=== PATIENT | female | born 1965 | race Caucasian/White ===

== ENCOUNTER 2018-07-27 14:57 | Emergency (ER) | payer OTHER ==
[2018-07-27 15:31] LABS: Bilirubin Negative (Negative); Blood, Urine Trace (Negative); Clarity CLOUDY (Clear); Glucose, Urine (Dipstick) Negative (Negative); Leukocyte Negative (Negative); Nitrite Negative (Negative); Protein, Urine (Dipstick) Negative (Neg-Trace); Specific Gravity, Urine 1.023 (1.002-1.036); pH, Urine 5.5 (5.0-9.0)
[2018-07-27 15:33] LABS: Bacteria/HPF None Seen HPF (None Seen); RBC/HPF 0-3 HPF (0-3)
[2018-07-27 15:35] LABS: Pathc Cast-AUWi Flag 3.26 (0-2.49)
[2018-07-27 15:42] LABS: #Eosinphils 0.1 thou/uL (0.0-0.7); #Lymphocytes 0.8 thou/uL (1.20-3.40); #Monocytes 0.2 thou/uL (0.11-0.59); #Neutrophils 2.5 thou/uL (1.40-6.50); %Basophils 1.1 % (0.0-1.0); %Eosinophils 2.1 % (0.0-10.0); %Lymphocytes 23.1 % (21.0-51.0); %Monocytes 4.8 % (0.0-10.0); %Neutrophils 68.9 % (42.0-75.0); Mean Corpuscular HGB CONC 32.1 g/dL (32.0-36.0); Mean Corpuscular Hemoglobin 26.7 pg (27.0-31.0); Mean Corpuscular Volume 83.4 fL (78.0-98.0); Mean Platelet Volume 8.2 fL (7.4-10.4); Platelet Count 141 thou/uL (130-400); RBC Distribution Width 15.5 % (11.5-14.5); White Blood Cell (WBC) Count 3.6 thou/uL (4.8-10.8)
[2018-07-27 15:44] LABS: Hyaline Casts/LPF 0-3 HYALINE CAST LPF (0-3 Hyaline); Other Casts/LPF 0-3 EPITH CASTS LPF (0-3 Hyaline); Renal Epithelial 0-3 HPF (0-3); Transitional Epithelial 0-3 HPF (0-3)
[2018-07-27 16:02] LABS: ALT (SGPT) 20 U/L (8-55); AST (SGOT) 22 U/L (5-34); Albumin 3.4 g/dL (3.5-5.0); Alkaline Phosphatase 178 U/L (40-150); Anion Gap 14 mmol/L (10-20); BUN (Urea Nitrogen) 18 mg/dL (9.8-20.1); Bilirubin, Total 0.6 mg/dL (0.2-1.2); Calc. Creatinine Clearance 0 mL/min (70-130); Calcium 9.1 mg/dL (7.8-10.44); Carbon Dioxide 27 mmol/L (22-29); Chloride 105 mmol/L (98-107); Estimated GFR-MDRD 82; Globulin 3.7 g/dL (2.4-3.5); Glucose 168 mg/dL (70-105); Potassium 4.2 mmol/L (3.5-5.1); Protein, Total 7.1 g/dL (6.0-8.3); Sodium 142 mmol/L (136-145)
--- NOTE | 2018-07-27 17:44 | RAD ---
CHEST ONE VIEW: 07/27/18 HISTORY: Productive cough. COMPARISON: 04/02/07 study. Heart size is borderline. There is some bibasilar lung changes slightly more confluent in the right c ostophrenic angle. IMPRESSION: 1. Borderline to minimal cardiomegaly. 2. Bibasilar lung change probably on the basis of atelectasis although the changes in the right base are slightly more confluent and could represent some early infiltrative changes. POS: ERIK
[2018-07-27] MEDS ORDERED: Acetaminophen 500 MG TAB ONE (18:26)
== END 2018-07-27 18:54 | disposition home or self-care (01) ==
LOC: ERS 14:57
DX: J44.9 Chronic obstructive pulmonary disease, unspecified (principal); B37.2 Candidiasis of skin and nail; R10.814 Left lower quadrant abdominal tenderness; R10.9 Unspecified abdominal pain; E11.9 Type 2 diabetes mellitus without complications; F32.9 Major depressive disorder, single episode, unspecified; F17.210 Nicotine dependence, cigarettes, uncomplicated; E66.9 Obesity, unspecified; Z79.84 Long term (current) use of oral hypoglycemic drugs; Z79.899 Other long term (current) drug therapy; Z79.51 Long term (current) use of inhaled steroids; Z79.1 Long term (current) use of non-steroidal anti-inflammatories (NSAID)
CPT/HCPCS: 36415; 36416; 71045; 80053; 81003; 81015; 83880; 85025; 94760

== ENCOUNTER 2018-08-04 12:17 | Inpatient (IN) | payer OTHER ==
[2018-08-04] MEDS ORDERED: Dexamethasone 10 MG/ML VIAL ONE (12:32)
[2018-08-04] MEDS ORDERED: Magnesium 2 GM/50 ML 2 GM in Premix Bag 1 BAG IVPB SCH (12:45)
[2018-08-04 12:52] LABS: #Eosinphils 0.1 thou/uL (0.0-0.7); #Monocytes 0.3 thou/uL (0.11-0.59); #Neutrophils 2.7 thou/uL (1.40-6.50); %Basophils 0.8 % (0.0-1.0); %Lymphocytes 24.8 % (21.0-51.0); %Monocytes 6.3 % (0.0-10.0); %Neutrophils 66.1 % (42.0-75.0); Mean Corpuscular HGB CONC 31.9 g/dL (32.0-36.0); Mean Corpuscular Hemoglobin 26.4 pg (27.0-31.0); Mean Corpuscular Volume 82.6 fL (78.0-98.0); Mean Platelet Volume 8.1 fL (7.4-10.4); Platelet Count 166 thou/uL (130-400); RBC Distribution Width 15.5 % (11.5-14.5); Red Blood Cell (RBC) Count 4.91 mill/uL (4.20-5.40); White Blood Cell (WBC) Count 4.2 thou/uL (4.8-10.8)
[2018-08-04 12:56] LABS: Actual Bicarbonate (HCO3a) 24.2 mEq/L (22-28); Analyzer IN Cardio ER; Base Excess (BEa) -0.9 mEq/L (-2.0 to +3.0); CO2 Tension 41.4 mmHg (35.0-45.0); Carboxyhemoglobin (COHb) 1.5 gm% (0.0-3.0); Hemoglobin (Hb) 13.3 g/dL (12.0-16.0); O2 Tension (PaO2) 111.9 mmHg (80.0-100.0); Potassium - ABG Lab 3.38 mmol/L (3.70-5.30); pH, Arterial 7.38 (7.35-7.45)
[2018-08-04 13:02] LABS: Puncture Site L.R.
--- NOTE | 2018-08-04 13:07 | RAD ---
CHEST 1 VIEW: Date: 08/04/18 COMPARISON: 07/27/18. HISTORY: Difficulty breathing. FINDINGS: Limited evaluation due to portable technique and motion. Heart size is normal. There is atheroscleros is of aorta. Pulmonary vessels are within normal limits. Right pleural effusion with adjacent parench ymal changes. Patchy interstitial opacities may represent edema. No pneumothorax. IMPRESSION: Interstitial edema with right lower lobe pleural effusion with adjacent parenchymal changes due to at electasis, aspiration, or pneumonia. Continued surveillance is recommended. POS: C
[2018-08-04] MEDS ORDERED: diphenhydrAMINE 50 MG/ML VIAL ONE (13:09)
[2018-08-04 13:21] LABS: ALT (SGPT) 20 U/L (8-55); AST (SGOT) 22 U/L (5-34); Albumin 3.5 g/dL (3.5-5.0); Alkaline Phosphatase 195 U/L (40-150); Anion Gap 14 mmol/L (10-20); BUN (Urea Nitrogen) 11 mg/dL (9.8-20.1); Bilirubin, Total 0.6 mg/dL (0.2-1.2); CK (CPK) 80 U/L (29-168); Calc. Creatinine Clearance 0 mL/min (70-130); Calcium 8.7 mg/dL (7.8-10.44); Carbon Dioxide 25 mmol/L (22-29); Chloride 107 mmol/L (98-107); Estimated GFR-MDRD 85; Globulin 3.9 g/dL (2.4-3.5); Glucose 135 mg/dL (70-105); Lipase 17 U/L (8-78); Potassium 3.6 mmol/L (3.5-5.1); Protein, Total 7.4 g/dL (6.0-8.3); Sodium 142 mmol/L (136-145)
[2018-08-04] MEDS ORDERED: Ondansetron PF 4 MG/2 ML Vial ONE (13:58)
[2018-08-04] MEDS ORDERED: Albuterol Sulfate 2.5 mg/0.5 ml Neb ONE (14:45)
[2018-08-04] MEDS ORDERED: Ondansetron ODT 4 MG TAB SL PRN (17:51)
[2018-08-04] MEDS ORDERED: Ondansetron PF 4 MG/2 ML Vial IVP PRN (17:51)
[2018-08-04] MEDS ORDERED: Aspirin 325 mg Enteric Coated Tablet PO SCH (18:00)
[2018-08-04 18:21] VITALS: BMI 47.8
[2018-08-04] MEDS ORDERED: HYDROcodone/Acetaminophen 5/325 mg Tablet PO PRN (20:01)
[2018-08-04] MEDS: HYDROcodone/Acetaminophen 5/325 mg Tablet PO PRN (20:44)
[2018-08-04] MEDS ORDERED: Dextrose 5% in Water 1,000 ML IV PRN (21:58)
[2018-08-04] MEDS ORDERED: Dextrose 50% Abboject 50 ML SYRINGE SLOW IVP PRN (21:58)
[2018-08-04] MEDS: HumaLOG 300 UNITS/3 ML VIAL SC PRN (22:17)
[2018-08-04] MEDS: methylPREDNISolone Sod Succ 40 MG VIAL IVP SCH (23:17)
[2018-08-05] MEDS: HYDROcodone/Acetaminophen 5/325 mg Tablet PO PRN ×5 (00:43→21:09)
[2018-08-05] MEDS: methylPREDNISolone Sod Succ 40 MG VIAL IVP SCH ×3 (05:09→21:48)
[2018-08-05] MEDS: HumaLOG 300 UNITS/3 ML VIAL SC PRN ×3 (06:00→16:24)
[2018-08-05] MEDS: Methocarbamol 500 MG TAB PO SCH ×3 (07:47→21:09)
[2018-08-05] MEDS: Varenicline Tartrate 0.5 MG TAB PO SCH ×2 (07:47→21:09)
--- NOTE | 2018-08-05 08:01 | HP ---
PRIMARY CARE PHYSICIAN: Dr. Andrey Benedict. CHIEF COMPLAINT: Shortness of breath. HISTORY OF PRESENT ILLNESS: This is a 53-year-old female patient with past medical history of COPD. The patient has came to the hospital complaining of shortness of breath with no clear triggers, no alleviating factors. Saturation was in the 92%, she wears 2 L at home. The symptoms have been present for the past few days and has severe and gradually worsening associated with audible wheezing. REVIEW OF SYSTEMS: CONSTITUTIONAL: No fever, chills, or generalized weakness. RESPIRATORY: The patient has cough. No sputum production. Shortness of breath. Wheezing. CARDIOVASCULAR: No chest pain or palpitation. GASTROINTESTINAL: No nausea. No vomiting, diarrhea, or abdominal pain. INSURANCE CLAIMS SPECIALIST: No dizziness, headache, or feeling lightheaded. GENITOURINARY: No burning on urination. EXTREMITIES: No leg swelling. All other systems were reviewed and negative except for the findings mentioned above. PAST MEDICAL HISTORY: Positive for COPD exacerbation; morbid obesity; diabetes, type 2; and cervical cancer. PAST SURGICAL HISTORY: removal, appendectomy, cholecystectomy, , and hysterectomy. PSYCHIATRIC HISTORY: Depression. SOCIAL HISTORY: No alcohol. No drugs. The patient smokes cigarettes, two packs per day. Lives at home with family. KNOWN ALLERGIES: Latex and morphine. CURRENT MEDICATIONS: 1. Ibuprofen. 2. ProAir. 3. Albuterol sulfate. 4. Chantix. 5. Gabapentin. 6. Methocarbamol. 7. Sertraline. 8. Glipizide. 9. Metformin. PHYSICAL EXAMINATION: VITAL SIGNS: On presentation; blood pressure 140/114, heart rate 116, respiratory rate was 24, temperature 98.6, pain was 8, and oxygen saturation was 100% on 4 L. GENERAL APPEARANCE: The patient is alert, oriented, no acute distress, morbidly obese. HEENT: Eyes, normal conjunctivae. Moist oral mucosa. Anicteric. No JVD. RESPIRATORY: Bilateral air entry. The patient has bilateral wheezing and rhonchi. Symmetric expansion. The patient has rales in the right lower lobe . CARDIOVASCULAR: Normal rate. Regular rhythm. No murmurs. No gallop. No edema. ABDOMEN: Soft. Normal bowel sounds. MUSCULOSKELETAL: Range of motion is at baseline and strength. SKIN: Warm, intact. No pallor. No rash. No redness. Capillary refill seems to be intact. NEURO: No evidence of any new focal weakness. Cranial nerves seem to be intact. PSYCH: The patient is in good mood. No anxiety. Optimal judgment. IMAGING DATA: EKG was reviewed. The patient has normal sinus rhythm with a rate of 92 with posterior fascicular block. Chest x-ray, right lower lobe pleural effusion. No infiltrates. LABORATORY DATA: Reviewed. The patient has a white count 4.2, hemoglobin 13, and MCV 82.6. Blood gas was done with pH 7.38, pCO2 of 41, and PO2 of 111. BiPAP at 12/5, rate 4, inspired oxygen 40%. Chemistry; sodium 142, potassium 3.6, chloride 107, carbon dioxide 25, anion gap 14, BUN 11, creatinine 0.72, GFR 85, and glucose 135. Lactic acid 1.8 and calcium 8.7. LFTs were negative. Alkaline phosphatase 195. Beta natriuretic peptide 1391. ASSESSMENT AND PLAN: The patient will be placed in the hospital with following medical problems; 1. Chronic obstructive pulmonary disease exacerbation associated with possible right lower lobe pneumonia. The patient has rales on the physical exam. The patient is on antibiotics, nebs, and steroids. We will follow up cultures and treat accordingly. 2. Possible right lower lobe infiltrate. The patient has rales on physical exam. This might be triggering the chronic obstructive pulmonary disease exacerbation. Treatment as above. 3. Morbidly obese. The patient reported she has lost 100 pounds and that had been intentional. Encourage to continue to lose weight and have a healthy diet. 4. Possible sepsis. The patient is leukopenic. The patient has possible pneumonia, rate in the 20s. Treatment as above. The patient received antibiotics. 5. Uncontrolled hypertension. The patient has blood pressure of 140/114, we will reconcile home medications. We will monitor and treat accordingly. We will not treat aggressively as the patient seems to be septic. 6. Uncontrolled diabetes. Reconcile home medications and place the patient on sliding scale for optimal control. 7. Acute hypoxic respiratory failure. The patient is needing an increased level of oxygen to keep saturation above 90. We will continue to supplement oxygen. 8. Deep venous thrombosis prophylaxis. Job ID: [id number]
--- NOTE | 2018-08-05 12:42 | PDOC.PN ---
- Subjective Encounter Start Date: 08/05/18 Encounter Start Time: 12:20 Subjective: breathing better now -: uses only rescue inh/alb neb prn -: on chantix, is trying to quit smoking - Objective MAR Reviewed: Yes Vital Signs & Weight: Vital Signs (12 hours) Temp Pulse Resp BP Pulse Ox 08/05/18 11:29 98.2 F 93 17 144/82 H 98 08/05/18 11:16 84 20 98 08/05/18 07:45 98 08/05/18 07:05 98.3 F 84 17 161/84 H 98 08/05/18 07:03 95 20 94 L 08/05/18 04:36 98.0 F 90 20 131/73 94 L 08/05/18 02:06 16 Weight Weight 314 lb 9.6 oz Result Diagrams: 08/04/18 12:39 08/04/18 12:39 Additional Labs: Accuchecks 08/05/18 08/05/18 08/04/18 11:34 05:34 19:31 POC Glucose 251 H 234 H 338 H Phys Exam - Physical Examination HEENT: PERRLA, moist MMs Neck: no JVD, supple Respiratory: no rales, wheezing present Cardiovascular: RRR, no significant murmur Gastrointestinal: soft, non-tender, positive bowel sounds Musculoskeletal: no edema, pulses present Neurological: non-focal, moves all 4 limbs Psychiatric: normal affect, A&O x 3 Dx/Plan (1) COPD exacerbation Code(s): J44.1 - CHRONIC OBSTRUCTIVE PULMONARY DISEASE W (ACUTE) EXACERBATION Status: Acute (2) Morbid obesity with BMI of 45.0-49.9, adult Code(s): E66.01 - MORBID (SEVERE) OBESITY DUE TO EXCESS CALORIES; Z68.42 - BODY MASS INDEX (BMI) 45.0-49.9, ADULT Status: Chronic (3) HTN (hypertension) Code(s): I10 - ESSENTIAL (PRIMARY) HYPERTENSION Status: Chronic Qualifiers: Hypertension type: essential hypertension Qualified Code(s): I10 - Essential (primary) hypertension (4) DM type 2 (diabetes mellitus, type 2) Status: Chronic Qualifiers: Diabetes mellitus termite control representative insulin use: without [place] use Diabetes mellitus complication status: without complication Qualified Code(s): E11.9 - Type 2 diabetes mellitus without complications (5) Chronic respiratory failure Code(s): J96.10 - CHRONIC RESPIRATORY FAILURE, UNSP W HYPOXIA OR HYPERCAPNIA Status: Acute Qualifiers: Respiratory failure complication: unspecified whether with hypoxia or hypercapnia Qualified Code(s): J96.10 - Chronic respiratory failure, unspecified whether with hypoxia or hypercapnia Comment: on oxygen at bedtime - Plan is on nebs, steroids, empiric levaquin -: will add dulera, continue chantix, metformin, glipizide -: has not seen pulm in the past, will consult -: hemostable -: to ambulate in hallway as tolerated * . Review of Systems - Medications/Allergies Allergies/Adverse Reactions: Allergies Allergy/AdvReac Type Severity Reaction Status Date / Time latex Allergy Verified 08/04/18 12:38 morphine Allergy Verified 08/04/18 18:14 TIDE LAUNDRY DETERGENT Allergy Uncoded 08/04/18 18:14 Medications: Current Medications Hydrocodone Bitart/Acetaminophen ([place] 5/325) 1 tab PO Q4H PRN PRN Reason: Mild-Moderate Pain (1-5) Hydrocodone Bitart/Acetaminophen ([place] 5/325) 2 tab PO Q4H PRN PRN Reason: Moderate to Severe Pain (6-10) Last Admin: 08/05/18 09:30 Dose: 2 tab Albuterol/Ipratropium (Duoneb) 3 ml NEB Q4H ATTILA Stop: 08/08/18 01:31 Last Admin: 08/05/18 11:16 Dose: 3 ml Albuterol/Ipratropium (Duoneb) 3 ml NEB Q2H PRN PRN Reason: SOB &/or Wheezing Stop: 08/08/18 01:31 Dextrose/Water (Dextrose 50%) 25 gm SLOW IVP PRN PRN PRN Reason: Hypoglycemia Docusate Sodium (Colace) 100 mg PO BID [facility] Gabapentin (Neurontin) 300 mg PO HS [facility] Glipizide (Glucotrol Xl) 5 mg PO DAILY [facility] Glucagon (Glucagon) 1 mg IM PRN PRN PRN Reason: Hypoglycemia Dextrose/Water (D5w) 1,000 mls @ 0 mls/hr IV .Q0M PRN PRN Reason: Hypoglycemia Levofloxacin 500 mg/ Device 100 mls @ 100 mls/hr IVPB Q24HR [facility] Last Admin: 08/05/18 11:37 Dose: 100 mls Ibuprofen (Motrin) 200 mg PO BID [facility] Insulin Human Lispro (Humalog) 0 units SC .MODERATE SLIDING SC PRN PRN Reason: Moderate Correctional Scale Last Admin: 08/05/18 12:13 Dose: 6 unit Metformin HCl (Glucophage) 1,000 mg PO BID[facility] Methocarbamol (Robaxin) 750 mg PO TID [facility] Last Admin: 08/05/18 07:47 Dose: 750 mg Methylprednisolone Sodium Succinate (Solu-Medrol) 20 mg IVP Q8HR [facility] Ondansetron HCl (Zofran) 4 mg IVP Q6H PRN PRN Reason: Nausea/Vomiting Stop: 08/08/18 01:31 Ondansetron HCl (Zofran Odt) 4 mg SL Q6H PRN PRN Reason: Nausea/Vomiting Stop: 08/08/18 01:31 Polyethylene Glycol (Miralax) 17 gm PO DAILY [facility] Sertraline HCl (Zoloft) 100 mg PO DAILY [facility] Last Admin: 08/05/18 07:47 Dose: 100 mg Sodium Chloride (Flush - Normal Saline) 10 ml IVF PRN PRN PRN Reason: Saline Flush Varenicline (Chantix) 1 mg PO BID [facility] Last Admin: 08/05/18 07:47 Dose: 1 mg
[2018-08-05] MEDS: Nystatin Powder 15 GM BOT TOP PRN (16:25)
--- NOTE | 2018-08-05 16:38 | CON ---
DATE OF CONSULTATION: HISTORY OF PRESENT ILLNESS: Catherine Terrazas is a 53-year-old, morbidly obese, female, who weighs 133 kg, presented to the ER with apparently shortness of breath, cough, and apparently chest pain on 07/27. She came to the ER on 08/04, again with symptoms of difficulty breathing, coughing, and sputum is relatively clear. X-ray shows now right-sided pleural effusion. She has smoked most of her life, 2 packs a day. She has severe limitation of activity. She can barely walk even 50 feet without getting markedly short of breath. She is presently disabled and unemployed. PAST MEDICAL HISTORY: COPD, diabetes, and hypertension. PAST SURGICAL HISTORY: Including uterine and cervical cancer, treated in [place], followed by radiation treatment. In addition, she has had cholecystectomy, , hernia repair, and hysterectomy. MEDICATIONS: Home medications include: 1. Metformin 1000 b.i.d. 2. Glipizide ER 5. 3. Chantix. 4. Zoloft 100. 5. Ibuprofen. 6. Gabapentin 300. 7. Albuterol inhaler. Since admission, she is started on: 1. Neb treatments. 2. Antibiotics, Levaquin. 3. Steroids. SOCIAL HISTORY: Unremarkable. Tobacco: As noted. Alcohol: None. FAMILY HISTORY: Unremarkable. REVIEW OF SYSTEMS: Ten-point, negative. PHYSICAL EXAMINATION: VITAL SIGNS: O2 saturation is 96% on 2 L, respirations 17, pulse 96, temperature 98.5, blood pressure 123/74. CHEST: Decreased breath sounds. No wheezing. CARDIAC: Normal S1 and S2. No gallop. ABDOMEN: No mass. LABORATORY DATA: White count 4000, H and H 13 and 40, platelet count is 166. Chemistry profile; glucose elevated, otherwise BUN and creatinine are normal. X-ray shows right pleural effusion. BNP is 1391. IMPRESSION: 1. Right pleural effusion. 2. Morbid obesity. 3. Chronic obstructive pulmonary disease. PLAN: Right pleural effusion could very well be from some congestive heart failure or pneumonia or pleurisy. Echo is being ordered. Otherwise, continue antibiotics, neb treatments, and supportive care. We will follow. TIME SPENT: Consultation note of 70 minutes, 50% in direct patient care. Job ID: [id number]
[2018-08-05] MEDS: Docusate 100 MG CAP PO SCH (21:09)
[2018-08-05] MEDS: Gabapentin 300 MG CAP PO SCH (21:09)
[2018-08-05] MEDS: Ibuprofen 200 MG TAB PO SCH (21:09)
[2018-08-06] MEDS: HYDROcodone/Acetaminophen 5/325 mg Tablet PO PRN ×5 (02:23→23:35)
[2018-08-06] MEDS: methylPREDNISolone Sod Succ 40 MG VIAL IVP SCH ×3 (05:24→21:31)
[2018-08-06] MEDS: HumaLOG 300 UNITS/3 ML VIAL SC PRN ×2 (05:24→12:36)
[2018-08-06] MEDS: Methocarbamol 500 MG TAB PO SCH ×3 (08:47→19:58)
[2018-08-06] MEDS: Varenicline Tartrate 0.5 MG TAB PO SCH ×2 (08:48→19:59)
[2018-08-06] MEDS: Docusate 100 MG CAP PO SCH ×2 (08:48→19:58)
[2018-08-06] MEDS: Ibuprofen 200 MG TAB PO SCH ×2 (08:48→19:58)
[2018-08-06] MEDS: metFORMIN 500 MG TAB PO SCH ×2 (08:48→16:56)
[2018-08-06] MEDS: Polyethylene Glycol 3350 17 GM Packet PO SCH (08:49)
--- NOTE | 2018-08-06 09:50 | PRG ---
DATE OF SERVICE: 08/06/2018 SUBJECTIVE: Catherine Terrazas is doing better this morning. She wants to go home. OBJECTIVE: VITAL SIGNS: Her saturations are 97% on 2 L, respirations 21, temperature 97.9, pulse 99, and blood pressure 130/87. CHEST: Decreased breath sounds bilaterally. CARDIAC: Normal S1 and S2. No gallops. ABDOMEN: No masses. ASSESSMENT: 1. Right pleural effusion. 2. Congestive heart failure. 3. Morbid obesity. PLAN: Continue antibiotics. X-ray tomorrow. If much improved, she could go home on oral antibiotics. Job ID: [id number]
--- NOTE | 2018-08-06 13:56 | PDOC.PN ---
- Subjective Encounter Start Date: 08/06/18 Encounter Start Time: 13:55 Ms. Terrazas was seen today in follow-up of respiratory failure. She does not have any new complaints. she tells me she feels better, but she can barely stay awake. - Objective MAR Reviewed: Yes Vital Signs & Weight: Vital Signs (12 hours) Temp Pulse Resp BP Pulse Ox 08/06/18 11:01 92 20 100 08/06/18 08:27 98 08/06/18 08:26 94 20 98 08/06/18 08:00 97 08/06/18 07:06 97.9 F 99 21 H 130/87 97 08/06/18 05:11 98.2 F 96 18 140/82 93 L 08/06/18 02:21 84 20 97 Weight Weight 314 lb 9.6 oz I&O: 08/05/18 08/06/18 08/07/18 06:59 06:59 06:59 Intake Total 1581 Balance 1581 Result Diagrams: 08/04/18 12:39 08/04/18 12:39 Additional Labs: Accuchecks 08/06/18 08/06/18 08/05/18 11:42 05:09 21:05 POC Glucose 195 H 232 H 173 H 08/05/18 15:20 POC Glucose 260 H Phys Exam - Physical Examination HEENT: PERRLA Respiratory: no rales, no rhonchi + mild expiratory wheeze Cardiovascular: RRR, no significant murmur, no rub Gastrointestinal: soft, non-tender, no distention, positive bowel sounds Musculoskeletal: pulses present, edema present 1-2+ pitting edema in both lower extremities Dx/Plan (1) Acute and chronic respiratory failure Code(s): J96.20 - ACUTE AND CHR RESP FAILURE, UNSP W HYPOXIA OR HYPERCAPNIA Status: Acute (2) COPD exacerbation Code(s): J44.1 - CHRONIC OBSTRUCTIVE PULMONARY DISEASE W (ACUTE) EXACERBATION Status: Acute (3) DM type 2 (diabetes mellitus, type 2) Status: Chronic Qualifiers: Diabetes mellitus terminal make up operator insulin use: without terminal make up operator use Diabetes mellitus complication status: without complication Qualified Code(s): E11.9 - Type 2 diabetes mellitus without complications (4) HTN (hypertension) Code(s): I10 - ESSENTIAL (PRIMARY) HYPERTENSION Status: Chronic Qualifiers: Hypertension type: essential hypertension Qualified Code(s): I10 - Essential (primary) hypertension (5) Morbid obesity with BMI of 45.0-49.9, adult Code(s): E66.01 - MORBID (SEVERE) OBESITY DUE TO EXCESS CALORIES; Z68.42 - BODY MASS INDEX (BMI) 45.0-49.9, ADULT Status: Chronic - Plan * Acute on chronic respiratory failure- improved- Continue Levaquin Duonebs and steroids * HTN- blood pressure is stable * DM- blood glucose is a bit elevated- continue glypizide and Metformin, as well as SSI * Echo results are pending. * Probable Obesity Hypoventilation syndrome- I have recommended outpatient sleep study
--- NOTE | 2018-08-06 14:06 | PQF ---
CLINICAL DOCUMENTATION IMPROVEMENT CLARIFICATION FORM: ICD-10 Updated PLEASE DO AN ADDENDUM TO THE PROGRESS NOTE WITH ANY DOCUMENTATION UPDATES OR ADDITIONS AND CARRY THROUGH TO DC SUMMARY. THANK YOU. DATE: 08/06/18 ATTN : DR. LOOMIS Please exercise your independent, professional judgment in responding to the clarification form. Clinical indicators are provided on the bottom of this form for your review Please check appropriate box(s) to clarify if the following diagnosis has been ruled in or ruled out: "SEPSIS" [ X ] Ruled in diagnosis [ ] Continue to treat [ ] Resolved [ ] Ruled out diagnosis [ ] Cannot rule out diagnosis [ ] Other diagnosis [ ] Unable to determine In addition, please specify: Present on Admission (POA): [ X ] Yes [ ] No [ ] Unable to determine For continuity of documentation, please document condition throughout progress notes and discharge summary. Thank You. CLINICAL INDICATORS - SIGNS / SYMPTOMS / LABS H&P: "POSSIBLE SEPSIS" PULSE 116 RR 27 RISKS: PNEUMONIA COPD RESPIRATORY FAILURE TREATMENT: BIPAP IV LEVAQUIN (ER-PRESENT) IV FLUIDS (ER) BLOOD CULTURES (This form is maintained as a part of the permanent medical record) 2014 [employer]. All Rights Reserved [email or web address] Office: [phone] [facility]
[2018-08-06] MEDS: Nystatin Powder 15 GM BOT TOP PRN (18:35)
[2018-08-06] MEDS: Gabapentin 300 MG CAP PO SCH (19:58)
[2018-08-07] MEDS: HYDROcodone/Acetaminophen 5/325 mg Tablet PO PRN ×5 (03:39→20:11)
[2018-08-07] MEDS: HumaLOG 300 UNITS/3 ML VIAL SC PRN ×3 (05:40→18:23)
[2018-08-07] MEDS: methylPREDNISolone Sod Succ 40 MG VIAL IVP SCH (05:40)
--- NOTE | 2018-08-07 08:01 | RAD ---
XR Chest Pa Lat STANDARD HISTORY: Pneumonia COMPARISON: 08/04/2018 FINDINGS: The heart size is borderline. There is mild prominence of the pulmonary vascularity. There is a right pleural effusion with adjacent infiltrate/atelectatic change. No pneumothoraces are seen.
[2018-08-07] MEDS: metFORMIN 500 MG TAB PO SCH ×2 (08:53→16:27)
[2018-08-07] MEDS: Ibuprofen 200 MG TAB PO SCH ×2 (08:53→20:04)
[2018-08-07] MEDS: Polyethylene Glycol 3350 17 GM Packet PO SCH (08:54)
[2018-08-07] MEDS: Methocarbamol 500 MG TAB PO SCH ×3 (08:54→20:04)
[2018-08-07] MEDS: Docusate 100 MG CAP PO SCH ×2 (08:54→20:03)
[2018-08-07] MEDS: Varenicline Tartrate 0.5 MG TAB PO SCH ×2 (08:56→20:04)
--- NOTE | 2018-08-07 09:14 | PRG ---
DATE OF SERVICE: 08/07/2018 SUBJECTIVE: This morning, she is awake, alert, and responsive. She is coughing up some brown sputum, but clearly afebrile. OBJECTIVE: VITAL SIGNS: Temperature 97, pulse 105, respirations 22, saturations are 95% on 2 L, blood pressure 147/80. CHEST: Decreased breath sounds in the right lung without any crackles, left unremarkable. CARDIAC: Normal S1 and S2. No gallops. ABDOMEN: No masses. IMPRESSION: 1. Persistent right pleural effusion, new. 2. Morbid obesity. PLAN: CT chest is being ordered without contrast to assess the quality of the fluid. Continue antibiotics, switch over to p.o. prednisone. We will follow. Reassess once I look at the CAT scan. Job ID: [id number]
--- NOTE | 2018-08-07 09:22 | CT ---
CT CHEST WITHOUT CONTRAST: HISTORY: Shortness of breath, abnormal chest x-ray, right pleural effusion FINDINGS: Absence of IV contrast reduces the sensitivity of the exam particularly for the evaluation of mediast inal, hilar and vascular structures. There are vascular calcifications without evidence of aneurysmal dilatation of the thoracic aorta. No pericardial or left pleural effusion is seen. There is a moderate-sized right pleural effusion. There is consolidation in the right middle lobe. No pneumothoraces are seen. There are degenerative changes in the spine. Upper abdominal tomograms demonstrate changes of cholecy stectomy. IMPRESSION: Moderate-sized right pleural effusion and consolidation in the right middle lobe.
[2018-08-07 10:02] LABS: Fluid, pH - Pleural Fld 7.22 (7.60 - 7.66)
--- NOTE | 2018-08-07 10:29 | RAD ---
XR Chest 1 View Portable HISTORY: Right pleural effusion, thoracenteses COMPARISON: Earlier exam of same date FINDINGS: The heart is enlarged. There has been near complete resolution of the right pleural effusio n noted on the earlier exam. No pneumothorax is seen.
[2018-08-07 10:46] LABS: Fluid, Triglycerides 14 mg/dL (Not Available); Pleural Fluid, Amylase Less than 30 U/L (Not Available); Pleural Fluid, Glucose 208 mg/dL; Pleural Fluid, LDH 89 U/L (Not Available); Pleural Fluid, Protein 1.4 g/dL
[2018-08-07 10:49] LABS: BF Color Red; Body Fluid Source Thoracentesis Fluid; Clarity Cloudy/Turbid (Clear); RBC Count-Automated 109000 /cumm; Tube # EDTA; WBC/NonHematic-Auto 252 /cumm
[2018-08-07 11:34] LABS: BF Segmented Neutrophils 24 %; Cell Count Non Hematic 45 %; Lymphocytes 31 %
--- NOTE | 2018-08-07 12:54 | EKG ---
Test Reason : Blood Pressure : / mmHG Vent. Rate : 092 BPM Atrial Rate : 092 BPM P-R Int : 164 ms QRS Dur : 096 ms QT Int : 388 ms P-R-T Axes : 036 121 044 degrees QTc Int : 479 ms Normal sinus rhythm Left posterior fascicular block Cannot rule out Anterior infarct , age undetermined Abnormal ECG Confirmed by JOHN PAUL ORTIZ, FRANCISCO JAVIER ([id number]), assistant production editor [place] FOSS ([id number]) on 08/07/2018 12:54:30 PM Referred By: Confirmed By:FRANCISCO JAVIER COKER MD
--- NOTE | 2018-08-07 14:44 | OP ---
DATE OF PROCEDURE: 08/07/2018 PROCEDURE PERFORMED: Thoracentesis. INDICATION: Pleural effusion. DESCRIPTION OF PROCEDURE: After informed consent, the right posterior thorax was cleaned with chlorhexidine and 1% Xylocaine was infiltrated into the right 8th intercostal space in the posterior axillary line with an inch needle all the way to the deep tissue. Unfortunately, we were unable to enter the pleura because of obesity. Therefore, an 18-gauge lumbar puncture needle was used to enter the pleural cavity and 20 mL of sanguineous fluid was removed. Thereafter using an 8-Cypriot catheter, a total of 1200 mL of bloody fluid was removed without any difficulty. Pleural effusion sent for appropriate studies including culture and cytology. Job ID: [id number]
[2018-08-07] MEDS ORDERED: Ketorolac Tromethamine 30 MG/ML VIAL IVP PRN (15:48)
--- NOTE | 2018-08-07 15:48 | PDOC.PN ---
- Subjective Encounter Start Date: 08/07/18 Encounter Start Time: 15:46 Ms. Terrazas was seen today in follow-up of Pneumonia and respiratory failure. She is complaining of pain in her right side, close to the area where she had the thorocentesis. - Objective MAR Reviewed: Yes Vital Signs & Weight: Vital Signs (12 hours) Temp Pulse Resp BP Pulse Ox 08/07/18 14:32 95 16 908 H 08/07/18 10:30 91 20 98 08/07/18 08:00 94 L 08/07/18 07:41 97.9 F 105 H 22 H 147/80 H 94 L 08/07/18 06:45 95 08/07/18 06:43 73 20 98 Weight Weight 314 lb 9.6 oz I&O: 08/06/18 08/07/18 08/08/18 06:59 06:59 06:59 Intake Total 1581 2510 480 Balance 1581 2510 480 Result Diagrams: 08/04/18 12:39 08/04/18 12:39 Additional Labs: Accuchecks 08/07/18 08/07/18 08/06/18 11:40 04:19 19:31 POC Glucose 329 H 262 H 144 H 08/06/18 15:35 POC Glucose 132 H Phys Exam - Physical Examination HEENT: PERRLA + mild wheeze, and decreased breath sounds at the Cardiovascular: RRR, no significant murmur, no rub Gastrointestinal: soft, non-tender, no distention, positive bowel sounds Musculoskeletal: no edema Dx/Plan (1) Acute and chronic respiratory failure Code(s): J96.20 - ACUTE AND CHR RESP FAILURE, UNSP W HYPOXIA OR HYPERCAPNIA Status: Acute (2) COPD exacerbation Code(s): J44.1 - CHRONIC OBSTRUCTIVE PULMONARY DISEASE W (ACUTE) EXACERBATION Status: Acute (3) DM type 2 (diabetes mellitus, type 2) Status: Chronic Qualifiers: Diabetes mellitus laborer marine terminal insulin use: without laborer marine terminal use Diabetes mellitus complication status: without complication Qualified Code(s): E11.9 - Type 2 diabetes mellitus without complications (4) HTN (hypertension) Code(s): I10 - ESSENTIAL (PRIMARY) HYPERTENSION Status: Chronic Qualifiers: Hypertension type: essential hypertension Qualified Code(s): I10 - Essential (primary) hypertension (5) Morbid obesity with BMI of 45.0-49.9, adult Code(s): E66.01 - MORBID (SEVERE) OBESITY DUE TO EXCESS CALORIES; Z68.42 - BODY MASS INDEX (BMI) 45.0-49.9, ADULT Status: Chronic (6) Pleural effusion, right Code(s): J90 - PLEURAL EFFUSION, NOT ELSEWHERE CLASSIFIED Status: Acute - Plan * Right Pleural effusion- likely a para-pneumonic effusion- continue Levaquin and IV steroids * COPD- stable * HTN- blood pressure is stable * DM- blood glucose is a bit elevated, but in acceptable range .
[2018-08-07] MEDS ORDERED: Clopidogrel Bisulfate 75 MG TAB ONE (19:11)
[2018-08-07] MEDS: Gabapentin 300 MG CAP PO SCH (20:03)
[2018-08-08] MEDS: HYDROcodone/Acetaminophen 5/325 mg Tablet PO PRN ×5 (00:38→20:06)
[2018-08-08] MEDS ORDERED: Clopidogrel Bisulfate 75 MG TAB ONE (07:47)
[2018-08-08] MEDS ORDERED: predniSONE 20 MG TAB PO SCH ×2 (08:00→10:52)
[2018-08-08] MEDS: Docusate 100 MG CAP PO SCH ×2 (08:03→20:04)
[2018-08-08] MEDS: Polyethylene Glycol 3350 17 GM Packet PO SCH (08:03)
[2018-08-08] MEDS: Ibuprofen 200 MG TAB PO SCH ×2 (08:03→20:04)
[2018-08-08] MEDS: metFORMIN 500 MG TAB PO SCH ×2 (08:04→18:26)
[2018-08-08] MEDS: Methocarbamol 500 MG TAB PO SCH ×3 (08:05→20:05)
[2018-08-08] MEDS: Varenicline Tartrate 0.5 MG TAB PO SCH ×2 (08:08→20:05)
--- NOTE | 2018-08-08 11:08 | PRG ---
DATE OF SERVICE: 08/08/2018 SUBJECTIVE: Awake, alert, responsive, and doing better. OBJECTIVE: VITAL SIGNS: Saturations 100% on 2 L, respiratory rate 22, temperature 98, blood pressure 131/78. CHEST: Decreased breath sounds without any wheezing. CARDIAC: Normal S1 and S2. No gallops. ABDOMEN: No masses. IMPRESSION: Right pleural effusion, etiology unclear. Morbid obesity. Numbers were surprisingly transudate, though she had a lot of RBCs. PLAN: Switch over to oral medication. She can probably be discharged home tomorrow. X-ray showed much improvement following her thoracentesis. PH of the fluid was 7.2. Job ID: [id number]
[2018-08-08] MEDS: HumaLOG 300 UNITS/3 ML VIAL SC PRN (12:20)
[2018-08-08 14:56] LABS: Base Excess (BEa) 2.7 mEq/L (-2.0 to +3.0); CO2 Tension 58.6 mmHg (35.0-45.0); Calcium, Ionized 1.16 mmol/L (1.12-1.30); Carboxyhemoglobin (COHb) 1.2 gm% (0.0-3.0); Hemoglobin (Hb) 12.9 g/dL (12.0-16.0); O2 Tension (PaO2) 105.4 mmHg (80.0-100.0); Potassium - ABG Lab 5.41 mmol/L (3.70-5.30); pH, Arterial 7.33 (7.35-7.45)
[2018-08-08 15:05] LABS: Puncture Site RRA
--- NOTE | 2018-08-08 15:53 | PDOC.PN ---
- Subjective Encounter Start Date: 08/08/18 Encounter Start Time: 15:52 Ms. Terrazas was seen today for follow-up of COPD exacerbation and pneumonia. She is quite sleepy this morning. She does not have any new complaints. - Objective MAR Reviewed: Yes Vital Signs & Weight: Vital Signs (12 hours) Temp Pulse Resp BP Pulse Ox 08/08/18 08:00 98.4 F 74 22 H 131/78 100 Weight Weight 314 lb 9.6 oz I&O: 08/07/18 08/08/18 08/09/18 06:59 06:59 06:59 Intake Total 2510 1920 480 Balance 2510 1920 480 Result Diagrams: 08/04/18 12:39 08/04/18 12:39 Additional Labs: Accuchecks 08/08/18 08/08/18 08/07/18 11:14 05:23 19:57 POC Glucose 184 H 129 H 84 08/07/18 17:01 POC Glucose 188 H Phys Exam - Physical Examination HEENT: PERRLA + few crackles anteriorly, no rales, and decreased breath sounds at the bases. rales Cardiovascular: RRR, no significant murmur, no rub Gastrointestinal: soft, non-tender, no distention, positive bowel sounds Musculoskeletal: no edema, pulses present Dx/Plan (1) Acute and chronic respiratory failure Code(s): J96.20 - ACUTE AND CHR RESP FAILURE, UNSP W HYPOXIA OR HYPERCAPNIA Status: Acute (2) COPD exacerbation Code(s): J44.1 - CHRONIC OBSTRUCTIVE PULMONARY DISEASE W (ACUTE) EXACERBATION Status: Acute (3) DM type 2 (diabetes mellitus, type 2) Status: Chronic Qualifiers: Diabetes mellitus ad terminal makeup operator insulin use: without half-way use Diabetes mellitus complication status: without complication Qualified Code(s): E11.9 - Type 2 diabetes mellitus without complications (4) HTN (hypertension) Code(s): I10 - ESSENTIAL (PRIMARY) HYPERTENSION Status: Chronic Qualifiers: Hypertension type: essential hypertension Qualified Code(s): I10 - Essential (primary) hypertension (5) Morbid obesity with BMI of 45.0-49.9, adult Code(s): E66.01 - MORBID (SEVERE) OBESITY DUE TO EXCESS CALORIES; Z68.42 - BODY MASS INDEX (BMI) 45.0-49.9, ADULT Status: Chronic (6) Pleural effusion, right Code(s): J90 - PLEURAL EFFUSION, NOT ELSEWHERE CLASSIFIED Status: Acute - Plan * Right sided pneumonia- Her antibiotics have been transitioned to oral. * Pleural fluid is consistent with a transudate- this may be due to diastolic dysfunction * She has not had a chemistry panel in a few days- will check * Somnolence- An ABG was performed- she does have some hypercapnea- she would benefit from an outpatient sleep study- may give a trial of nocturnal Bipap/ CPAP tonight * HTN- blood pressure is stable
[2018-08-08 16:37] LABS: Anion Gap 11 mmol/L (10-20); BUN (Urea Nitrogen) 24 mg/dL (9.8-20.1); Calc. Creatinine Clearance 188 mL/min (70-130); Calcium 8.8 mg/dL (7.8-10.44); Carbon Dioxide 32 mmol/L (22-29); Chloride 99 mmol/L (98-107); Estimated GFR-MDRD 77; Glucose 178 mg/dL (70-105); Potassium 5.7 mmol/L (3.5-5.1); Sodium 136 mmol/L (136-145)
[2018-08-08] MEDS ORDERED: Lidocaine 5% Patch TD SCH (20:00)
[2018-08-08] MEDS: Gabapentin 300 MG CAP PO SCH (20:04)
[2018-08-09] MEDS: HYDROcodone/Acetaminophen 5/325 mg Tablet PO PRN ×5 (00:05→16:35)
[2018-08-09] MEDS ORDERED: Lidocaine Patch Removal 1 EACH TOP SCH (08:00)
[2018-08-09] MEDS: Ibuprofen 200 MG TAB PO SCH (08:38)
[2018-08-09] MEDS: metFORMIN 500 MG TAB PO SCH ×2 (08:38→16:35)
[2018-08-09] MEDS: Docusate 100 MG CAP PO SCH (08:38)
[2018-08-09] MEDS: Polyethylene Glycol 3350 17 GM Packet PO SCH (08:39)
[2018-08-09] MEDS: Methocarbamol 500 MG TAB PO SCH ×2 (08:39→14:41)
[2018-08-09] MEDS: Varenicline Tartrate 0.5 MG TAB PO SCH (08:40)
[2018-08-09] MEDS: HumaLOG 300 UNITS/3 ML VIAL SC PRN (12:11)
[2018-08-09 12:43] LABS: Anion Gap 15 mmol/L (10-20); BUN (Urea Nitrogen) 22 mg/dL (9.8-20.1); Calc. Creatinine Clearance 201 mL/min (70-130); Calcium 9.1 mg/dL (7.8-10.44); Carbon Dioxide 30 mmol/L (22-29); Chloride 99 mmol/L (98-107); Estimated GFR-MDRD 83; Glucose 136 mg/dL (70-105); Potassium 4.6 mmol/L (3.5-5.1); Sodium 139 mmol/L (136-145)
--- NOTE | 2018-08-09 12:54 | PRG ---
DATE OF SERVICE: 08/09/2018 SUBJECTIVE: She was walking downstairs over a couple of 100 feet without getting short of breath. OBJECTIVE: VITAL SIGNS: Saturations are 94% on room air, temperature 97, pulse 70, respiratory rate 22, blood pressure 108/74. LUNGS: No wheezing. No crackles. No shortness of breath. CHEST: Decreased breath sounds. No wheezing. CARDIAC: Normal S1, S2. No gallops. IMPRESSION: Respiratory failure; right pleural effusion, resolved. Cultures negative. Cytology negative. She can be discharged home on antibiotics for several days. She has probably had a parapneumonic effusion even though it was a transudate. Follow up with the primary care physician. Job ID: [id number]
--- NOTE | 2018-08-09 14:29 | PDOC.PN ---
- Subjective Encounter Start Date: 08/09/18 Encounter Start Time: 14:27 Mr. Terrazas was seen today in follow-up of Pneumonia with effusion. She is feeling better, and does not have any new complaints. - Objective MAR Reviewed: Yes Vital Signs & Weight: Vital Signs (12 hours) Temp Pulse Resp BP Pulse Ox 08/09/18 08:39 96 08/09/18 08:00 97.9 F 73 22 H 108/74 96 08/09/18 04:00 98.0 F 91 20 143/83 H 95 Weight Weight 314 lb 9.6 oz I&O: 08/08/18 08/09/18 08/10/18 06:59 06:59 06:59 Intake Total 1919 2189 Balance 1919 2189 Result Diagrams: 08/04/18 12:39 08/09/18 11:59 Additional Labs: Accuchecks 08/09/18 08/09/18 08/08/18 11:34 05:15 19:51 POC Glucose 154 H 128 H 154 H 08/08/18 16:04 POC Glucose 233 H Phys Exam - Physical Examination HEENT: PERRLA Respiratory: no wheezing, no rales, no rhonchi, clear to auscultation bilateral Cardiovascular: RRR, no significant murmur, no rub Gastrointestinal: soft, non-tender, no distention, positive bowel sounds Musculoskeletal: no edema, pulses present Dx/Plan (1) Acute and chronic respiratory failure Code(s): J96.20 - ACUTE AND CHR RESP FAILURE, UNSP W HYPOXIA OR HYPERCAPNIA Status: Acute (2) COPD exacerbation Code(s): J44.1 - CHRONIC OBSTRUCTIVE PULMONARY DISEASE W (ACUTE) EXACERBATION Status: Acute (3) DM type 2 (diabetes mellitus, type 2) Status: Chronic Qualifiers: Diabetes mellitus longterm insulin use: without termite control technician use Diabetes mellitus complication status: without complication Qualified Code(s): E11.9 - Type 2 diabetes mellitus without complications (4) HTN (hypertension) Code(s): I10 - ESSENTIAL (PRIMARY) HYPERTENSION Status: Chronic Qualifiers: Hypertension type: essential hypertension Qualified Code(s): I10 - Essential (primary) hypertension (5) Morbid obesity with BMI of 45.0-49.9, adult Code(s): E66.01 - MORBID (SEVERE) OBESITY DUE TO EXCESS CALORIES; Z68.42 - BODY MASS INDEX (BMI) 45.0-49.9, ADULT Status: Chronic (6) Pleural effusion, right Code(s): J90 - PLEURAL EFFUSION, NOT ELSEWHERE CLASSIFIED Status: Acute - Plan * Acute respiratory failure- improved * Pneumonia- she has been changed to Levaquin p.o. * Will discharge home.
[2018-08-09 16:56] VITALS: BP 140/74; TEMP 97.6
--- NOTE | 2018-08-10 16:57 | DIS ---
DATE OF ADMISSION: 08/04/2018 DATE OF DISCHARGE: 08/09/2018 DISCHARGE DISPOSITION: Home. DISCHARGE DIAGNOSIS: 1. Pneumonia with parapneumonic effusion. 2. Chronic obstructive pulmonary disease exacerbation. 3. Acute on chronic diastolic heart failure. 4. Morbid obesity with life-threatening obesity, the patient is 5 feet 8, 314 pounds with a body mass index of 47.8. 5. Diabetes mellitus. DISCHARGE MEDICATIONS: Include; 1. Levaquin 500 mg 1 p.o. daily for 5 days. 2. Tylenol No. 3 one tablet q.4 hours as needed for pain. 3. Lidoderm patch 12 hours on and 12 hours off. 4. Chantix 1 mg twice daily. 5. Sertraline 100 mg daily. 6. Methocarbamol 750 mg p.o. t.i.d. 7. Metformin 1000 mg twice daily. 8. Ibuprofen 200 mg twice daily. 9. Glipizide 5 mg extended release daily. 10. Gabapentin 300 mg p.o. at bedtime. 11. ProAir inhaler q.4 as needed. PROCEDURES DONE DURING THE ADMISSION: The patient had an echocardiogram in which the ejection fraction was estimated at 50% to 55%. There was some mild mitral regurgitation, trace tricuspid regurgitation. The patient had a CT scan of the chest showing a moderate right-sided pleural effusion and some consolidation in the right middle lobe. The patient had a thoracentesis performed, the findings of which was consistent with a transudate. CODE STATUS: Full code. ALLERGIES: TO LATEX, MORPHINE, AND TIDE LAUNDRY DETERGENT. HOSPITAL COURSE: Ms. Terrazas is a pleasant 53-year-old female, who presented to the emergency room with complaints of feeling short of breath. The full details of which are outlined in the history and physical by Dr. Mcfarlane. She was found to have a right middle lobe pneumonia with a parapneumonic effusion. She was treated with IV antibiotics and also with IV steroids and DuoNebs due to the COPD exacerbation. It was felt that she also has some degree of obesity hypoventilation syndrome and she was told on several occasions during the hospital stay that she should get an outpatient sleep study done. She was seen by Pulmonology during her hospital stay. She underwent thoracentesis with removal of approximately 1.2 L of bloody fluid, which actually turned out to be consistent with a transudate with possibly some blood contamination or red blood cells there. It was felt that she may have had some component of acute on chronic diastolic heart failure as well. After being treated with antibiotics and moderately diuresed, the patient improved and was able to be discharged home with close outpatient followup. Job ID: [id number]
== END 2018-08-09 17:00 | disposition home or self-care (01) | DRG 871 ==
LOC: ERS 12:17 → T4-B 17:47
PROVIDERS: ADMIT Internal Medicine; ATTEND Internal Medicine
PROC: 0W993ZZ Drainage of Right Pleural Cavity, Percutaneous Approach (ICD-10-PCS; principal; 2018-08-07)
DX: A41.9 Sepsis, unspecified organism (principal); J18.9 Pneumonia, unspecified organism; J96.21 Acute and chronic respiratory failure with hypoxia; J90 Pleural effusion, not elsewhere classified; J44.0 Chronic obstructive pulmonary disease with (acute) lower respiratory infection; J44.1 Chronic obstructive pulmonary disease with (acute) exacerbation; E66.2 Morbid (severe) obesity with alveolar hypoventilation; E11.9 Type 2 diabetes mellitus without complications; F17.210 Nicotine dependence, cigarettes, uncomplicated; F32.9 Major depressive disorder, single episode, unspecified; Z90.710 Acquired absence of both cervix and uterus; Z90.49 Acquired absence of other specified parts of digestive tract; Z79.84 Long term (current) use of oral hypoglycemic drugs; Z68.42 Body mass index [BMI] 45.0-49.9, adult; Z85.41 Personal history of malignant neoplasm of cervix uteri
CPT/HCPCS: 36415; 36416; 71045; 71046; 71250; 80048; 80053; 82150; 82550; 82805; 82945; 83605; 83615; 83690; 83880; 83986; 84157; 84478; 84484; 85025; 85060; 87040; 87070; 87116; 87205; 87206; 88112; 88305; 89051; 93005; 93306; 94640; 94644; 94660; 96365; 96375; J1100; J1200; J1642; J1956; J2405; J2920; J3475; J7512; J7611; J7620

== ENCOUNTER 2018-08-22 14:48 | Inpatient (IN) | payer OTHER ==
--- NOTE | 2018-08-22 15:42 | RAD ---
Chest AP view INDICATION: Shortness of breath COMPARISON: August 07, 2018 FINDINGS: Lungs:Bibasilar atelectasis Cardiac silhouette pulmonary vasculature:Moderate cardiomegaly with moderate pulmonary vascular conge stion and perihilar edema Pleural spaces:Small bilateral pleural effusions Upper abdomen:No abnormality seen. Osseous structures: No acute osseous abnormality. Additional findings:None. IMPRESSION: Findings suspicious for CHF
[2018-08-22] MEDS ORDERED: Aspirin Chewable 81 MG TAB ONE (16:32)
[2018-08-22] MEDS ORDERED: Furosemide 40 MG/4 ML VIAL ONE (16:32)
[2018-08-22 16:35] LABS: Hemoglobin 11.8 g/dL (12.0-16.0); Mean Corpuscular HGB CONC 30.8 g/dL (32.0-36.0); Mean Corpuscular Volume 84.3 fL (78.0-98.0); Mean Platelet Volume 8.5 fL (7.4-10.4); Platelet Count 140 thou/uL (130-400); RBC Distribution Width 15.9 % (11.5-14.5); Red Blood Cell (RBC) Count 4.53 mill/uL (4.20-5.40); White Blood Cell (WBC) Count 16.2 thou/uL (4.8-10.8)
[2018-08-22 16:54] LABS: Anisocytosis SLIGHT = 6-15 cells (100X) (0-5/hpf); Band 20 % (5-11); Hypochromia SLIGHT = 6-15 cells (100X) (0-5/hpf); Lymphocytes 1 % (21-51); MDiff Complete? YES; Metamyelocyte 2 % (0-0); Monocytes 4 % (0-10); Neutrophil 73 % (42-75); Platelet Morphology Comment Appears Adequate; Polychromasia SLIGHT = 2-3 cells (100X) (0-2/hpf)
[2018-08-22] MEDS ORDERED: HYDROcodone/Acetaminophen 5/325 mg Tablet ONE (16:54)
[2018-08-22 16:55] LABS: ALT (SGPT) 23 U/L (8-55); AST (SGOT) 25 U/L (5-34); Albumin 3.1 g/dL (3.5-5.0); Alkaline Phosphatase 205 U/L (40-150); Anion Gap 13 mmol/L (10-20); BUN (Urea Nitrogen) 17 mg/dL (9.8-20.1); Bilirubin, Total 0.9 mg/dL (0.2-1.2); Calc. Creatinine Clearance 0 mL/min (70-130); Calcium 8.5 mg/dL (7.8-10.44); Carbon Dioxide 25 mmol/L (22-29); Chloride 106 mmol/L (98-107); Estimated GFR-MDRD 86; Globulin 3.1 g/dL (2.4-3.5); Glucose 196 mg/dL (70-105); Potassium 3.7 mmol/L (3.5-5.1); Protein, Total 6.2 g/dL (6.0-8.3); Sodium 140 mmol/L (136-145)
[2018-08-22 20:16] LABS: Troponin I 0.014 ng/mL (< 0.028)
[2018-08-22] MEDS ORDERED: Ketorolac Tromethamine 30 MG/ML VIAL IVP SCH (22:00)
[2018-08-22 23:12] LABS: Troponin I 0.032 ng/mL (< 0.028)
[2018-08-23] MEDS ORDERED: Bacteriostatic Water 30 ML VIAL FS PRN (01:43)
[2018-08-23] MEDS ORDERED: cefTRIAXone\\ROCEPHIN 2 GM in Sodium Chloride 0.9% 100 ML IVPB SCH (02:00)
[2018-08-23] MEDS ORDERED: Gabapentin 300 MG CAP PO SCH (02:00)
[2018-08-23] MEDS ORDERED: HYDROcodone/Acetaminophen 10/325 mg Tablet PO SCH (02:00)
[2018-08-23] MEDS ORDERED: Azithromycin 500 MG in Sodium Chloride 0.9% 250 ML 250 ML IVPB SCH (03:00)
[2018-08-23] MEDS ORDERED: methylPREDNISolone Sod Succ 40 MG VIAL IVP SCH (06:00)
[2018-08-23 06:37] LABS: Lactic Acid 1.5 mmol/L (0.5-2.2)
[2018-08-23 06:40] LABS: Anion Gap 13 mmol/L (10-20); BUN (Urea Nitrogen) 20 mg/dL (9.8-20.1); Calc. Creatinine Clearance 210 mL/min (70-130); Calcium 8.5 mg/dL (7.8-10.44); Carbon Dioxide 22 mmol/L (22-29); Chloride 106 mmol/L (98-107); Estimated GFR-MDRD 86; Glucose 165 mg/dL (70-105); Potassium 4.3 mmol/L (3.5-5.1); Sodium 137 mmol/L (136-145)
[2018-08-23 06:49] LABS: Band 8 % (5-11); Hemoglobin 12.4 g/dL (12.0-16.0); MDiff Complete? YES; Mean Corpuscular Hemoglobin 26.4 pg (27.0-31.0); Mean Platelet Volume 8.4 fL (7.4-10.4); Monocytes 3 % (0-10); Neutrophil 89 % (42-75); Platelet Count 110 thou/uL (130-400); Platelet Morphology Comment Appears Decreased; RBC Morphology Normal; White Blood Cell (WBC) Count 10.1 thou/uL (4.8-10.8)
[2018-08-23] MEDS: Mometasone/Formoterol 120 PUFF INHALER INH SCH ×2 (07:09→18:22)
[2018-08-23] MEDS ORDERED: Dextrose 50% Abboject 50 ML SYRINGE SLOW IVP PRN (07:59)
[2018-08-23] MEDS ORDERED: Acetaminophen 325 MG TAB PO PRN (07:59)
[2018-08-23] MEDS ORDERED: Dextrose 5% in Water 1,000 ML IV PRN (07:59)
[2018-08-23] MEDS ORDERED: Ondansetron PF 4 MG/2 ML Vial IVP PRN (07:59)
[2018-08-23] MEDS ORDERED: Nystatin Powder 15 GM BOT TOP PRN ×2 (08:21→08:28)
--- NOTE | 2018-08-23 08:43 | ULT ---
EXAM: LEFT LOWER EXTREMITY DOPPLER VENOUS ULTRASOUND PROVIDED CLINICAL HISTORY: Concern for pulmonary embolus TECHNIQUE: Grayscale and color Doppler sonography with spectral analysis was performed of the left common femora l, femoral, popliteal, posterior tibial, greater saphenous and profunda femoral veins. FINDINGS: There is normal compression, flow and augmentation seen within the deep venous structures o f the left lower extremity. IMPRESSION: No sonographic evidence for left lower extremity deep venous thrombosis.
[2018-08-23] MEDS ORDERED: Non-Formulary Item 1 EACH (Varenicline Tartrate [Chantix] 1 MG) PO SCH (09:00)
--- NOTE | 2018-08-23 09:17 | CT ---
CTA Angio Chest W WO Con 08/23/2018 8:22 AM Indication: Upper back pain and elevated d-dimer with hypoxemia Technique: Multiple CTA images were obtained of the thorax with IV contrast. 3D reformatted images were constructed from the raw data. Comparison: CT of the thorax dated August 07, 2018 Findings: Pulmonary arteries: No central or segmental pulmonary embolus is evident. Heart and Great Vessels: Normal appearing. Lungs:There is persisting consolidation within the right middle lobe. There is new consolidation with in the lingula. There are patchy airspace opacities within the superior segment of the right lower lobe. Pleural space: There is a persistent moderate right pleural effusion. There is a small left pleural effusion which is new Upper Abdomen: There is ascites, cirrhosis with portal hypertension and splenomegaly. Osseous Structures: There is worsening wedge compression abnormality of the previously seen T12 comp ression fracture. There is a stable moderate compression abnormality at T11 Impression: 1 No central or segmental pulmonary embolus. 2. Slight improvement in the pneumonia in the right middle lobe; however, pneumonia persists. There i s a new focus of pneumonia in the lingula as well as within the superior segment of the right lower lobe. 3. Stable moderate right and new small left pleural effusion 4. Worsening wedge compression abnormality of T12 is stable moderate compression abnormality at T11.
[2018-08-23] MEDS: HYDROcodone/Acetaminophen 10/325 mg Tablet PO SCH ×3 (09:27→21:41)
[2018-08-23] MEDS: tiZANidine HCl 4 MG TAB PO SCH (09:27)
[2018-08-23] MEDS: Famotidine 20 MG TAB PO SCH ×2 (09:27→21:40)
[2018-08-23] MEDS: Varenicline Tartrate 0.5 MG TAB PO SCH ×2 (09:27→21:40)
[2018-08-23] MEDS: Enoxaparin Sodium 40 MG/0.4 ML SYRINGE SC SCH (09:28)
[2018-08-23] MEDS ORDERED: ISOVUE-370 76%-LOCM 1 ML ONE (12:00)
[2018-08-23] MEDS: HumaLOG 300 UNITS/3 ML VIAL SC PRN ×2 (12:29→17:20)
--- NOTE | 2018-08-23 12:35 | HP ---
CHIEF COMPLAINT: Shortness of breath. HISTORY OF PRESENT ILLNESS: The patient is a 53-year-old female, who was just discharged from the hospital 2 weeks ago when she was hospitalized for pneumonia and she had a thoracocentesis done, which showed transudative pleural effusion. Apparently, she went home and gradually her shortness of breath got worse. She has some cough productive with brownish phlegm. No fever. No chills. The cough is occasional. She has chronic back pain. Her primary doctor is Dr. Benedict. Surrogate decision maker is her niece, Kayleigh Akers. She denies any chest pain. She denies any headaches. She complains about some swelling in her lower extremities on and off. She feels significantly better while sitting up. She had some sleep apnea diagnosis getting in the past. PAST MEDICAL HISTORY: Positive for, 1. Chronic obstructive pulmonary disease. 2. Morbid obesity. 3. Diabetes mellitus, type 2. 4. Cervical cancer. 5. Uterine cancer. 6. History of DVT long time ago. 7. History of pneumonia, recently hospitalized. 8. Questionable CHF with normal LVEF on the last echo, but this was technically very difficult study to read according to the report. PAST SURGICAL HISTORY: 1. Appendectomy. 2. Cholecystectomy. 3. . 4. Hysterectomy. FAMILY HISTORY: Father of cardiovascular disease. Mother had septicemia. SOCIAL HISTORY: She still smokes. She used to smoke 2 packs per day. Now, she smokes 6 cigarettes per day. She was on Chantix recently. She does not use any illicit drugs. She does not drink alcohol. ALLERGIES: LATEX AND MORPHINE. MEDICATIONS: Please refer to MAR. REVIEW OF SYSTEMS: All systems were reviewed and symptoms are negative except for those, which are mentioned in HPI plus left groin fungal infection and open wound of the left ankle and chronic back pain. The patient is on oxygen p.r.n. at home. PHYSICAL EXAMINATION: VITAL SIGNS: Blood pressure is 170/78, pulse is 113, respirations 24, O2 saturation is 95% on 2 L by nasal cannula, and temperature is 98.9. GENERAL: She is very obese. Her BMI is 48.6. HEENT: Head is atraumatic and normocephalic. Eyes are PERRLA. Sclerae are nonicteric. Oral mucosa is dry. NECK: Supple, obese. LUNGS: Right base, breath sounds diminished, dull to percussion. No wheezing. HEART: S1 and S2. Tachycardic. No S3. No S4. ABDOMEN: Obese, soft, and nontender. EXTREMITIES: 1+ peripheral edema. She has about 1 cm size ulceration of the skin on the external part of the left ankle. No drainage. Looks somewhat dry. She has several ulcers on the right foot and right calf, but those are covered with scabs. Her left calf is slightly reddish. NEUROLOGICAL: She is alert and oriented x4. There is no any motor or sensory deficits present. Cranial nerves are intact. LABORATORY DATA: Labs showed white count of 10.1, hemoglobin 12.4, hematocrit 39.9, and platelet count 110,000. D-dimer is 9.6. Glucose 165. Second troponin 0.032. Lactic acid 1.5, calcium 8.5. IMAGING DATA: Electrocardiogram, personally reviewed by me showed sinus rhythm with occasional PVCs and ischemic changes. Chest x-ray personally reviewed by me showed increased interstitial markings suggestive of CHF and some bilateral pleural effusion, slightly enlarged heart. There is some perihilar edema. IMPRESSION: 1. Shortness of breath. I suspect that this is congestive heart failure exacerbation. Her echo done recently did not show that she has some congestive heart failure, but BNP is elevated at 1434. Electrolytes within normal limits. Kidney function within normal limits. We will obtain Cardiology consultation and we will see maybe the next step will be transesophageal echo to assess her cardiac function. I believe that repeating transthoracic echo is not going to help because her body habitus is a problem at this point. We will start her on Lasix. She had Lasix in the emergency room. We will monitor her electrolytes closely. I am going to obtain CT angiogram on her chest to rule out pulmonary embolism since her D-dimers are very high. 2. Chronic obstructive pulmonary disease. I do not think there is infectious component of that. We will continue Rocephin and azithromycin until we have more clear picture, but her white count is down to normal range this morning and she has been treated with antibiotics recently. 3. Diabetes mellitus, type 2. 4. Morbid obesity. 5. Cervical cancer. 6. Uterine cancer, status post hysterectomy. 7. History of deep venous thrombosis. PLAN: Plan is for admission. Condition is guarded. Extremities, the patient in a IV Hep-Lock. Diet, 2000 calories ADA, heart-healthy diet, low-salt. Lasix 40 mg IV push q.12. Cardiology consult. CT angiogram of the chest to rule out PE. Sliding scale, mild. Accu-Cheks a.c. and at bedtime. DuoNeb q.4 to 6 hours p.r.n. as needed. We are going to continue her gabapentin, glipizide, sertraline, nystatin powder, and inhaled steroids along with her opioids for the chronic back pain. We will have her on PUD prophylaxis with Pepcid and no SCDs since she has some peripheral edema. Job ID: [id number]
--- NOTE | 2018-08-23 14:15 | CON ---
DATE OF CONSULTATION: 08/23/2018 REASON FOR CONSULTATION: Shortness of breath. HISTORY OF PRESENT ILLNESS: Ms. Terrazas is an unfortunate 53-year-old woman with morbid obesity. She recently was diagnosed with pneumonia in late July. She recently presented with increased shortness of breath. She has severe central obesity and likely severe sleep apnea. During her previous hospitalization, she did have 1200 mL of bloody pleural fluid removed. She was therefore discharged and subsequently returned with similar findings. Her CT scan of her chest was performed on 08/23/2018 and did show improvement in pneumonia, although new focus of pneumonia noted in the lingual area. Her BNP was also elevated, therefore prompting this consultation. Her echo dated 08/06/2018 showed LVEF 50% 55% with mild MR, and trace TR present. This was a limited study due to body habitus. PAST MEDICAL HISTORY: Diabetes mellitus, cervical cancer, uterine cancer, DVT, pneumonia, diastolic dysfunction, cholecystectomy, , appendectomy, hysterectomy. FAMILY HISTORY: Positive for CAD. SOCIAL HISTORY: Positive tobacco use. REVIEW OF SYSTEMS: A 10-point review of systems is reviewed as above, otherwise negative. PHYSICAL EXAMINATION: VITAL SIGNS: Blood pressure 120/66, pulse 84, temperature 98. GENERAL: She is morbidly obese and appears disheveled. NEUROLOGIC: The patient is alert and oriented x3 with no focal neurologic deficits. HEENT: Sclerae without icterus. Mouth has moist mucous membranes with normal pallor. NECK: No JVD. Carotid upstroke brisk. No bruits bilaterally. LUNGS: Clear to auscultation with unlabored respirations. BACK: No scoliosis or kyphosis. CARDIAC: Regular rate and rhythm with normal S1 and S2. No S3 or S4 noted. No significant rubs, murmurs, thrills, or gallops noted throughout the precordium. PMI is not displaced. There is no parasternal heave. ABDOMEN: Soft, nontender, nondistended. No peritoneal signs present. No hepatosplenomegaly. No abnormal striae. EXTREMITIES: 2+ femoral and 2+ dorsalis pedis pulses. No cyanosis, clubbing, or edema. SKIN: No gross abnormalities. PERTINENT LABORATORY DATA: Hemoglobin 12.4, creatinine 0.7. Echo Doppler as described above. EKG not available for review. IMPRESSION: 1. Shortness of breath. 2. Morbid obesity. 3. Likely sleep apnea. 4. Hypoventilation syndrome. RECOMMENDATIONS: Mk' symptoms of shortness of breath is likely multifactorial. Elevated BNP, likely related to diastolic dysfunction. At this point, we will continue with Lasix therapy. She has diuresed and feels better. Recommendations on antibiotic therapy will be at the discretion of primary team. Of course weight loss is of utmost important and may improve the patient's symptoms. Antibiotic therapy has also been started. We will also add low-dose beta jazmin therapy. Otherwise, I have no further recommendations. Job ID: [id number]
[2018-08-23] MEDS: Furosemide 40 MG/4 ML VIAL SLOW IVP SCH (14:59)
[2018-08-23] MEDS: Cefepime 1 GM in Sodium Chloride 0.9% 100 ML IVPB SCH (21:39)
[2018-08-23] MEDS: Gabapentin 300 MG CAP PO SCH (21:40)
[2018-08-24 05:39] LABS: #Eosinphils 0.1 thou/uL (0.0-0.7); #Lymphocytes 0.7 thou/uL (1.20-3.40); #Monocytes 0.4 thou/uL (0.11-0.59); #Neutrophils 4.6 thou/uL (1.40-6.50); %Basophils 0.8 % (0.0-1.0); %Eosinophils 1.8 % (0.0-10.0); %Lymphocytes 12.6 % (21.0-51.0); %Monocytes 6.6 % (0.0-10.0); %Neutrophils 78.3 % (42.0-75.0); Hemoglobin 11.8 g/dL (12.0-16.0); Mean Corpuscular Hemoglobin 26.8 pg (27.0-31.0); Mean Corpuscular Volume 86.6 fL (78.0-98.0); Mean Platelet Volume 8.4 fL (7.4-10.4); Platelet Count 122 thou/uL (130-400); RBC Distribution Width 16.7 % (11.5-14.5); Red Blood Cell (RBC) Count 4.39 mill/uL (4.20-5.40); White Blood Cell (WBC) Count 5.9 thou/uL (4.8-10.8)
[2018-08-24 05:50] LABS: Anion Gap 11 mmol/L (10-20); BUN (Urea Nitrogen) 26 mg/dL (9.8-20.1); Calc. Creatinine Clearance 213 mL/min (70-130); Calcium 8.9 mg/dL (7.8-10.44); Carbon Dioxide 25 mmol/L (22-29); Chloride 106 mmol/L (98-107); Estimated GFR-MDRD 88; Glucose 144 mg/dL (70-105); Potassium 4.2 mmol/L (3.5-5.1); Sodium 138 mmol/L (136-145)
[2018-08-24] MEDS: Furosemide 40 MG/4 ML VIAL SLOW IVP SCH ×2 (06:24→13:04)
[2018-08-24] MEDS: Mometasone/Formoterol 120 PUFF INHALER INH SCH ×2 (07:23→18:29)
[2018-08-24] MEDS: tiZANidine HCl 4 MG TAB PO SCH (07:59)
[2018-08-24] MEDS: Varenicline Tartrate 0.5 MG TAB PO SCH ×2 (07:59→23:03)
[2018-08-24] MEDS: Enoxaparin Sodium 40 MG/0.4 ML SYRINGE SC SCH (07:59)
[2018-08-24] MEDS: Cefepime 1 GM in Sodium Chloride 0.9% 100 ML IVPB SCH ×2 (07:59→21:10)
[2018-08-24] MEDS: Famotidine 20 MG TAB PO SCH ×2 (08:00→21:15)
[2018-08-24] MEDS: HYDROcodone/Acetaminophen 10/325 mg Tablet PO SCH ×3 (08:00→21:15)
[2018-08-24] MEDS: HumaLOG 300 UNITS/3 ML VIAL SC PRN (11:28)
--- NOTE | 2018-08-24 13:10 | CON ---
DATE OF CONSULTATION: SUBJECTIVE: Ms. Terrazas has no current complaints. She states her shortness of breath is improved. Upon walking in the room, she appeared to be sleeping with the head tilted down, likely causing partial obstruction. OBJECTIVE: VITAL SIGNS: Blood pressure 123/69, pulse 65, and temperature 97.5. LUNGS: Clear to auscultation. HEART: Regular rate and rhythm. ABDOMEN: Soft, nontender, nondistended. EXTREMITIES: No edema. IMPRESSION: 1. Chronic systolic heart failure. 2. Shortness of breath. 3. Obstructive sleep apnea. 4. Morbid obesity. 5. Recent pneumonia. RECOMMENDATIONS: From my standpoint, we will continue current medical therapy. There is no good single medication for treatment of diastolic dysfunction. Her LVEF two weeks ago was normal on the echo. We would switch her Lasix to p.o. dosing. At this point, she does not require telemetry monitoring. We would change to Medical if anticipate further hospitalization. Otherwise, I have no further recommendations. We will sign off. Job ID: [id number]
--- NOTE | 2018-08-24 13:54 | PRG ---
DATE OF SERVICE: 08/24/2018 SUBJECTIVE: The patient is seen and examined at the bedside. She feels somewhat better. Her appetite is fair. Her shortness of breath improved. OBJECTIVE: VITAL SIGNS: Blood pressure is 123/69, pulse is 65, temperature is 97.5, respiratory rate is 20, and O2 saturation is 95% on room air. HEENT: Head is atraumatic and normocephalic. She is morbidly obese. Her BMI is 49.1. Her pupils are responding to light properly. Sclerae are nonicteric. Oral mucosa is moist. NECK: Supple. LUNGS: She has bilateral rales in mid lungs. No wheezing. HEART: S1 and S2. No S3. No S4. ABDOMEN: Very obese. Bowel sounds are present, sluggish. EXTREMITIES: 1 to 2+ peripheral edema on both lower extremities. Slight redness of the skin on the left nelson. NEUROLOGIC: She is alert and oriented x4. There is no any motor or sensory deficits. Cranial nerves are intact. LABORATORY DATA: Labs showed white count of 5.9, hemoglobin 11.8, hematocrit 38.0, platelet count is 122,000. Sodium of 138, potassium 4.2, chloride 106, CO2 of 25, BUN 26, creatinine 0.7, glycemia is ranging from 177 to 300, calcium is 8.9, and procalcitonin is 2.68. Blood cultures x2 negative. CT angiogram of the chest showed no PE, but some improvement in the pneumonia in the right middle lobe and new focus of pneumonia in the lingula as well as within the superior segment of the right lower lobe. She has some right pleural effusion. There is a compression fracture of T12 and T11. IMPRESSION: 1. Bilateral pneumonia. 2. Chronic obstructive pulmonary disease. 3. Diabetes mellitus type 2. 4. Congestive heart failure, diastolic dysfunction. 5. Cervical cancer. 6. Uterine cancer, status post hysterectomy. 7. Morbid obesity. 8. History of deep venous thrombosis. PLAN: Plan is to continue cefepime. Continue DuoNeb. Continue inhaled steroids. Continue DVT prophylaxis with Lovenox and PUD prophylaxis with Pepcid. We will continue sliding scale for diabetes. Job ID: [id number]
[2018-08-24] MEDS ORDERED: Bisacodyl 5 MG TAB PO SCH (21:00)
[2018-08-24] MEDS: Gabapentin 300 MG CAP PO SCH (21:15)
[2018-08-25] MEDS: Furosemide 40 MG/4 ML VIAL SLOW IVP SCH ×2 (06:20→16:30)
[2018-08-25] MEDS: Mometasone/Formoterol 120 PUFF INHALER INH SCH ×2 (07:08→19:26)
[2018-08-25] MEDS: tiZANidine HCl 4 MG TAB PO SCH (08:22)
[2018-08-25] MEDS: Famotidine 20 MG TAB PO SCH ×2 (08:23→21:31)
[2018-08-25] MEDS: HYDROcodone/Acetaminophen 10/325 mg Tablet PO SCH (08:24)
[2018-08-25] MEDS: Enoxaparin Sodium 40 MG/0.4 ML SYRINGE SC SCH (08:27)
[2018-08-25] MEDS: Cefepime 1 GM in Sodium Chloride 0.9% 100 ML IVPB SCH ×2 (08:28→21:30)
[2018-08-25] MEDS ORDERED: Lidocaine Patch Removal 1 EACH TOP SCH (12:30)
[2018-08-25] MEDS: HumaLOG 300 UNITS/3 ML VIAL SC PRN ×2 (12:41→18:20)
[2018-08-25] MEDS: HYDROcodone/Acetaminophen 10/325 mg Tablet PO PRN ×2 (12:46→17:07)
--- NOTE | 2018-08-25 14:23 | PRG ---
DATE OF SERVICE: 08/25/2018 SUBJECTIVE: The patient is seen and examined at the bedside and she complains about the back pain. Her breathing is improved. Her appetite is good. OBJECTIVE: VITAL SIGNS: Blood pressure is 149/69, pulse is 86, temperature is 97.2, respiratory rate is 20, and O2 saturation is 96% on room air. HEENT: Head is atraumatic and normocephalic. Eyes are PERRLA. Sclerae nonicteric. Oral mucosa is moist. NECK: Supple. Obese. LUNGS: Breath sounds diminished at both bases with bilateral rales present in both bases. HEART: S1 and S2 distant. No S3. No S4. ABDOMEN: Very obese. Bowel sounds are present. EXTREMITIES: No clubbing, cyanosis, or edema. There is some redness to the left lower extremity below the knee area. There is no any drainage from the skin or any open skin. NEUROLOGICAL EXAMINATION: She is alert and oriented x4. There is no any motor deficits. MUSCULOSKELETAL: There is very significant pain when palpating the lower thoracic spine. LABORATORY DATA: Labs showed white count of 5.9, hemoglobin 11.8, hematocrit 38.0, platelet count is 122,000. Sodium 138, potassium 4.2, chloride 106, CO2 of 25, BUN 26, creatinine 0.7. Glycemia is ranging from 129 to 215. Microbiology, two blood cultures came back negative. IMPRESSION: 1. Bilateral pneumonia, on cefepime and DuoNeb and inhaled steroids, improving. 2. Congestive heart failure, diastolic dysfunction, on diuretics. Good urine output. We will continue. 3. Chronic obstructive pulmonary disease, on DuoNebs and inhaled steroids. 4. Diabetes mellitus type 2, relatively well controlled. 5. Cervical cancer. 6. Uterine cancer, status post hysterectomy. 7. T11 and T12 fracture, most likely osteoporotic since the patient was exposed to steroids many times in her lifetime. She is going to get a new pain management doctor and has established with one but now he works at the [place] and she needs to find a new one; she is promising she will do. I will start her on Lidoderm patch and we will continue her Lasix. 8. Constipation she complains about, will be treated with Movantik since most likely she will be on opioids chronically and she will have chronic constipation. We will continue her DVT and PUD prophylaxis, and we will check her vitamin D level. Job ID: [id number]
[2018-08-25] MEDS: Varenicline Tartrate 0.5 MG TAB PO SCH ×2 (14:48→23:37)
[2018-08-25] MEDS: Gabapentin 300 MG CAP PO SCH (21:30)
[2018-08-25] MEDS: SMX/TMP 800-160mg/20 ML UDCUP PO SCH (23:36)
[2018-08-26] MEDS: HYDROcodone/Acetaminophen 10/325 mg Tablet PO PRN ×5 (02:54→21:32)
[2018-08-26 06:24] LABS: #Basophils 0.1 thou/uL (0.0-0.2); #Eosinphils 0.2 thou/uL (0.0-0.7); #Lymphocytes 0.9 thou/uL (1.20-3.40); #Monocytes 0.3 thou/uL (0.11-0.59); #Neutrophils 2.1 thou/uL (1.40-6.50); %Basophils 1.5 % (0.0-1.0); %Eosinophils 5.6 % (0.0-10.0); %Lymphocytes 26.2 % (21.0-51.0); %Monocytes 7.3 % (0.0-10.0); %Neutrophils 59.5 % (42.0-75.0); Hemoglobin 11.8 g/dL (12.0-16.0); Mean Corpuscular Hemoglobin 24.7 pg (27.0-31.0); Mean Corpuscular Volume 85.3 fL (78.0-98.0); Platelet Count 147 thou/uL (130-400); RBC Distribution Width 15.7 % (11.5-14.5); Red Blood Cell (RBC) Count 4.78 mill/uL (4.20-5.40); White Blood Cell (WBC) Count 3.5 thou/uL (4.8-10.8)
[2018-08-26] MEDS: Furosemide 40 MG/4 ML VIAL SLOW IVP SCH ×2 (06:28→14:35)
[2018-08-26 06:32] LABS: Anion Gap 12 mmol/L (10-20); BUN (Urea Nitrogen) 29 mg/dL (9.8-20.1); Calc. Creatinine Clearance 221 mL/min (70-130); Calcium 9.1 mg/dL (7.8-10.44); Carbon Dioxide 30 mmol/L (22-29); Chloride 103 mmol/L (98-107); Estimated GFR-MDRD Greater than 90; Glucose 101 mg/dL (70-105); Potassium 3.9 mmol/L (3.5-5.1); Sodium 141 mmol/L (136-145)
[2018-08-26] MEDS ORDERED: Bisacodyl 5 MG TAB PO PRN (09:00)
[2018-08-26] MEDS: Varenicline Tartrate 0.5 MG TAB PO SCH ×2 (09:26→22:18)
[2018-08-26] MEDS: tiZANidine HCl 4 MG TAB PO SCH (09:27)
[2018-08-26] MEDS: Cefepime 1 GM in Sodium Chloride 0.9% 100 ML IVPB SCH ×2 (09:28→21:29)
[2018-08-26] MEDS: Enoxaparin Sodium 40 MG/0.4 ML SYRINGE SC SCH (09:28)
[2018-08-26] MEDS: Famotidine 20 MG TAB PO SCH ×2 (09:28→21:30)
[2018-08-26] MEDS: Lidocaine 5% Patch TD SCH (09:29)
[2018-08-26] MEDS: SMX/TMP 800-160mg/20 ML UDCUP PO SCH ×2 (09:42→21:31)
[2018-08-26] MEDS: Mometasone/Formoterol 120 PUFF INHALER INH SCH ×2 (10:28→19:05)
--- NOTE | 2018-08-26 11:24 | PQF ---
CLINICAL DOCUMENTATION IMPROVEMENT CLARIFICATION FORM: ICD-10 Updated PLEASE DO AN ADDENDUM TO THE PROGRESS NOTE WITH ANY DOCUMENTATION UPDATES OR ADDITIONS AND CARRY THROUGH TO DC SUMMARY. THANK YOU. DATE: 08/27/18 ATTN: DR. RODRIGUEZ Please exercise your independent, professional judgment in responding to the clarification form. Clinical indicators are provided on the bottom of this form for your review Please check appropriate box(s): [ ] Aspiration Pneumonia [ ] Aspiration Bronchitis [ ] Empirically treating Gram Negative Pneumonia [ ] Empirically treating Anaerobic Pneumonia [ ] Pneumonia secondary to (specify organism / underlying disease) [x ] Simple Pneumonia (community acquired - nosocomial) [ ] Bronchopneumonia [ ] Pneumonia of unknown etiology [ ] Other diagnosis [ ] Unable to determine In addition, please specify: Present on Admission (POA): [ x ] Yes [ ] No [ ] Unable to determine For continuity of documentation, please document condition throughout progress notes and discharge summary. Thank You. CLINICAL INDICATORS - SIGNS / SYMPTOMS / LABS PROGRESS NOTE 08/25 : "BILATERAL PNEUMONIA" 08/22: WBC 16.2 BANDS 20 RISKS: COPD TREATMENT: DUONEBS (08/23-PRESENT) IV MAXIPIME (08/23-PRESENT) BACTRIM 08/25-PRESENT) SPUTUM CULTURES (This form is maintained as a part of the permanent medical record) 2014 [employer]. All Rights Reserved [email or web address] Office: [phone] [facility]
--- NOTE | 2018-08-26 12:01 | PDOC.PN ---
- Subjective Encounter Start Date: 08/26/18 Encounter Start Time: 11:59 Reports she continues to have pain. Says she needs [place] at home because that is what she is getting here. T#3 and other meds have not been effective. Her PCP (Marichuy) will not give her opioids. She had a pain management physician, but [facility]. Says she is not able to get up and around much at home now. Says she could three weeks ago before the back pain started. Says she continues to smoke 1 PPD. - Objective Resuscitation Status - Order Detail: 08/23/18 07:59 Resuscitation Status Routine Resuscitation Status: FULL: Full Resuscitation Vital Signs & Weight: Vital Signs (12 hours) Temp Pulse Resp BP BP Pulse Ox 08/26/18 10:28 68 12 08/26/18 10:24 68 14 08/26/18 07:45 97.6 F 69 20 143/68 H 96 08/26/18 04:00 97.9 F 70 20 142/63 H 92 L 08/26/18 00:00 97.6 F 87 20 146/65 H 94 L Weight Admit Weight 317 lb 9.6 oz Weight 322 lb 6.4 oz I&O: 08/25/18 08/26/18 08/27/18 06:59 06:59 06:59 Intake Total 1350 1680 Output Total 3000 2700 Balance -1650 -1020 Result Diagrams: 08/26/18 05:38 08/26/18 05:38 Additional Labs: Accuchecks 08/26/18 08/26/18 08/25/18 10:41 05:45 20:41 POC Glucose 200 H 156 H 133 H 08/25/18 17:02 POC Glucose 186 H Phys Exam - Physical Examination Constitutional: NAD Morbid obesity. Stays slumped forward. Respiratory: no wheezing, no rales, no rhonchi Diminished diffusely. Cardiovascular: RRR, no significant murmur Difficult to auscultate. Gastrointestinal: soft, non-tender, no distention Musculoskeletal: no edema Chronic edema LLE. Neurological: non-focal Deviation from normal: General discontent. Acts frustrated that she cannot get [place]. Tearful at times. Generally flat. Dx/Plan (1) Acute and chronic respiratory failure Code(s): J96.20 - ACUTE AND CHR RESP FAILURE, UNSP W HYPOXIA OR HYPERCAPNIA Status: Acute (2) Pneumonia Code(s): J18.9 - PNEUMONIA, UNSPECIFIED ORGANISM Status: Acute (3) COPD exacerbation Code(s): J44.1 - CHRONIC OBSTRUCTIVE PULMONARY DISEASE W (ACUTE) EXACERBATION Status: Acute (4) Compression fracture of T11 vertebra Code(s): S22.080A - WEDGE COMPRESSION FRACTURE OF T11-T12 VERTEBRA, INIT Status: Acute (5) Compression fracture of T12 vertebra Code(s): S22.080A - WEDGE COMPRESSION FRACTURE OF T11-T12 VERTEBRA, INIT Status: Acute (6) Leukopenia Code(s): D72.819 - DECREASED WHITE BLOOD CELL COUNT, UNSPECIFIED Status: Acute (7) Pleural effusion, right Code(s): J90 - PLEURAL EFFUSION, NOT ELSEWHERE CLASSIFIED Status: Acute (8) DM type 2 (diabetes mellitus, type 2) Status: Chronic Qualifiers: Diabetes mellitus terminal computer operator insulin use: without terminal computer operator use Diabetes mellitus complication status: without complication Qualified Code(s): E11.9 - Type 2 diabetes mellitus without complications (9) HTN (hypertension) Code(s): I10 - ESSENTIAL (PRIMARY) HYPERTENSION Status: Chronic Qualifiers: Hypertension type: essential hypertension Qualified Code(s): I10 - Essential (primary) hypertension (10) Morbid obesity with BMI of 45.0-49.9, adult Code(s): E66.01 - MORBID (SEVERE) OBESITY DUE TO EXCESS CALORIES; Z68.42 - BODY MASS INDEX (BMI) 45.0-49.9, ADULT Status: Chronic (11) Vitamin D deficiency Code(s): E55.9 - VITAMIN D DEFICIENCY, UNSPECIFIED Status: Acute - Plan * Appears to be stable from the pneumonia. She failed a course of Levaquin and now has some leukopenia. Will consult ID to ensure appropriate po treatment at this point. Her continued smoking is not helpful. * Her compression fractures are limiting her ability to ambulate. She had a pain management doc. I will consult pain management to see if there is an interventional option. I cannot give her Hollywood. * Severe Vitamin D deficiency. Start oral vitamin D, follow up with PCP. * Needs to quit smoking, lose weight and increase mobility. * Discussed with CM. She is not likely to get approval for any rehab or HH through her insurance. * Can DC when oral meds established.
[2018-08-26] MEDS: HumaLOG 300 UNITS/3 ML VIAL SC PRN (12:04)
[2018-08-26] MEDS: Gabapentin 300 MG CAP PO SCH (21:30)
[2018-08-26] MEDS: Calcium Carbonate 600 MG TAB PO SCH (21:30)
[2018-08-27] MEDS: HYDROcodone/Acetaminophen 10/325 mg Tablet PO PRN ×5 (05:13→21:01)
[2018-08-27 06:31] LABS: #Eosinphils 0.2 thou/uL (0.0-0.7); #Lymphocytes 0.9 thou/uL (1.20-3.40); #Monocytes 0.5 thou/uL (0.11-0.59); #Neutrophils 2.3 thou/uL (1.40-6.50); %Basophils 0.4 % (0.0-1.0); %Eosinophils 4.5 % (0.0-10.0); %Lymphocytes 22.9 % (21.0-51.0); %Monocytes 12.4 % (0.0-10.0); %Neutrophils 59.8 % (42.0-75.0); Hemoglobin 11.8 g/dL (12.0-16.0); Mean Corpuscular HGB CONC 29.9 g/dL (32.0-36.0); Mean Corpuscular Hemoglobin 25.5 pg (27.0-31.0); Mean Corpuscular Volume 85.3 fL (78.0-98.0); Mean Platelet Volume 8.3 fL (7.4-10.4); Platelet Count 140 thou/uL (130-400); RBC Distribution Width 15.6 % (11.5-14.5); Red Blood Cell (RBC) Count 4.61 mill/uL (4.20-5.40); White Blood Cell (WBC) Count 3.8 thou/uL (4.8-10.8)
[2018-08-27] MEDS: Furosemide 40 MG/4 ML VIAL SLOW IVP SCH ×2 (06:32→13:57)
[2018-08-27 06:48] LABS: Anion Gap 12 mmol/L (10-20); BUN (Urea Nitrogen) 28 mg/dL (9.8-20.1); Calc. Creatinine Clearance 216 mL/min (70-130); Calcium 9.3 mg/dL (7.8-10.44); Carbon Dioxide 32 mmol/L (22-29); Chloride 102 mmol/L (98-107); Estimated GFR-MDRD 88; Glucose 100 mg/dL (70-105); Potassium 4.3 mmol/L (3.5-5.1); Sodium 142 mmol/L (136-145)
[2018-08-27] MEDS: Mometasone/Formoterol 120 PUFF INHALER INH SCH ×2 (07:29→19:08)
[2018-08-27] MEDS: Enoxaparin Sodium 40 MG/0.4 ML SYRINGE SC SCH (09:17)
[2018-08-27] MEDS: Lidocaine 5% Patch TD SCH (09:18)
[2018-08-27] MEDS: Calcium Carbonate 600 MG TAB PO SCH ×2 (09:18→20:32)
[2018-08-27] MEDS: SMX/TMP 800-160mg/20 ML UDCUP PO SCH (09:18)
[2018-08-27] MEDS: Varenicline Tartrate 0.5 MG TAB PO SCH ×2 (09:21→21:20)
[2018-08-27] MEDS: tiZANidine HCl 4 MG TAB PO SCH (09:22)
[2018-08-27] MEDS: Famotidine 20 MG TAB PO SCH ×3 (09:22→20:33)
[2018-08-27] MEDS: Cefepime 1 GM in Sodium Chloride 0.9% 100 ML IVPB SCH (09:23)
--- NOTE | 2018-08-27 10:32 | CON ---
DATE OF CONSULTATION: 08/26/2018 CHIEF COMPLAINT: Chronic bilateral low back pain, thoracic pain x1 month. HISTORY OF PRESENT ILLNESS: The patient is a 53-year-old female, who was admitted on August 22, for shortness of breath and productive cough. Apparently, she had been hospitalized 2 weeks prior to this admission for pneumonia and pleural effusion , for which she underwent thoracentesis at that time. On this most recent admission, she is being diagnosed with bilateral pneumonia and is currently on antibiotics, waiting for Infectious Disease consult for appropriate antibiotic therapy prior to discharge home. She has a history of congestive heart failure; COPD; diabetes mellitus, type 2 as well as a history of cervical cancer and uterine cancer, status post hysterectomy. Ms. Terrazas reports a history of some chronic bilateral low back pain for several years on and off, which she has been managed by Dr. Ruby with narcotics in the past, he is a pain management physician no longer in practice. She reports being on hydrocodone 10/325 mg tablets 1 p.o. t.i.d., for the past 2 to 3 years with effective management of her chronic low back pain. She has not been able to get the hydrocodone recently and apparently has been getting some Tylenol No. 3 from her primary care provider as Dr. Ruby is no longer in practice. Since she has been hospitalized, her bilateral low back pain has gotten worse, and she feels that it is not appropriately managed with the current medications. She reports a new onset of thoracic pain, that started approximately 1 month ago and has been persistent since that time. The pain is constant, sharp, stabbing, localized to the thoracic spine with no radicular symptoms associated with the pain. The pain is rated at 10/10 with activity; however, it seems to improve some with rest and lying down. She is currently taking hydrocodone with management of her pain, however, still limited with mobility and functional activities. She has been up ambulating with physical therapy for short distances and appears to be tolerating that. Per the patient , a TLSO brace has been attempted; however, due to her body habitus and obesity, she is unable to tolerate the brace for stability. The patient also reports some left lower extremity tenderness with redness to the lower extremity, which she reports is being managed for infection and cellulitis in the past on this left leg. CT of the chest on this admission indicates a wedge compression deformity seen at T12 as well as T11. There is no other imaging to review in regard to her thoracic or lumbar spine. PAST MEDICAL HISTORY: 1. COPD. 2. Morbid obesity. 3. Cervical cancer. 4. Uterine cancer. 5. Diabetes mellitus, type 2. 6. History of DVT. 7. Pneumonia. 8. Congestive heart failure with diastolic dysfunction. 9. Chronic back pain. PAST SURGICAL HISTORY: Includes: 1. Appendectomy. 2. Cholecystectomy. 3. x2. 4. Hysterectomy. 5. Hernia repair. ALLERGIES: INCLUDES: 1. LASIX. 2. MORPHINE. FAMILY HISTORY: Positive for cardiovascular disease in her father. Her mother of septicemia. SOCIAL HISTORY: The patient reports living alone, reports she is functional with activities of daily living and independent. She continues to smoke cigarettes and has for the past several years, denies any drug use or alcohol use. MEDICATIONS: See MAR. All reviewed. REVIEW OF SYSTEMS: All systems are reviewed and negative except for pertinent findings discussed above in the history of present illness. PHYSICAL EXAMINATION: VITAL SIGNS: Stable. Blood pressure is 131/63, temperature is 97, heart rate 68, respirations 12. The patient is on 2 L of oxygen per nasal cannula with O2 saturations of 95%. GENERAL: The patient is morbidly obese. She is sitting up in her bed eating, alert and oriented x3, cooperative and conversational. She is moving all extremities against gravity with no acute distress, appears to be comfortable. SKIN: She appears to have some old healing scabs in lower extremities bilaterally with 1+ edema. Left lower extremity has noted some redness, warm to touch. Homans' is negative. HEENT: Head is atraumatic and normocephalic. ABDOMEN: Obese, soft, and nontender. MUSCULOSKELETAL: Cervical spine with active, full range of motion without pain. No cervical tenderness. Bilateral upper extremity strength is 5/5. Triceps reflex is +2 bilaterally. Thoracic spine with vertebral body pain with palpation, moderate in the T11 and T12 region, limitation to thoracic range of motion secondary to body habitus as well as pain. Lumbar spine; bilateral lower lumbar tenderness in the facet region as well as bilateral tenderness in SI joints. MAI's is deferred. Bilateral lower extremity strength is 5/5 with negative straight leg raise bilaterally. Patellar reflex is 1/4 bilaterally. Absent bilateral Achilles. Gait is not assessed. NEUROLOGIC: The patient is alert and oriented x3. She is appropriate and conversational. No clonus. ASSESSMENT AND PLAN: 1. Vertebral compression fractures, new onset of thoracic pain a month ago with recent CT of the chest indicating vertebral compression fractures at T11 and T12 , acuity is indeterminate by the CT scan. Recommendation made for thoracic MRI to further evaluate the acuity of the fractures. Recommendations will be made for possible kyphoplasty after review of imaging. The patient is currently not a candidate for any interventional procedures due to pneumonia, currently being treated with antibiotics in infectious state. Recommendation to follow up in our clinic on an outpatient basis after imaging for further consideration of kyphoplasty at that time. 2. Chronic low back pain, which has previously been managed by Pain Management in the past, who is no longer in practice. Recommendation for lumbar MRI to further evaluate her lumbar spine. Further recommendations can be made for possible interventional procedures following imaging. 3. Pneumonia. 4. Congestive heart failure. 5. Chronic obstructive pulmonary disease. 6. Diabetes mellitus. In regard to her discharge and pain management, imaging studies can be done on an outpatient basis as this patient is not a candidate for interventional procedures at this time while inpatient secondary to infectious state. She may follow up in our clinic on an outpatient basis for further recommendations after imaging is being completed. No further recommendations to offer at this time from Pain Management. Thank you for this consult. Job ID: [id number] MTDShivani
[2018-08-27] MEDS: HumaLOG 300 UNITS/3 ML VIAL SC PRN ×2 (12:22→21:22)
--- NOTE | 2018-08-27 18:23 | PDOC.PN ---
- Subjective Encounter Start Date: 08/27/18 Encounter Start Time: 13:30 Still only concerned about getting [place]. Believes Dr. Benedict might be willing to Rx it if I talked with him. - Objective Resuscitation Status - Order Detail: 08/23/18 07:59 Resuscitation Status Routine Resuscitation Status: FULL: Full Resuscitation Vital Signs & Weight: Vital Signs (12 hours) Temp Pulse Pulse Pulse Resp BP BP 08/27/18 17:12 98.3 F 70 18 08/27/18 14:46 72 16 08/27/18 12:24 98.4 F 65 18 08/27/18 10:55 70 88 131/69 139/65 08/27/18 10:31 63 13 08/27/18 07:45 97.9 F 80 18 08/27/18 07:29 75 16 08/27/18 07:24 75 16 BP Pulse Ox 08/27/18 17:12 158/69 H 100 08/27/18 14:46 08/27/18 12:24 128/69 94 L 08/27/18 10:55 08/27/18 10:31 08/27/18 07:45 153/67 H 95 08/27/18 07:29 08/27/18 07:24 Weight Admit Weight 317 lb 9.6 oz Weight 324 lb I&O: 08/26/18 08/27/18 08/28/18 06:59 06:59 06:59 Intake Total 1680 2060 Output Total 2700 3055 Balance -1020 -995 Result Diagrams: 08/27/18 06:16 08/27/18 06:16 Additional Labs: Accuchecks 08/27/18 08/27/18 08/27/18 17:13 11:29 05:37 POC Glucose 107 207 H 117 H 08/26/18 20:18 POC Glucose 158 H Phys Exam - Physical Examination Constitutional: NAD Respiratory: no wheezing, no rales, no rhonchi Cardiovascular: RRR, no significant murmur, no rub Gastrointestinal: soft, non-tender, no distention, positive bowel sounds Musculoskeletal: no edema Left LE erythema. Looks chronic. Psychiatric: normal affect Dx/Plan (1) Acute and chronic respiratory failure Code(s): J96.20 - ACUTE AND CHR RESP FAILURE, UNSP W HYPOXIA OR HYPERCAPNIA Status: Acute (2) Pneumonia Code(s): J18.9 - PNEUMONIA, UNSPECIFIED ORGANISM Status: Acute (3) COPD exacerbation Code(s): J44.1 - CHRONIC OBSTRUCTIVE PULMONARY DISEASE W (ACUTE) EXACERBATION Status: Acute (4) Compression fracture of T11 vertebra Code(s): S22.080A - WEDGE COMPRESSION FRACTURE OF T11-T12 VERTEBRA, INIT Status: Acute (5) Compression fracture of T12 vertebra Code(s): S22.080A - WEDGE COMPRESSION FRACTURE OF T11-T12 VERTEBRA, INIT Status: Acute (6) Leukopenia Code(s): D72.819 - DECREASED WHITE BLOOD CELL COUNT, UNSPECIFIED Status: Acute (7) Pleural effusion, right Code(s): J90 - PLEURAL EFFUSION, NOT ELSEWHERE CLASSIFIED Status: Acute (8) DM type 2 (diabetes mellitus, type 2) Status: Chronic Qualifiers: Diabetes mellitus prison insulin use: without extermination inspector use Diabetes mellitus complication status: without complication Qualified Code(s): E11.9 - Type 2 diabetes mellitus without complications (9) HTN (hypertension) Code(s): I10 - ESSENTIAL (PRIMARY) HYPERTENSION Status: Chronic Qualifiers: Hypertension type: essential hypertension Qualified Code(s): I10 - Essential (primary) hypertension (10) Morbid obesity with BMI of 45.0-49.9, adult Code(s): E66.01 - MORBID (SEVERE) OBESITY DUE TO EXCESS CALORIES; Z68.42 - BODY MASS INDEX (BMI) 45.0-49.9, ADULT Status: Chronic (11) Vitamin D deficiency Code(s): E55.9 - VITAMIN D DEFICIENCY, UNSPECIFIED Status: Acute - Plan * Await input from Dr. Kat. * I will not give [place]. * She says she is not interested in vertebroplasty. * I will try to talk to Dr. Benedict, although I doubt he will be willing to Rx it either. * Will DC when she has abx regimen clarified and pain meds clarified.
[2018-08-27] MEDS: Gabapentin 300 MG CAP PO SCH (20:33)
[2018-08-28] MEDS: Cephalexin 250 MG CAP PO SCH ×3 (00:13→05:41)
[2018-08-28] MEDS ORDERED: HYDROcodone/Acetaminophen 10/325 mg Tablet ONE (01:12)
[2018-08-28] MEDS: HYDROcodone/Acetaminophen 10/325 mg Tablet PO PRN ×3 (01:16→13:39)
[2018-08-28 05:02] VITALS: BMI 47.0
[2018-08-28] MEDS: Mometasone/Formoterol 120 PUFF INHALER INH SCH (07:54)
[2018-08-28] MEDS: tiZANidine HCl 4 MG TAB PO SCH (08:27)
[2018-08-28] MEDS: Enoxaparin Sodium 40 MG/0.4 ML SYRINGE SC SCH (08:29)
[2018-08-28] MEDS: Lidocaine 5% Patch TD SCH (08:30)
[2018-08-28] MEDS: Famotidine 20 MG TAB PO SCH (08:32)
[2018-08-28] MEDS: Varenicline Tartrate 0.5 MG TAB PO SCH (09:31)
--- NOTE | 2018-08-28 10:55 | CON ---
DATE OF CONSULTATION: 08/27/2018 REASON FOR CONSULTATION: Concern regarding progress of previously diagnosed respiratory tract infection. HISTORY OF PRESENT ILLNESS: A 53-year-old patient with history of morbid obesity, type 2 diabetes, cervical and uterine cancer in remission, and prior deep vein thrombosis, who recently was admitted and discharged with a diagnosis of COPD exacerbation, pneumonia with parapneumonic effusion, and acute on chronic diastolic heart failure. During that hospital stay, she had negative blood cultures and acid-fast smear was negative with pending cultures. The pleural fluid cultures were negative. The pleural fluid white cell count was 252 with pH of 7.22, total protein of 1.4, and LDH of 89. So, the fluid was felt to represent a transudative effusion. The patient was released on the following medications; levofloxacin for 5 days, Chantix, Zoloft, methocarbamol, metformin, ibuprofen, glipizide, gabapentin, and inhalers. After discharge, the patient developed worsening shortness of breath with persistence of cough with brownish sputum production. No headaches. No visual symptoms. No sore throat, odynophagia, or dysphagia. No dental pain or back pain. No hemoptysis. No abdominal pain. No dysuria or diarrhea. No joint symptoms other than osteoarthrosis. PAST MEDICAL HISTORY: COPD, still actively smoking, morbid obesity, type 2 diabetes, cervical and uterine cancer in remission after treatment, prior deep vein thrombosis, pneumonia, and CHF with normal LV function. PAST SURGICAL HISTORY: Appendectomy, cholecystectomy, , and hysterectomy. FAMILY HISTORY: Coronary artery disease. SOCIAL HISTORY: Still smoking. Lives in the area. Disabled. No alcoholic beverage use or other drug use. ALLERGIES: LATEX AND MORPHINE. MEDICATIONS: Currently, she is receiving; 1. Tylenol. 2. Hydrocodone. 3. DuoNeb. 4. Dulcolax. 5. Caltrate. 6. Keflex. 7. Dextrose. 8. Lovenox. 9. Pepcid. 10. Glucotrol. 11. Ondansetron. 12. Zoloft. 13. Tizanidine. 14. Chantix. PHYSICAL EXAMINATION: VITAL SIGNS: T-max 98.4, blood pressure 180/75, pulse 65, respirations 20, and O2 saturation 96. SKIN: Remarkable for some laceration of intertriginous areas below the abdominal fold. In the left medial thigh, there is a tender erythematous patch with nodular consistency. This is quite tender to touch. This seems to extend towards the area in the left leg, which is also erythematous, but not as tender. There is evidence of lymphedema and venous insufficiency. Some shallow ulcerations, which are hyperpigmented in lower extremities in both right and left side. Pulses are diminished in dorsalis pedis. No edema is noted, maybe just lymphedema. She has onychodystrophy in all toenails. She has a peripheral IV access and is voiding spontaneously. No lymphadenopathy. HEENT: Ocular movements conjugate. Oral cavity with numerous missing teeth. Remainder of the oral exam showed severely decayed. NECK: Supple. No jugular vein distention. No carotid bruits. LUNGS: Symmetric air entry. No crackles or wheezing. Diminished breath sounds. HEART: S1 and S2 without murmurs. Regular rate. No S3. ABDOMEN: With very prominent panniculus. No ascites. No tenderness. No bladder distention. She is able to move extremities equally, but is diffusely weak. NEUROLOGIC: She is awake and oriented. Follows commands. LABORATORY DATA: White cell count was 16.2 now it is 3.8, hemoglobin 11.8, MCV 85, platelets 140, and 59% neutrophils and 22% lymphocytes. Sodium 142 and creatinine 0.7. Liver profile was normal except for alkaline phosphatase 205 and albumin 3.1. Microbiology with a sputum with gram-negative rods. Two sets of blood culture, no growth in 5 days. The patient had a CT of chest angiogram with no pulmonary embolism. There is a consolidation in the right middle lobe and lingula and patchy airspace opacities in the superior segment of right lower lobe, and persistent moderate right pleural effusion. Vascular ultrasound showed no deep vein thrombosis. ASSESSMENT: Type 2 diabetes with morbid obesity, persistence of smoking habit, dyspnea, pulmonary infiltrates with recent treatment for community-acquired pneumonia with levofloxacin. Erythematous changes in the skin of the left thigh and leg consistent with cellulitis versus superficial thrombophlebitis. DISCUSSION: Differential diagnosis includes residual radiological changes associated with the recent case of presumed community-acquired infectious pneumonia versus atypical pathogens such as mycobacterial or fungal pathogens versus malignancy, for example, alveolar cell carcinoma versus changes associated with diastolic CHF. Thromboembolism has been ruled out. At this point, the management from here on will include treatment for presumptive cellulitis in the left lower extremity. Continue monitoring of the radiological changes noted to assure resolution. Monitor AFB cultures. Consider further opportunistic pathogen workup depending on progress of the chest x-ray findings. It seems like she has completed treatment for a community-acquired process. Further sputums will be submitted for AFB and fungal cultures. Malignancies are going to be a concern also in this patient in view of her exposure to tobacco in the past many years. Job ID: [id number] MTDD
[2018-08-28 12:25] VITALS: BP 150/61; TEMP 97.8
--- NOTE | 2018-08-29 00:43 | DIS ---
DATE OF ADMISSION: 08/22/2018 DATE OF DISCHARGE: 08/28/2018 DISCHARGE DIAGNOSES: 1. Acute and chronic respiratory failure with hypoxia. 2. Pneumonia. 3. Chronic obstructive pulmonary disease exacerbation. 4. Compression fracture of T11 and T12. 5. Mild leukopenia. 6. Mild right pleural effusion. 7. Diabetes mellitus. 8. Hypertension. 9. Morbid obesity. 10. Vitamin D deficiency. 11. Tobacco abuse. HISTORY OF PRESENT ILLNESS: This patient is a 53-year-old female, who initially presented to the emergency department with a complaint of shortness of breath. The patient had previously been admitted here and diagnosed with pneumonia and was discharged two weeks prior. She had a thoracentesis done showing transudative pleural effusion. She came back with some gradual worsening of her shortness of breath. She had some cough, was slightly productive. The patient is continuing to smoke what sounds like at least a pack of cigarettes per day, although her amount varied depending on the interviewer. She had previously smoked 2 packs of cigarettes per day. The patient's exam was notable for mild tachycardia. She was on nasal cannula oxygen. She was very obese with a BMI of 48.6. She had trace peripheral edema. She had some small superficial skin ulcerated areas with some scabbing and slight erythema of the left calf. Chest x-ray showed some interstitial markings concerning for CHF or persistent pneumonia. HOSPITAL COURSE: The patient was admitted to the hospital. With respect to her shortness of breath, the patient did undergo a CT angiogram which showed no pulmonary emboli, showed slight improvement of her pneumonia in the right middle lobe. However, evidence of persistent pneumonia was present. Stable, moderate right and new small left pleural effusion and worsening wedge compression fractures at T11 and T12. The patient also had a vascular ultrasound, which showed no evidence of deep venous thrombosis. She was started on cefepime for presumptive persistent pneumonia, potentially hospital acquired. She was maintained on nebulizer treatments and her breathing and oxygenation improved significantly. Dr. Kat was ultimately consulted given the concern for failed resolution of the pneumonia. He felt this could have simply been residual findings on imaging versus an atypical pathogen versus an alveolar carcinoma. He felt that there was no further treatment indicated for any pulmonary infection. He ordered sputums for AFB and fungal cultures. He recommended treatment for cellulitis with oral antibiotics. The patient's left lower extremity did have some erythema that initially appeared to be more chronic in nature and she did remain on the cefepime throughout. DVT was ruled out with Doppler. She initially had some leukocytosis with a white count of 16, which ultimately dropped to 3.5 and 3.8. She initially had 20% bands, but these resolved on repeat by the second day. She remained completely afebrile throughout her hospitalization. Ultimately based on the recommendations of ID, once the patient was felt to be otherwise stable for discharge, she was given oral Keflex to continue treatment for potential cellulitis of the left lower extremity. The patient continued to report pain related to her vertebral compression fractures. The patient had previously been attached to a pain management physician, however, that physician apparently moved to the [place] and was no longer available to her. She was receiving Corbin in the hospital and was adamant that she needed Corbin at home and that tramadol and Tylenol No. 3 would not be sufficient. She was seen in consultation by Pain Management, who recommended the patient have an outpatient MRI and follow up in their clinic for further treatment and consideration of vertebroplasty. The patient was very hesitant even want to consider vertebroplasty. I explained to her that I would not be able to prescribe her Corbin at discharge , but would potentially give her short course of Tylenol No. 3. She was not happy with that plan and I attempted to call Dr. Benedict's office to see if he would be willing to prescribe her medications. However, she indicated that he had refused to give it to her in the past. She initially thought he might change his mind if I spoke with him. I was unable to get a hold of him at his office in spite of several attempts and ultimately, the patient told me not to bother because he would not prescribe it anyway. The patient had stated several times that if she did not get Corbin, that she would simply come back to the hospital. She was also given a Lidoderm patch in the hospital that was prescribed at discharge, however, she will have to get the [id number]-[id number] lower dose because it would not be covered under her Medicaid. COPD exacerbations felt to be an important parcel to her shortness of breath and pneumonia. She continued on nebulizer treatments throughout her stay. The patient had vitamin D levels checked given the compression fractures of her lumbar spine. Her vitamin D levels were significantly low with 25 dihydroxy vitamin D level of 6.2. She was subsequently started on oral vitamin D and calcium. Diabetes mellitus. The patient's blood sugars remained below 200 consistently through her stay. Tobacco abuse. The patient was counseled at length regarding the need to discontinue her tobacco abuse. Possible pulmonary edema with diastolic heart failure. The patient's initial imaging was difficult to ascertain whether this was related to edema or potential infection. She was seen in consultation by Cardiology, who agreed with short course of some diuretic which was achieved. She did have a BNP of 1434, which was consistent with where she had been one month prior. Hypertension. The patient's blood pressure remained borderline high throughout her stay and was maintained on her usual home medications. PHYSICAL EXAMINATION: VITAL SIGNS: On the day of discharge, temperature was 97.8, pulse 68, respirations 16, O2 saturation 94% on room air, and BP was 150/61. GENERAL: The patient was morbidly obese. She was in no distress. She was awake and alert. HEART: Regular. LUNGS: Lung sounds are diminished, but compromised by body habitus. ABDOMEN: Soft, nontender. EXTREMITIES: There is persistent erythema in the left calf area with several small scabbed and open areas on both feet. DISPOSITION: The patient is discharged to home. DIET: She should be on a heart healthy, diabetic diet. ACTIVITY: As tolerated. MEDICATIONS: She will remain on: 1. Keflex 250 mg q.6 hours. 2. Calcium 600 mg b.i.d. 3. Vitamin D3 of 1000 units p.o. daily. 4. Lidoderm patch 4% OTC daily. 5. Tylenol No. 3 one p.o. q.4 hours p.r.n., quantity #20. 6. Glipizide 5 mg daily. 7. Sertraline 100 mg daily. 8. Gabapentin 600 mg at bedtime. 9. Chantix one p.o. b.i.d. 10. ProAir HFA p.r.n. 11. Metformin 1000 mg b.i.d. 12. Symbicort 160/4.5 one inhalation b.i.d. 13. Nystatin powder p.r.n. 14. Tizanidine 2 mg daily. FOLLOWUP: The patient is to follow up with K[facility] De [facility] on 09/01/2018 at 12:30 p.m. She is also to follow up with Dr. Benedict on 09/01/2018 at 11:00 a.m. She can return to the hospital should she have any problems prior to that time. Time spent in discharge activities, including face to face time with the patient , was 38 min. Job ID: [id number] MTDD
--- NOTE | 2018-08-29 17:10 | EKG ---
Test Reason : SOB Blood Pressure : / mmHG Vent. Rate : 096 BPM Atrial Rate : 096 BPM P-R Int : 154 ms QRS Dur : 100 ms QT Int : 364 ms P-R-T Axes : 046 116 054 degrees QTc Int : 459 ms Sinus rhythm with sinus arrhythmia with occasional Premature ventricular complexes Possible Left atrial enlargement Left posterior fascicular block Abnormal ECG Confirmed by DEANNA ORTIZ, ASHLY ([id number]), editor book [place] ([id number]) on 08/29/2018 5:09:49 PM Referred By: Confirmed By:ASHLY HUERTA MD
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
--- NOTE | 2018-09-03 05:52 | PQF ---
[employer] Crystal Reports Winform Viewer LAUREN PEARSON DAVID R MD [id number] [facility] [id number] CLINICAL DOCUMENTATION CLARIFICATION FORM: POST DISCHARGE Addendum to original discharge summary date: ____ Late entry note date: 09/06/18 DATE: 09-03-18 ATTN: Dr. Ana Campbell Please exercise your independent, professional judgment in responding to the clarification form. Clinical indicators are provided on the bottom of this form for your review Can you please specify whether CHF exacerbation is ruled in or ruled out during this encounter? Diastolic CHF exacerbation [x ] Ruled in diagnosis [ x ] Continue to treat [ ] Resolved [ ] Ruled out diagnosis [ ] Cannot rule out diagnosis [ ] Other diagnosis please specify: [ ] Unable to determine In addition, please specify: For continuity of documentation, please document condition throughout progress notes and discharge summary. Thank You. CLINICAL INDICATORS: ED Provider 08/22 pg.3- Diagnosis Final: CHF exacerbation H and P 08/23 pg.1 - Chief complaint: Shortness of breath H and P 08/23 pg.1 - She complaints about some swelling in her lower extremities on and off H and P 08/23 pg.1 - Questionable CHF with normal LVEF on the last echo, but this was technically very difficult study to read according to the report H and P 08/23 pg.2 - Imaging data: Chest X-ray personally reviewed by me showed increased interstitial markings suggestive of CHF ans some bilateral pleural effusion, slightly enlarged heart H and P 08/23 pg.2 - Shortness of breath. I suspect that is congestive heart failure exacerbation H and P 08/23 pg.2 - BNP is elevated at 1434 Consult 08/23 Dr. Matthews pg.1- Her last echo dated 08/06/2018 showed LVEF 50%- 55% Consult 08/23 Dr. Matthews pg.2- SOB is likely multifactorial. Elevated BNP, likely related to diastolic dysfunction. Consult 08/24 Dr. Matthews pg.1- Chronic systolic heart failure DS 08/28 pg.1- Chest X-ray showed some interstitial markings concerning for CHF or persistent pneumonia DS 08/28 pg.3 - Possible pulmonary edema with diastolic heart failure DS 08/28 pg.3 - She was seen in consultation by cardiology, who agreed with short course of some diuretic which was achieved. She did have a BNP of 1434, which was consistent with where she had been one month prior RISK FACTOR: Hypertension- DS pg.3 Morbid Obesity- H and P pg.1 Diabetes Mellitus-H and P pg.1 Smokes 2 packs per day- H and P pg.1 TREATMENTS: Cardiology Consult- 08/23 Dr. Matthews Chest X-ray 08/22 Echocardiogram- 08/22 Furosemide (Lasix) 40mg IV- MAR 08/22 (This form is maintained as a part of the permanent medical record) 2014 [employer] All Rights Reserved Jonathan [email or web address] [not provided] MTDD
== END 2018-08-28 14:26 | disposition home or self-care (01) | DRG 291 ==
LOC: ERS 14:48 → 2SW 19:34 → OBSVTOIN 19:34 → 2NO 08-24 16:42
PROVIDERS: ADMIT Internal Medicine; ATTEND Internal Medicine
DX: I11.0 Hypertensive heart disease with heart failure (principal); J18.9 Pneumonia, unspecified organism; J96.21 Acute and chronic respiratory failure with hypoxia; J44.1 Chronic obstructive pulmonary disease with (acute) exacerbation; J44.0 Chronic obstructive pulmonary disease with (acute) lower respiratory infection; Z68.42 Body mass index [BMI] 45.0-49.9, adult; M80.88XA Other osteoporosis with current pathological fracture, vertebra(e), initial encounter for fracture; L03.116 Cellulitis of left lower limb; I50.33 Acute on chronic diastolic (congestive) heart failure; F32.9 Major depressive disorder, single episode, unspecified; F17.210 Nicotine dependence, cigarettes, uncomplicated; E66.01 Morbid (severe) obesity due to excess calories; E11.9 Type 2 diabetes mellitus without complications; D72.819 Decreased white blood cell count, unspecified; Y95 Nosocomial condition; G47.33 Obstructive sleep apnea (adult) (pediatric); Z90.49 Acquired absence of other specified parts of digestive tract; Z88.5 Allergy status to narcotic agent; Z91.040 Latex allergy status; Z90.710 Acquired absence of both cervix and uterus; Z85.41 Personal history of malignant neoplasm of cervix uteri; Z79.899 Other long term (current) drug therapy; Z86.718 Personal history of other venous thrombosis and embolism; Z79.84 Long term (current) use of oral hypoglycemic drugs; Z79.51 Long term (current) use of inhaled steroids
CPT/HCPCS: 36415; 36416; 71045; 71275; 80048; 80053; 82306; 83605; 83880; 84145; 84484; 85025; 85379; 87040; 87070; 87077; 87205; 93005; 94640; 96374; J0456; J0692; J0696; J1650; J1885; J1940; J2920; J3490; J7050; J7620; Q9966

== ENCOUNTER 2018-09-01 13:36 | Inpatient (IN) | payer OTHER ==
[2018-09-01 14:46] LABS: Actual Bicarbonate (HCO3a) 25.9 mEq/L (22-28); Analyzer IN Cardio ER; Base Excess (BEa) 0.7 mEq/L (-2.0 to +3.0); CO2 Tension 43.3 mmHg (35.0-45.0); Carboxyhemoglobin (COHb) 2.2 gm% (0.0-3.0); Hemoglobin (Hb) 12.6 g/dL (12.0-16.0); O2 Tension (PaO2) 93.6 mmHg (80.0-100.0); Potassium - ABG Lab 3.95 mmol/L (3.70-5.30); pH, Arterial 7.39 (7.35-7.45)
[2018-09-01 14:49] LABS: ALV-art Gradient 51.915 (0-20)
[2018-09-01 15:05] LABS: #Basophils 0.1 thou/uL (0.0-0.2); #Eosinphils 0.1 thou/uL (0.0-0.7); #Lymphocytes 0.8 thou/uL (1.20-3.40); #Monocytes 0.4 thou/uL (0.11-0.59); #Neutrophils 3.6 thou/uL (1.40-6.50); %Basophils 1.2 % (0.0-1.0); %Eosinophils 1.2 % (0.0-10.0); %Lymphocytes 16.7 % (21.0-51.0); %Monocytes 7.4 % (0.0-10.0); %Neutrophils 73.5 % (42.0-75.0); Hemoglobin 11.4 g/dL (12.0-16.0); Mean Corpuscular HGB CONC 30.7 g/dL (32.0-36.0); Mean Corpuscular Hemoglobin 25.4 pg (27.0-31.0); Mean Corpuscular Volume 82.7 fL (78.0-98.0); Mean Platelet Volume 7.5 fL (7.4-10.4); Platelet Count 209 thou/uL (130-400); Red Blood Cell (RBC) Count 4.48 mill/uL (4.20-5.40)
[2018-09-01] MEDS ORDERED: Furosemide 40 MG/4 ML VIAL ONE (15:07)
[2018-09-01] MEDS ORDERED: HYDROcodone/Acetaminophen 10/325 mg Tablet ONE (15:21)
[2018-09-01 15:29] LABS: ALT (SGPT) 59 U/L (8-55); AST (SGOT) 55 U/L (5-34); Albumin 3.1 g/dL (3.5-5.0); Alkaline Phosphatase 444 U/L (40-150); Anion Gap 12 mmol/L (10-20); BUN (Urea Nitrogen) 12 mg/dL (9.8-20.1); Bilirubin, Total 0.6 mg/dL (0.2-1.2); CK (CPK) 44 U/L (29-168); Calc. Creatinine Clearance 0 mL/min (70-130); Calcium 8.9 mg/dL (7.8-10.44); Carbon Dioxide 25 mmol/L (22-29); Chloride 105 mmol/L (98-107); Estimated GFR-MDRD Greater than 90; Globulin 3.5 g/dL (2.4-3.5); Glucose 124 mg/dL (70-105); Lipase 9 U/L (8-78); Potassium 4.2 mmol/L (3.5-5.1); Protein, Total 6.6 g/dL (6.0-8.3); Sodium 138 mmol/L (136-145)
--- NOTE | 2018-09-01 15:48 | RAD ---
EXAM: CHEST ONE VIEW: 09/01/18 HISTORY: Chest pain. COMPARISON: 08/22/18. Cardiomegaly with bilateral vascular congestion, interstitial edema and pleural effusions, evidence f or congestive heart failure. Little change from prior study. IMPRESSION: Stable congestive heart failure findings. POS: RRE
[2018-09-01 15:57] LABS: Bilirubin Negative (Negative); Blood, Urine Negative (Negative); Clarity Clear (Clear); Glucose, Urine (Dipstick) Normal (Negative); Leukocyte Negative Leu/uL (Negative); Nitrite Negative (Negative); Protein, Urine (Dipstick) 20 mg/dL (Neg-Trace); Urobilinogen Normal mg/dL (Less than 2)
[2018-09-01] MEDS ORDERED: Piperacillin/Tazobactam 4.5 GM VIAL ONE (16:13)
[2018-09-01] MEDS ORDERED: Enoxaparin Sodium 60 MG/0.6 ML SYRINGE ONE (16:13)
[2018-09-01] MEDS ORDERED: Enoxaparin Sodium 100 MG/ML SYRINGE ONE (16:13)
[2018-09-01] MEDS ORDERED: Fentanyl 100 MCG/2 ML VIAL ONE (16:14)
[2018-09-01] MEDS ORDERED: Enoxaparin Sodium 40 MG/0.4 ML SYRINGE ONE (16:27)
[2018-09-01] MEDS ORDERED: Magnesium 2 GM/50 ML 2 GM in Premix Bag 1 BAG IVPB SCH (18:15)
[2018-09-01 18:54] LABS: Troponin I Less than 0.010 ng/mL (< 0.028)
[2018-09-01] MEDS ORDERED: Ondansetron ODT 4 MG TAB SL PRN (19:44)
[2018-09-01] MEDS ORDERED: Ondansetron PF 4 MG/2 ML Vial IVP PRN ×2 (19:44→21:35)
[2018-09-01] MEDS ORDERED: Furosemide 40 MG/4 ML VIAL SLOW IVP SCH (19:45)
[2018-09-01] MEDS ORDERED: Aspirin 325 MG TAB PO SCH (21:00)
[2018-09-01] MEDS ORDERED: Acetaminophen 325 MG TAB PO PRN (21:35)
[2018-09-01 21:58] LABS: Amphetamine Not Detected (NotDetected); Barbiturates Screen Not Detected (NotDetected); Benzodiazepine Screen Detected (NotDetected); Cocaine Metabolite Screen Not Detected (NotDetected); Medtox Control Line Valid? VALID (VALID); Medtox Reader # READER 1; Methadone Not Detected (NotDetected); Methamphetamine Not Detected (NotDetected); Opiate Screen Detected (NotDetected); Oxycodone Screen Not Detected (NotDetected); Phencyclidine (PCP) Not Detected (NotDetected); THC/Cannabinoid Screen Not Detected (NotDetected); Tricyclic Screen Not Detected (NotDetected)
[2018-09-01] MEDS: Nitroglycerin 2% Ointment 1 INCH/1 GM Packet TOP SCH ×2 (23:11→23:15)
--- NOTE | 2018-09-01 23:11 | ULT ---
EXAM: Bilateral lower extremity venous duplex: Deep veins evaluated with color Doppler, spectral analysis, and compression. INDICATIONS: Bilateral lower extremity pain and edema. FINDINGS: Lower extremity soft tissue edema. Deep veins interrogated include common femoral vein, fem oral vein, popliteal vein, and posterior tibial vein. These veins show normal compression and blood flow. No evidence of DVT. IMPRESSION: Negative Bilateral venous duplex exam.
[2018-09-02] MEDS: Piperacillin/Tazobactam 3.375 GM in Sodium Chloride 0.9% 100 ML IVPB SCH ×4 (00:02→23:39)
[2018-09-02] MEDS: Ketorolac Tromethamine 10 MG TAB PO SCH ×5 (01:35→23:41)
[2018-09-02] MEDS ORDERED: Ketorolac Tromethamine 10 MG TAB PO SCH (01:45)
[2018-09-02] MEDS: Famotidine/PF 20 mg/2ml Vial SLOW IVP SCH ×2 (08:01→19:42)
[2018-09-02 08:50] LABS: #Eosinphils 0.1 thou/uL (0.0-0.7); #Lymphocytes 0.8 thou/uL (1.20-3.40); #Monocytes 0.4 thou/uL (0.11-0.59); #Neutrophils 3.6 thou/uL (1.40-6.50); %Eosinophils 2.2 % (0.0-10.0); %Lymphocytes 15.5 % (21.0-51.0); %Monocytes 7.5 % (0.0-10.0); %Neutrophils 73.9 % (42.0-75.0); Hemoglobin 12.3 g/dL (12.0-16.0); Mean Corpuscular HGB CONC 31.4 g/dL (32.0-36.0); Mean Corpuscular Hemoglobin 26.1 pg (27.0-31.0); Mean Corpuscular Volume 83.2 fL (78.0-98.0); Mean Platelet Volume 7.5 fL (7.4-10.4); Platelet Count 199 thou/uL (130-400); RBC Distribution Width 16.1 % (11.5-14.5); Red Blood Cell (RBC) Count 4.71 mill/uL (4.20-5.40); White Blood Cell (WBC) Count 4.9 thou/uL (4.8-10.8)
[2018-09-02 09:06] LABS: Anion Gap 13 mmol/L (10-20); BUN (Urea Nitrogen) 12 mg/dL (9.8-20.1); Calc. Creatinine Clearance 216 mL/min (70-130); Calcium 9.7 mg/dL (7.8-10.44); Carbon Dioxide 26 mmol/L (22-29); Chloride 104 mmol/L (98-107); Estimated GFR-MDRD Greater than 90; Glucose 120 mg/dL (70-105); Potassium 4.3 mmol/L (3.5-5.1); Sodium 139 mmol/L (136-145)
[2018-09-02] MEDS: Ondansetron ODT 4 MG TAB PO PRN (09:57)
[2018-09-02] MEDS: Acetaminophen/Codeine 30-300mg Tablet PO PRN ×4 (09:57→22:23)
[2018-09-02] MEDS ORDERED: PROVENTIL INHALER 6.7 G (200 INHALATIONS) INH PRN (11:45)
[2018-09-02] MEDS ORDERED: Acetaminophen/Codeine 30-300mg Tablet PO PRN (11:45)
--- NOTE | 2018-09-02 13:35 | PRG ---
DATE OF SERVICE: 09/02/2018 SUBJECTIVE: The patient was seen and examined at the bedside. The patient reports improvement with her breathing and her left lower extremity redness. She noticed significant changes since yesterday. OBJECTIVE: VITAL SIGNS: Blood pressure is 158/71, pulse is 65, respiratory rate is 20, temperature is 97.5, and pulse oximetry is 99% on 2 L by nasal cannula. HEENT: Her head is atraumatic and normocephalic. Sclerae are nonicteric. Oral mucosa is moist. NECK: Supple. LUNGS: Breath sounds diminished at both bases. HEART: S1 and S2, normal. No S3. No S4. ABDOMEN: Obese. Bowel sounds present, sluggish. EXTREMITIES: Left lower extremity below the knee with erythema, somewhat diminished than what it was marked yesterday. The right lower extremity does not show any erythema. NEUROLOGIC: She follows my commands. She moves all 4 extremities. There are no any motor deficits. LABORATORY DATA: Labs showed white count of 4.9, hemoglobin of 12.3, hematocrit 39.2, platelet count is 199,000. Normal electrolytes. Normal kidney function, 0.67 creatinine and BUN of 12. Glucose 120, calcium 9.7. Two sets of troponin-I, normal. Plasma alcohol less than 10. Microbiology, two blood cultures negative. Venogram of the left lower extremity is negative for any DVT. IMPRESSION: 1. Left lower extremity cellulitis. 2. Recent pneumonia. 3. Congestive heart failure. 4. Acute on chronic respiratory failure with hypoxemia, on O2 at home. 5. Chronic obstructive pulmonary disease. 6. Compression fracture of T11 and T12. The patient is supposed to have MRI done on outpatient basis for further evaluation of this condition. Apparently, she is not a candidate for any kyphoplasty at this point since she has infection and she has to be free of the infection for 2 weeks before the procedure. 7. Diabetes mellitus. 8. Hypertension. 9. Morbid obesity. 10. Vitamin D deficiency. 11. Tobacco abuse. 12. Right pleural effusion, status post drainage of transudative fluid. PLAN: Plan is to continue her Zosyn at this point and continue her pain management with Tylenol No. 3. I do not want to start her on hydrocodone since she has not been on it for the last 2 months. Apparently, she lost her pain management doctor recently. We will continue O2 and continue diuresis with IV Lasix, and we will follow with daily labs. Job ID: [id number]
[2018-09-02] MEDS ORDERED: Furosemide 40 MG/4 ML VIAL ONE (14:20)
[2018-09-02] MEDS ORDERED: Gabapentin 300 MG CAP PO SCH (14:45)
[2018-09-02] MEDS: Mometasone/Formoterol 120 PUFF INHALER INH SCH (19:09)
[2018-09-02] MEDS: Gabapentin 300 MG CAP PO SCH (19:41)
[2018-09-02] MEDS: Varenicline Tartrate 0.5 MG TAB PO SCH (19:41)
[2018-09-02] MEDS: Calcium Carbonate 600 MG TAB PO SCH (19:42)
[2018-09-03] MEDS: Acetaminophen/Codeine 30-300mg Tablet PO PRN ×5 (03:08→22:59)
[2018-09-03] MEDS: Ketorolac Tromethamine 10 MG TAB PO SCH ×3 (04:58→17:01)
[2018-09-03] MEDS ORDERED: Furosemide 40 MG/4 ML VIAL SLOW IVP SCH (06:00)
[2018-09-03] MEDS: Piperacillin/Tazobactam 3.375 GM in Sodium Chloride 0.9% 100 ML IVPB SCH (07:36)
[2018-09-03] MEDS: Famotidine/PF 20 mg/2ml Vial SLOW IVP SCH (07:37)
[2018-09-03] MEDS: tiZANidine HCl 4 MG TAB PO SCH (07:38)
[2018-09-03] MEDS: Calcium Carbonate 600 MG TAB PO SCH ×2 (07:39→20:59)
[2018-09-03] MEDS: Varenicline Tartrate 0.5 MG TAB PO SCH ×2 (07:39→20:59)
[2018-09-03] MEDS: Ondansetron ODT 4 MG TAB PO PRN (07:39)
[2018-09-03] MEDS: Mometasone/Formoterol 120 PUFF INHALER INH SCH ×2 (07:42→19:57)
--- NOTE | 2018-09-03 08:01 | PDOC.HOSPP ---
- Subjective Subjective: sob somewhat improved, pain in LL leg decreased - Objective Vital Signs & Weight: Vital Signs (12 hours) Temp Pulse Resp BP Pulse Ox 09/03/18 07:45 93 L 09/03/18 07:42 65 16 93 L 09/03/18 04:00 98.5 F 105 H 20 139/81 94 L 09/02/18 23:15 97.5 F L 95 20 138/74 92 L Weight Admit Weight 310 lb 4 oz Weight 310 lb 4 oz I&O: 09/02/18 09/03/18 09/04/18 06:59 06:59 06:59 Intake Total 1190 Output Total 2900 1200 Balance -1710 -1200 Result Diagrams: 09/02/18 08:40 09/02/18 08:40 ROS - Review of Systems All systems: All other ROS were reviewed and found negative. - Medication Medications: Active Medications Generic Name Dose Route Start Last Admin Trade Name Freq PRN Reason Stop Dose Admin Acetaminophen 650 mg 09/01/18 21:35 09/01/18 23:11 Tylenol PO 650 mg Q4H PRN Administration Fever > 101 Acetaminophen/Codeine Phosphate 1 tab 09/02/18 09:45 09/03/18 07:37 Tylenol #3 PO 1 tab Q4H PRN Administration Pain Calcium Carbonate 600 mg 09/02/18 21:00 09/03/18 07:39 Caltrate PO 600 mg BID ATTILA Administration Cholecalciferol 1,000 units 09/03/18 09:00 09/03/18 07:39 Vitamin D3 PO 1,000 units DAILY ATTILA Administration Famotidine 20 mg 09/02/18 09:00 09/03/18 07:37 Pepcid SLOW IVP 20 mg Q12HR ATTILA Administration Gabapentin 600 mg 09/02/18 21:00 09/02/18 19:41 Neurontin PO 600 mg HS ATTILA Administration Glipizide 5 mg 09/03/18 09:00 09/03/18 07:37 Glucotrol Xl PO 5 mg DAILY ATTILA Administration Ketorolac Tromethamine 10 mg 09/02/18 06:00 09/03/18 04:58 Toradol PO 09/07/18 06:01 Not Given Q6HR [facility] Mometasone Furoate/Formoterol Fumar 2 puff 09/02/18 18:30 09/03/18 07:42 Dulera 200 Mcg/5 Mcg Inhaler INH 2 puff BID-RT ATTILA Administration Ondansetron HCl 4 mg 09/01/18 21:35 09/03/18 07:39 Zofran Odt PO 4 mg Q6H PRN Administration Nausea/Vomiting Sertraline HCl 100 mg 09/03/18 09:00 09/03/18 07:40 Zoloft PO 100 mg DAILY ATTILA Administration Sodium Chloride 10 ml 09/01/18 21:00 09/03/18 07:40 Flush - Normal Saline IVF 10 ml Q12HR ATTILA Administration Tizanidine HCl 2 mg 09/03/18 09:00 09/03/18 07:38 Zanaflex PO 2 mg QAM ATTILA Administration Varenicline 1 mg 09/02/18 21:00 09/03/18 07:39 Chantix PO 1 mg BID ATTILA Administration - Exam Neck: no JVD Heart: RRR, no murmur Gastrointestinal: soft, non-distended, normal bowel sounds Extremities: 1+ LE edema Hosp A/P (1) Acute on chronic diastolic HF (heart failure) Code(s): I50.33 - ACUTE ON CHRONIC DIASTOLIC (CONGESTIVE) HEART FAILURE Status : Acute (2) Cellulitis and abscess of left leg Code(s): L03.116 - CELLULITIS OF LEFT LOWER LIMB; L02.416 - CUTANEOUS ABSCESS OF LEFT LOWER LIMB Status: Acute (3) COPD without exacerbation Code(s): J44.9 - CHRONIC OBSTRUCTIVE PULMONARY DISEASE, UNSPECIFIED Status: Acute (4) Chronic respiratory failure Code(s): J96.10 - CHRONIC RESPIRATORY FAILURE, UNSP W HYPOXIA OR HYPERCAPNIA Status: Acute Qualifiers: Respiratory failure complication: unspecified whether with hypoxia or hypercapnia Qualified Code(s): J96.10 - Chronic respiratory failure, unspecified whether with hypoxia or hypercapnia (5) DM type 2 (diabetes mellitus, type 2) Status: Chronic Qualifiers: Diabetes mellitus terminal supervisor insulin use: without terminal supervisor use Diabetes mellitus complication status: without complication Qualified Code(s): E11.9 - Type 2 diabetes mellitus without complications (6) HTN (hypertension) Code(s): I10 - ESSENTIAL (PRIMARY) HYPERTENSION Status: Chronic Qualifiers: Hypertension type: essential hypertension Qualified Code(s): I10 - Essential (primary) hypertension (7) Morbid obesity with BMI of 45.0-49.9, adult Code(s): E66.01 - MORBID (SEVERE) OBESITY DUE TO EXCESS CALORIES; Z68.42 - BODY MASS INDEX (BMI) 45.0-49.9, ADULT Status: Chronic - Plan continue antibiotics, respiratory therapy pos diuresis with iv lasix, cont. will add ARB. switch to iv rocephin for LLL cellulitis. cont O2, nebs etc for COPD. cont accu/ss/etc for DM
[2018-09-03] MEDS: Valsartan 80 MG TAB PO SCH (09:20)
[2018-09-03] MEDS: Furosemide 40 MG/4 ML VIAL SLOW IVP SCH (16:57)
[2018-09-03] MEDS: cefTRIAXone\\ROCEPHIN 2 GM in Sodium Chloride 0.9% 100 ML IVPB SCH (18:05)
[2018-09-03] MEDS: Gabapentin 300 MG CAP PO SCH (20:59)
[2018-09-03] MEDS: Famotidine 20 MG TAB PO SCH (20:59)
[2018-09-04] MEDS: Ketorolac Tromethamine 10 MG TAB PO SCH ×5 (00:19→23:13)
[2018-09-04] MEDS: Acetaminophen/Codeine 30-300mg Tablet PO PRN ×4 (05:35→21:20)
[2018-09-04] MEDS: Furosemide 40 MG/4 ML VIAL SLOW IVP SCH ×2 (05:36→14:30)
[2018-09-04] MEDS: Mometasone/Formoterol 120 PUFF INHALER INH SCH ×2 (07:25→19:36)
[2018-09-04] MEDS: Calcium Carbonate 600 MG TAB PO SCH ×2 (08:19→21:07)
[2018-09-04] MEDS: Valsartan 80 MG TAB PO SCH (08:19)
[2018-09-04] MEDS: Varenicline Tartrate 0.5 MG TAB PO SCH ×2 (08:20→21:07)
[2018-09-04] MEDS: Famotidine 20 MG TAB PO SCH ×2 (08:20→21:07)
[2018-09-04] MEDS: tiZANidine HCl 4 MG TAB PO SCH (08:21)
[2018-09-04] MEDS ORDERED: cefTRIAXone\\ROCEPHIN 2 GM in Sodium Chloride 0.9% 100 ML IVPB SCH (09:00)
--- NOTE | 2018-09-04 13:58 | PRG ---
DATE OF SERVICE: 09/04/2018 SUBJECTIVE: The patient is seen and examined at bedside. She is feeling significantly better, although complaining about the back pain. Her appetite is fair and she noticed the redness of her left lower extremities is improving. OBJECTIVE: VITAL SIGNS: Blood pressure is 127/60, pulse is 61, temperature is 98.0, respiratory rate is 18, O2 saturation is 92% on 2 L by nasal cannula. GENERAL: She is very obese. Her BMI is 45.8. HEENT: Sclerae are nonicteric. Oral mucosa is somewhat dry. NECK: Supple, obese. LUNGS: Right base dull to percussion. Breath sounds somewhat diminished at this area. HEART: S1 and S2, normal. No S3. No S4. ABDOMEN: Obese, soft, nontender. Bowel sounds are sluggish. EXTREMITIES: Left lower extremity erythema significantly diminished. NEUROLOGIC: Not changed. She is alert and oriented x4. There are no any motor deficits. There is pain to the lower part of the thoracic spine in the mid center on palpation. LABORATORY DATA: None today. IMPRESSION: 1. Acute on chronic diastolic heart failure. 2. Cellulitis of the left lower extremity, improving. 3. Chronic obstructive pulmonary disease without exacerbation. 4. Chronic respiratory failure. 5. Diabetes mellitus, type 2. 6. Hypertension. 7. Morbid obesity. 8. T11 and T12 fracture of the thoracic spine. PLAN: MRI of the thoracic spine with and without contrast. Continue diuresis with IV Lasix. Continue her antibiotic since she is responding well. Continue DuoNebs and check her comp tomorrow morning. Job ID: [id number]
[2018-09-04] MEDS: cefTRIAXone\\ROCEPHIN 2 GM in Sodium Chloride 0.9% 100 ML IVPB SCH (17:27)
[2018-09-04] MEDS: Gabapentin 300 MG CAP PO SCH (21:07)
[2018-09-05] MEDS: Acetaminophen/Codeine 30-300mg Tablet PO PRN ×6 (01:37→23:26)
[2018-09-05] MEDS: Furosemide 40 MG/4 ML VIAL SLOW IVP SCH ×2 (05:44→14:18)
[2018-09-05] MEDS: Ketorolac Tromethamine 10 MG TAB PO SCH ×4 (05:46→21:56)
[2018-09-05 06:26] LABS: Anion Gap 14 mmol/L (10-20); BUN (Urea Nitrogen) 21 mg/dL (9.8-20.1); Calc. Creatinine Clearance 201 mL/min (70-130); Calcium 10.3 mg/dL (7.8-10.44); Carbon Dioxide 33 mmol/L (22-29); Chloride 95 mmol/L (98-107); Estimated GFR-MDRD 88; Glucose 109 mg/dL (70-105); Potassium 4.3 mmol/L (3.5-5.1); Sodium 138 mmol/L (136-145)
[2018-09-05] MEDS: Mometasone/Formoterol 120 PUFF INHALER INH SCH ×2 (06:28→18:46)
[2018-09-05] MEDS: Valsartan 80 MG TAB PO SCH (08:07)
[2018-09-05] MEDS: Famotidine 20 MG TAB PO SCH ×2 (08:07→19:49)
[2018-09-05] MEDS: Calcium Carbonate 600 MG TAB PO SCH ×2 (08:08→19:49)
[2018-09-05] MEDS: Varenicline Tartrate 0.5 MG TAB PO SCH ×2 (08:14→19:49)
[2018-09-05] MEDS: tiZANidine HCl 4 MG TAB PO SCH (08:14)
[2018-09-05] MEDS: cefTRIAXone\\ROCEPHIN 2 GM in Sodium Chloride 0.9% 100 ML IVPB SCH (15:43)
--- NOTE | 2018-09-05 18:15 | PDOC.HOSPP ---
- Subjective Subjective: Ms. Terrazas was seen today in follow-up of cellulitis of the lower extremities. She says the redness has improved some. She is also breathing a bit better. - Objective Vital Signs & Weight: Vital Signs (12 hours) Temp Pulse Pulse Pulse Resp BP BP 09/05/18 16:00 97.7 F 55 L 18 09/05/18 11:56 97.9 F 90 18 09/05/18 10:56 54 L 53 L 153/64 H 134/63 09/05/18 08:00 97.8 F 75 18 09/05/18 06:29 09/05/18 06:28 59 L 16 BP Pulse Ox 09/05/18 16:00 131/60 92 L 09/05/18 11:56 153/64 H 92 L 09/05/18 10:56 09/05/18 08:00 179/71 H 94 L 09/05/18 06:29 96 09/05/18 06:28 96 Weight Admit Weight 310 lb 4 oz Weight 301 lb 4.8 oz I&O: 09/04/18 09/05/18 09/06/18 06:59 06:59 06:59 Intake Total 630 1400 720 Output Total 1999 2900 4100 Balance -1471 -0805 -3352 Result Diagrams: 09/02/18 08:40 09/05/18 05:36 ROS - Review of Systems All systems: All other ROS were reviewed and found negative. - Medication Medications: Active Medications Generic Name Dose Route Start Last Admin Trade Name Freq PRN Reason Stop Dose Admin Acetaminophen 650 mg 09/01/18 21:35 09/01/18 23:11 Tylenol PO 650 mg Q4H PRN Administration Fever > 101 Acetaminophen/Codeine Phosphate 1 tab 09/02/18 09:45 09/05/18 15:41 Tylenol #3 PO 1 tab Q4H PRN Administration Pain Albuterol Sulfate 2 puff 09/02/18 11:45 09/04/18 19:20 Proventil Hfa INH 2 puff PRN PRN Administration Wheezing Calcium Carbonate 600 mg 09/02/18 21:00 09/05/18 08:08 Caltrate PO 600 mg BID ATTILA Administration Cholecalciferol 1,000 units 09/03/18 09:00 09/05/18 08:08 Vitamin D3 PO 1,000 units DAILY ATTILA Administration Famotidine 20 mg 09/03/18 21:00 09/05/18 08:07 Pepcid PO 20 mg Q12HR ATTILA Administration Furosemide 40 mg 09/03/18 14:00 09/05/18 14:18 Lasix SLOW IVP 40 mg 0600,1400 ATTILA Administration Gabapentin 600 mg 09/02/18 21:00 09/04/18 21:07 Neurontin PO 600 mg HS ATTILA Administration Glipizide 5 mg 09/03/18 09:00 09/05/18 08:07 Glucotrol Xl PO 5 mg DAILY ATTILA Administration Ceftriaxone Sodium 2 gm/ 100 mls @ 200 mls/hr 09/03/18 17:00 09/05/18 15:43 Sodium Chloride IVPB 100 mls 1700 ATTILA Administration Ketorolac Tromethamine 10 mg 09/02/18 06:00 09/05/18 17:47 Toradol PO 09/07/18 06:01 Not Given Q6HR ATTILA Mometasone Furoate/Formoterol Fumar 2 puff 09/02/18 18:30 09/05/18 06:28 Dulera 200 Mcg/5 Mcg Inhaler INH 2 puff BID-RT ATTILA Administration Ondansetron HCl 4 mg 09/01/18 21:35 09/03/18 07:39 Zofran Odt PO 4 mg Q6H PRN Administration Nausea/Vomiting Sertraline HCl 100 mg 09/03/18 09:00 09/05/18 08:13 Zoloft PO 100 mg DAILY ATTILA Administration Sodium Chloride 10 ml 09/01/18 21:00 09/05/18 08:09 Flush - Normal Saline IVF 10 ml Q12HR ATTILA Administration Sodium Chloride 10 ml 09/01/18 19:44 09/04/18 05:37 Flush - Normal Saline IVF 10 ml PRN PRN Administration Saline Flush Tizanidine HCl 2 mg 09/03/18 09:00 09/05/18 08:14 Zanaflex PO 2 mg QAM ATTILA Administration Valsartan 80 mg 09/03/18 09:00 09/05/18 08:07 Diovan PO 80 mg DAILY ATTILA Administration Varenicline 1 mg 09/02/18 21:00 09/05/18 08:14 Chantix PO 1 mg BID ATTILA Administration - Exam NAD Eye: PERRL, anicteric sclera Neck: supple, symmetric, no JVD, no Thyromegaly Heart: RRR, no murmur, no gallops, no rubs Respiratory: CTAB, no wheezes, no rales, no ronchi, normal chest expansion Gastrointestinal: soft, non-tender, non-distended, normal bowel sounds Extremities: 1+ LE edema (+ mild bilater erythema in both lower extremities) Skin: normal turgor (+ ulceration on the left ankle, and dorsum of both feet) Hosp A/P (1) Cellulitis of left leg Code(s): L03.116 - CELLULITIS OF LEFT LOWER LIMB Status: Acute (2) Acute on chronic diastolic HF (heart failure) Code(s): I50.33 - ACUTE ON CHRONIC DIASTOLIC (CONGESTIVE) HEART FAILURE Status : Acute (3) COPD without exacerbation Code(s): J44.9 - CHRONIC OBSTRUCTIVE PULMONARY DISEASE, UNSPECIFIED Status: Acute (4) DM type 2 (diabetes mellitus, type 2) Status: Chronic Qualifiers: Diabetes mellitus keno terminal operator insulin use: without alf use Diabetes mellitus complication status: without complication Qualified Code(s): E11.9 - Type 2 diabetes mellitus without complications (5) HTN (hypertension) Code(s): I10 - ESSENTIAL (PRIMARY) HYPERTENSION Status: Chronic Qualifiers: Hypertension type: essential hypertension Qualified Code(s): I10 - Essential (primary) hypertension - Plan * Cellulitis of the left leg- improving- can likely transition to an oral antibiotic in a day or so * Acute on chronic diastolic heart failure- continue to diurese with IV Lasix * COPD- stable * DM- blood glucose is stable * MRI of T-spine has been ordered
[2018-09-05] MEDS: Gabapentin 300 MG CAP PO SCH (19:49)
[2018-09-06] MEDS: Acetaminophen/Codeine 30-300mg Tablet PO PRN ×3 (03:23→12:54)
[2018-09-06] MEDS: Furosemide 40 MG/4 ML VIAL SLOW IVP SCH ×2 (06:06→15:33)
[2018-09-06] MEDS: Ketorolac Tromethamine 10 MG TAB PO SCH ×4 (06:13→20:43)
[2018-09-06] MEDS: Mometasone/Formoterol 120 PUFF INHALER INH SCH ×2 (06:44→18:55)
[2018-09-06] MEDS: Famotidine 20 MG TAB PO SCH ×2 (09:36→20:35)
[2018-09-06] MEDS: Valsartan 80 MG TAB PO SCH (09:36)
[2018-09-06] MEDS: tiZANidine HCl 4 MG TAB PO SCH (09:37)
[2018-09-06] MEDS: Calcium Carbonate 600 MG TAB PO SCH ×2 (10:11→20:35)
[2018-09-06] MEDS: Varenicline Tartrate 0.5 MG TAB PO SCH ×2 (10:31→20:39)
--- NOTE | 2018-09-06 16:10 | PDOC.HOSPP ---
- Subjective Subjective: Ms. Terrazas was seen today at approximately 12:30 in follow-up of cellulitis of her legs. she was sleeping when I saw her wth her right leg in a dependent position, hanging out of the bed. She notes decreased redness in the legs. She denies any shortness of breath. Her main concern is pain in her mid back, she says is due to the spinal fractures. - Objective Vital Signs & Weight: Vital Signs (12 hours) Temp Pulse Resp BP Pulse Ox 09/06/18 15:44 97.8 F 60 18 126/58 L 94 L 09/06/18 13:03 98.2 F 88 18 149/87 H 95 09/06/18 08:00 94 L 09/06/18 07:44 98.8 F 65 18 146/65 H 94 L 09/06/18 06:44 61 16 97 Weight Admit Weight 310 lb 4 oz Weight 297 lb 12.8 oz I&O: 09/05/18 09/06/18 09/07/18 06:59 06:59 06:59 Intake Total 1400 1320 Output Total 2900 6000 1950 Balance -1500 -4680 -1950 Result Diagrams: 09/02/18 08:40 09/05/18 05:36 ROS - Review of Systems All systems: All other ROS were reviewed and found negative. - Medication Medications: Active Medications Generic Name Dose Route Start Last Admin Trade Name Freq PRN Reason Stop Dose Admin Acetaminophen 650 mg 09/01/18 21:35 09/01/18 23:11 Tylenol PO 650 mg Q4H PRN Administration Fever > 101 Acetaminophen/Codeine Phosphate 1 tab 09/02/18 09:45 09/06/18 12:54 Tylenol #3 PO 1 tab Q4H PRN Administration Pain Albuterol Sulfate 2 puff 09/02/18 11:45 09/04/18 19:20 Proventil Hfa INH 2 puff PRN PRN Administration Wheezing Calcium Carbonate 600 mg 09/02/18 21:00 09/06/18 10:11 Caltrate PO 600 mg BID ATTILA Administration Cholecalciferol 1,000 units 09/03/18 09:00 09/06/18 09:37 Vitamin D3 PO 1,000 units DAILY ATTILA Administration Famotidine 20 mg 09/03/18 21:00 09/06/18 09:36 Pepcid PO 20 mg Q12HR ATTILA Administration Furosemide 40 mg 09/03/18 14:00 09/06/18 15:33 Lasix SLOW IVP 40 mg 0600,1400 ATTILA Administration Gabapentin 600 mg 09/02/18 21:00 09/05/18 19:49 Neurontin PO 600 mg HS ATTILA Administration Glipizide 5 mg 09/03/18 09:00 09/06/18 09:36 Glucotrol Xl PO 5 mg DAILY ATTILA Administration Ceftriaxone Sodium 2 gm/ 100 mls @ 200 mls/hr 09/03/18 17:00 09/05/18 15:43 Sodium Chloride IVPB 100 mls 1700 ATTILA Administration Ketorolac Tromethamine 10 mg 09/02/18 06:00 09/06/18 12:56 Toradol PO 09/07/18 06:01 Not Given Q6HR ATTILA Mometasone Furoate/Formoterol Fumar 2 puff 09/02/18 18:30 09/06/18 06:44 Dulera 200 Mcg/5 Mcg Inhaler INH 2 puff BID-RT ATTILA Administration Ondansetron HCl 4 mg 09/01/18 21:35 09/03/18 07:39 Zofran Odt PO 4 mg Q6H PRN Administration Nausea/Vomiting Sertraline HCl 100 mg 09/03/18 09:00 09/06/18 09:36 Zoloft PO 100 mg DAILY ATTILA Administration Sodium Chloride 10 ml 09/01/18 21:00 09/06/18 09:37 Flush - Normal Saline IVF 10 ml Q12HR ATTILA Administration Sodium Chloride 10 ml 09/01/18 19:44 09/06/18 06:07 Flush - Normal Saline IVF 10 ml PRN PRN Administration Saline Flush Tizanidine HCl 2 mg 09/03/18 09:00 09/06/18 09:37 Zanaflex PO 2 mg QAM ATTILA Administration Valsartan 80 mg 09/03/18 09:00 09/06/18 09:36 Diovan PO 80 mg DAILY ATTILA Administration Varenicline 1 mg 09/02/18 21:00 09/06/18 10:31 Chantix PO 1 mg BID ATTILA Administration - Exam Eye: PERRL, anicteric sclera Heart: RRR, no murmur, no gallops, no rubs Respiratory: no rales, no ronchi, normal chest expansion, no tachypnea, wheezes (+ mild expiratory wheeze) Gastrointestinal: soft, non-tender, non-distended, normal bowel sounds, no palpable masses, no splenomegaly Extremities: no cyanosis, 1+ LE edema (bilateraly mild erythema of both lower extremties up to the knees. Pulses are palpable in both feet.) Skin: negative: normal turgor (+ ulcer on the left ankle), no lesions, no rashes , tenting Hosp A/P (1) Cellulitis of left leg Code(s): L03.116 - CELLULITIS OF LEFT LOWER LIMB Status: Acute (2) Acute on chronic diastolic HF (heart failure) Code(s): I50.33 - ACUTE ON CHRONIC DIASTOLIC (CONGESTIVE) HEART FAILURE Status : Acute (3) COPD without exacerbation Code(s): J44.9 - CHRONIC OBSTRUCTIVE PULMONARY DISEASE, UNSPECIFIED Status: Acute (4) DM type 2 (diabetes mellitus, type 2) Status: Chronic Qualifiers: Diabetes mellitus assisted insulin use: without assisted use Diabetes mellitus complication status: without complication Qualified Code(s): E11.9 - Type 2 diabetes mellitus without complications (5) HTN (hypertension) Code(s): I10 - ESSENTIAL (PRIMARY) HYPERTENSION Status: Chronic Qualifiers: Hypertension type: essential hypertension Qualified Code(s): I10 - Essential (primary) hypertension - Plan * Cellulitis- slowly improving- will switch to oral antibotics in the AM * Acute on chronic diastolic heart failure- improved- will consider switch to oral Lasix tomorrow as well * HTN- blood pressure is controlled * DM- blood glucose is stable * Hopefully home soon
[2018-09-06] MEDS: cefTRIAXone\\ROCEPHIN 2 GM in Sodium Chloride 0.9% 100 ML IVPB SCH (16:45)
[2018-09-06] MEDS: HYDROcodone/Acetaminophen 5/325 mg Tablet PO PRN ×2 (16:45→20:35)
[2018-09-06] MEDS: Gabapentin 300 MG CAP PO SCH (20:35)
[2018-09-07] MEDS: HYDROcodone/Acetaminophen 5/325 mg Tablet PO PRN ×6 (00:16→22:19)
[2018-09-07] MEDS: Furosemide 40 MG/4 ML VIAL SLOW IVP SCH (05:56)
[2018-09-07] MEDS: Ketorolac Tromethamine 10 MG TAB PO SCH (05:59)
[2018-09-07] MEDS: Mometasone/Formoterol 120 PUFF INHALER INH SCH ×2 (07:17→19:14)
[2018-09-07] MEDS ORDERED: Cephalexin 250 MG CAP PO SCH (08:00)
[2018-09-07] MEDS: Furosemide 20 MG TAB PO SCH ×2 (08:07→14:57)
[2018-09-07] MEDS: Varenicline Tartrate 0.5 MG TAB PO SCH ×2 (08:27→21:40)
[2018-09-07] MEDS: tiZANidine HCl 4 MG TAB PO SCH (08:28)
[2018-09-07] MEDS: Valsartan 80 MG TAB PO SCH (08:28)
[2018-09-07] MEDS: Calcium Carbonate 600 MG TAB PO SCH ×2 (08:28→21:40)
[2018-09-07] MEDS: Famotidine 20 MG TAB PO SCH ×2 (08:29→21:41)
[2018-09-07 09:18] LABS: Anion Gap 14 mmol/L (10-20); BUN (Urea Nitrogen) 21 mg/dL (9.8-20.1); Calc. Creatinine Clearance 200 mL/min (70-130); Calcium 9.8 mg/dL (7.8-10.44); Carbon Dioxide 29 mmol/L (22-29); Chloride 98 mmol/L (98-107); Estimated GFR-MDRD Greater than 90; Glucose 90 mg/dL (70-105); Sodium 137 mmol/L (136-145)
[2018-09-07 09:42] LABS: #Basophils 0.1 thou/uL (0.0-0.2); #Eosinphils 0.1 thou/uL (0.0-0.7); #Lymphocytes 0.9 thou/uL (1.20-3.40); #Monocytes 0.4 thou/uL (0.11-0.59); #Neutrophils 2.2 thou/uL (1.40-6.50); %Basophils 2.1 % (0.0-1.0); %Eosinophils 2.5 % (0.0-10.0); %Lymphocytes 24.4 % (21.0-51.0); %Monocytes 9.8 % (0.0-10.0); %Neutrophils 61.2 % (42.0-75.0); Mean Corpuscular HGB CONC 32.6 g/dL (32.0-36.0); Mean Corpuscular Hemoglobin 26.6 pg (27.0-31.0); Mean Corpuscular Volume 81.6 fL (78.0-98.0); Mean Platelet Volume 8.6 fL (7.4-10.4); Platelet Count 149 thou/uL (130-400); RBC Distribution Width 16.2 % (11.5-14.5); Red Blood Cell (RBC) Count 4.88 mill/uL (4.20-5.40); White Blood Cell (WBC) Count 3.6 thou/uL (4.8-10.8)
[2018-09-07] MEDS: Cephalexin 250 MG CAP PO SCH ×3 (12:59→23:20)
[2018-09-07 14:44] VITALS: BMI 44.3
[2018-09-07] MEDS: Naproxen 500 MG TAB PO SCH (16:10)
--- NOTE | 2018-09-07 18:43 | PDOC.HOSPP ---
- Subjective Subjective: Ms. Terrazas was seen today at approximately 10:45AM in follow-up of cellulitis of the lower extremities. She does not have any new complaints. She says she is weak when trying to walk. - Objective Vital Signs & Weight: Vital Signs (12 hours) Temp Pulse Resp BP Pulse Ox 09/07/18 16:11 97.9 F 59 L 16 164/72 H 96 09/07/18 12:54 97.7 F 73 17 139/68 96 09/07/18 08:00 98 09/07/18 07:43 97.6 F 60 16 152/66 H 98 09/07/18 07:17 76 16 Weight Admit Weight 310 lb 4 oz Weight 291 lb 6.4 oz I&O: 09/06/18 09/07/18 09/08/18 06:59 06:59 06:59 Intake Total 1320 2000 Output Total 6000 6930 Balance -0655 -9538 Result Diagrams: 09/07/18 08:33 09/07/18 08:33 ROS - Review of Systems All systems: All other ROS were reviewed and found negative. - Medication Medications: Active Medications Generic Name Dose Route Start Last Admin Trade Name Freq PRN Reason Stop Dose Admin Acetaminophen 650 mg 09/01/18 21:35 09/01/18 23:11 Tylenol PO 650 mg Q4H PRN Administration Fever > 101 Acetaminophen/Codeine Phosphate 1 tab 09/02/18 09:45 09/06/18 12:54 Tylenol #3 PO 1 tab Q4H PRN Administration Mild-Moderate Pain (1-5) Hydrocodone Bitart/Acetaminophen 1 tab 09/06/18 16:07 09/07/18 18:08 [place] 5/325 PO 1 tab Q4H PRN Administration Moderate to Severe Pain (6-10) Albuterol Sulfate 2 puff 09/02/18 11:45 09/04/18 19:20 Proventil Hfa INH 2 puff PRN PRN Administration Wheezing Calcium Carbonate 600 mg 09/02/18 21:00 09/07/18 08:28 Caltrate PO 600 mg BID ATTIAL Administration Cephalexin 500 mg 09/07/18 12:00 09/07/18 18:08 Keflex PO 500 mg Q6HR ATTILA Administration Cholecalciferol 1,000 units 09/03/18 09:00 09/07/18 08:28 Vitamin D3 PO 1,000 units DAILY ATTILA Administration Famotidine 20 mg 09/03/18 21:00 09/07/18 08:29 Pepcid PO 20 mg Q12HR ATTILA Administration Furosemide 40 mg 09/07/18 09:00 09/07/18 14:57 Lasix PO 40 mg 0900,1400 ATTILA Administration Gabapentin 600 mg 09/02/18 21:00 09/06/18 20:35 Neurontin PO 600 mg HS ATTILA Administration Glipizide 5 mg 09/03/18 09:00 09/07/18 08:28 Glucotrol Xl PO 5 mg DAILY ATTILA Administration Mometasone Furoate/Formoterol Fumar 2 puff 09/02/18 18:30 09/07/18 07:17 Dulera 200 Mcg/5 Mcg Inhaler INH 2 puff BID-RT ATTILA Administration Naproxen 500 mg 09/07/18 17:00 09/07/18 16:10 Naprosyn PO Not Given BID-WM ATTILA Ondansetron HCl 4 mg 09/01/18 21:35 09/03/18 07:39 Zofran Odt PO 4 mg Q6H PRN Administration Nausea/Vomiting Sertraline HCl 100 mg 09/03/18 09:00 09/07/18 08:29 Zoloft PO 100 mg DAILY ATTILA Administration Sodium Chloride 10 ml 09/01/18 21:00 09/07/18 08:36 Flush - Normal Saline IVF 10 ml Q12HR ATTILA Administration Sodium Chloride 10 ml 09/01/18 19:44 09/07/18 05:58 Flush - Normal Saline IVF 10 ml PRN PRN Administration Saline Flush Tizanidine HCl 2 mg 09/03/18 09:00 09/07/18 08:28 Zanaflex PO 2 mg QAM ATTILA Administration Valsartan 80 mg 09/03/18 09:00 09/07/18 08:28 Diovan PO 80 mg DAILY ATTILA Administration Varenicline 1 mg 09/02/18 21:00 09/07/18 08:27 Chantix PO 1 mg BID ATTILA Administration - Exam Eye: PERRL, anicteric sclera Heart: RRR, no murmur, no gallops, no rubs Respiratory: CTAB, no wheezes, no rales, no ronchi, normal chest expansion Gastrointestinal: soft, non-tender, non-distended, normal bowel sounds Extremities: 1+ LE edema (edema and mild erythema in both lower extremities left >right) Hosp A/P (1) Cellulitis of left leg Code(s): L03.116 - CELLULITIS OF LEFT LOWER LIMB Status: Acute (2) Acute on chronic diastolic HF (heart failure) Code(s): I50.33 - ACUTE ON CHRONIC DIASTOLIC (CONGESTIVE) HEART FAILURE Status : Acute (3) COPD without exacerbation Code(s): J44.9 - CHRONIC OBSTRUCTIVE PULMONARY DISEASE, UNSPECIFIED Status: Acute (4) DM type 2 (diabetes mellitus, type 2) Status: Chronic Qualifiers: Diabetes mellitus alf insulin use: without alf use Diabetes mellitus complication status: without complication Qualified Code(s): E11.9 - Type 2 diabetes mellitus without complications (5) HTN (hypertension) Code(s): I10 - ESSENTIAL (PRIMARY) HYPERTENSION Status: Chronic Qualifiers: Hypertension type: essential hypertension Qualified Code(s): I10 - Essential (primary) hypertension - Plan * Cellulitis of the left lower extremity- improving- will change to Keflex from Rocephin * Acute on chronic diastolic heart failure- compensated * DM- blood glucose is stable * HTN- blood pressure is a bit labile- will monitor * Deconditioning- continue PT/OT, and await Rehab screen
[2018-09-07] MEDS: Gabapentin 300 MG CAP PO SCH (21:40)
[2018-09-08] MEDS: Ondansetron ODT 4 MG TAB PO PRN ×3 (00:03→22:23)
[2018-09-08] MEDS: HYDROcodone/Acetaminophen 5/325 mg Tablet PO PRN ×6 (02:09→22:23)
[2018-09-08] MEDS: Cephalexin 250 MG CAP PO SCH ×3 (05:50→21:56)
[2018-09-08] MEDS: Mometasone/Formoterol 120 PUFF INHALER INH SCH ×2 (07:20→19:15)
[2018-09-08] MEDS: Naproxen 500 MG TAB PO SCH ×2 (10:04→16:17)
[2018-09-08] MEDS: tiZANidine HCl 4 MG TAB PO SCH (10:07)
[2018-09-08] MEDS: Calcium Carbonate 600 MG TAB PO SCH ×2 (10:08→21:56)
[2018-09-08] MEDS: Varenicline Tartrate 0.5 MG TAB PO SCH ×2 (10:08→21:57)
[2018-09-08] MEDS: Famotidine 20 MG TAB PO SCH ×2 (10:09→21:56)
[2018-09-08] MEDS: Valsartan 80 MG TAB PO SCH (10:09)
[2018-09-08] MEDS: Furosemide 20 MG TAB PO SCH ×2 (10:09→16:11)
--- NOTE | 2018-09-08 15:45 | PDOC.HOSPP ---
- Subjective Subjective: Ms. Terrazas was seen today in follow-up of cellulitis as well as CHF exacerbation. She does not have any new complaints. - Objective Vital Signs & Weight: Vital Signs (12 hours) Temp Pulse Pulse Pulse Resp BP BP 09/08/18 11:37 97.1 F L 95 16 09/08/18 10:48 92 61 143/65 H 140/65 09/08/18 07:46 97.8 F 62 16 09/08/18 07:20 78 14 09/08/18 04:00 98.7 F 64 20 BP Pulse Ox 09/08/18 11:37 143/65 H 98 09/08/18 10:48 09/08/18 07:46 176/77 H 96 09/08/18 07:20 95 09/08/18 04:00 156/82 H 95 Weight Admit Weight 310 lb 4 oz Weight 293 lb I&O: 09/07/18 09/08/18 09/09/18 06:59 06:59 06:59 Intake Total 1999 1750 Output Total 6978 4472 Balance -8043 -459 Result Diagrams: 09/07/18 08:33 09/07/18 08:33 ROS - Review of Systems All systems: All other ROS were reviewed and found negative. - Medication Medications: Active Medications Generic Name Dose Route Start Last Admin Trade Name Freq PRN Reason Stop Dose Admin Acetaminophen 650 mg 09/01/18 21:35 09/01/18 23:11 Tylenol PO 650 mg Q4H PRN Administration Fever > 101 Acetaminophen/Codeine Phosphate 1 tab 09/02/18 09:45 09/06/18 12:54 Tylenol #3 PO 1 tab Q4H PRN Administration Mild-Moderate Pain (1-5) Hydrocodone Bitart/Acetaminophen 1 tab 09/06/18 16:07 09/08/18 14:33 [place] 5/325 PO 1 tab Q4H PRN Administration Moderate to Severe Pain (6-10) Albuterol Sulfate 2 puff 09/02/18 11:45 09/04/18 19:20 Proventil Hfa INH 2 puff PRN PRN Administration Wheezing Calcium Carbonate 600 mg 09/02/18 21:00 09/08/18 10:08 Caltrate PO 600 mg BID ATTILA Administration Cephalexin 500 mg 09/07/18 12:00 09/08/18 12:17 Keflex PO 500 mg Q6HR ATTILA Administration Cholecalciferol 1,000 units 09/03/18 09:00 09/08/18 10:08 Vitamin D3 PO 1,000 units DAILY ATTILA Administration Famotidine 20 mg 09/03/18 21:00 09/08/18 10:09 Pepcid PO 20 mg Q12HR ATTILA Administration Furosemide 40 mg 09/07/18 09:00 09/08/18 10:09 Lasix PO 40 mg 0900,1400 ATTILA Administration Gabapentin 600 mg 09/02/18 21:00 09/07/18 21:40 Neurontin PO 600 mg HS ATTILA Administration Glipizide 5 mg 09/03/18 09:00 09/08/18 10:09 Glucotrol Xl PO 5 mg DAILY ATTILA Administration Mometasone Furoate/Formoterol Fumar 2 puff 09/02/18 18:30 09/08/18 07:20 Dulera 200 Mcg/5 Mcg Inhaler INH 2 puff BID-RT ATTILA Administration Naproxen 500 mg 09/07/18 17:00 09/08/18 10:04 Naprosyn PO Not Given BID-WM ATTILA Ondansetron HCl 4 mg 09/01/18 21:35 09/08/18 12:22 Zofran Odt PO 4 mg Q6H PRN Administration Nausea/Vomiting Sertraline HCl 100 mg 09/03/18 09:00 09/08/18 10:08 Zoloft PO 100 mg DAILY ATTILA Administration Sodium Chloride 10 ml 09/01/18 21:00 09/08/18 10:10 Flush - Normal Saline IVF 10 ml Q12HR ATTILA Administration Sodium Chloride 10 ml 09/01/18 19:44 09/07/18 05:58 Flush - Normal Saline IVF 10 ml PRN PRN Administration Saline Flush Tizanidine HCl 2 mg 09/03/18 09:00 09/08/18 10:07 Zanaflex PO 2 mg QAM ATTILA Administration Valsartan 80 mg 09/03/18 09:00 09/08/18 10:09 Diovan PO 80 mg DAILY ATTILA Administration Varenicline 1 mg 09/02/18 21:00 09/08/18 10:08 Chantix PO 1 mg BID ATTILA Administration - Exam Eye: PERRL, anicteric sclera Heart: RRR, no murmur, no gallops, no rubs Respiratory: CTAB, no wheezes, no rales, no ronchi Gastrointestinal: soft, non-tender, non-distended, normal bowel sounds, no palpable masses, no hepatomegaly Extremities: no cyanosis, no clubbing, no edema Hosp A/P (1) Cellulitis of left leg Code(s): L03.116 - CELLULITIS OF LEFT LOWER LIMB Status: Acute (2) Acute on chronic diastolic HF (heart failure) Code(s): I50.33 - ACUTE ON CHRONIC DIASTOLIC (CONGESTIVE) HEART FAILURE Status : Acute (3) COPD without exacerbation Code(s): J44.9 - CHRONIC OBSTRUCTIVE PULMONARY DISEASE, UNSPECIFIED Status: Acute (4) DM type 2 (diabetes mellitus, type 2) Status: Chronic Qualifiers: Diabetes mellitus long chain beamer insulin use: without fdc use Diabetes mellitus complication status: without complication Qualified Code(s): E11.9 - Type 2 diabetes mellitus without complications (5) HTN (hypertension) Code(s): I10 - ESSENTIAL (PRIMARY) HYPERTENSION Status: Chronic Qualifiers: Hypertension type: essential hypertension Qualified Code(s): I10 - Essential (primary) hypertension - Plan * Cellulitis of the left lower extremity- continue Keflex, but with change dosing to BID * Acute on chronic diastolic heart failure- better compensated * HTN- blood pressure is a bit elevated- will add a low dose PRICE- I since she id diabetic * DM- blood glucose is stable * Decondition- awaiting Rehab
[2018-09-08] MEDS: Gabapentin 300 MG CAP PO SCH (21:57)
[2018-09-09] MEDS: HYDROcodone/Acetaminophen 5/325 mg Tablet PO PRN ×5 (03:01→21:28)
[2018-09-09] MEDS: Mometasone/Formoterol 120 PUFF INHALER INH SCH ×2 (07:25→19:13)
[2018-09-09] MEDS: Valsartan 80 MG TAB PO SCH (08:43)
[2018-09-09] MEDS: Cephalexin 250 MG CAP PO SCH ×2 (08:43→20:08)
[2018-09-09] MEDS: Naproxen 500 MG TAB PO SCH ×2 (08:43→17:17)
[2018-09-09] MEDS: Varenicline Tartrate 0.5 MG TAB PO SCH ×2 (08:44→20:08)
[2018-09-09] MEDS: Calcium Carbonate 600 MG TAB PO SCH ×2 (08:44→20:08)
[2018-09-09] MEDS: tiZANidine HCl 4 MG TAB PO SCH (08:44)
[2018-09-09] MEDS: Famotidine 20 MG TAB PO SCH ×2 (08:45→20:09)
[2018-09-09] MEDS: Furosemide 20 MG TAB PO SCH ×2 (08:45→13:48)
--- NOTE | 2018-09-09 16:38 | PDOC.HOSPP ---
- Subjective Subjective: Ms. Terrazas was seen today in follow-up of Cellulitis and CHF exacerbation at approximately 10:45AM. She does not have any new complaints. - Objective Vital Signs & Weight: Vital Signs (12 hours) Temp Pulse Resp BP Pulse Ox 09/09/18 12:00 98.0 F 61 18 134/61 98 09/09/18 07:25 71 14 98 09/09/18 07:14 98.2 F 65 18 141/77 H 98 Weight Admit Weight 310 lb 4 oz Weight 298 lb 1.6 oz I&O: 09/08/18 09/09/18 09/10/18 06:59 06:59 06:59 Intake Total 1750 1700 Output Total 2625 2100 Balance -875 -400 Result Diagrams: 09/07/18 08:33 09/07/18 08:33 ROS - Review of Systems All systems: All other ROS were reviewed and found negative. - Medication Medications: Active Medications Generic Name Dose Route Start Last Admin Trade Name Freq PRN Reason Stop Dose Admin Acetaminophen 650 mg 09/01/18 21:35 09/01/18 23:11 Tylenol PO 650 mg Q4H PRN Administration Fever > 101 Acetaminophen/Codeine Phosphate 1 tab 09/02/18 09:45 09/06/18 12:54 Tylenol #3 PO 1 tab Q4H PRN Administration Mild-Moderate Pain (1-5) Hydrocodone Bitart/Acetaminophen 1 tab 09/06/18 16:07 09/09/18 12:32 [place] 5/325 PO 1 tab Q4H PRN Administration Moderate to Severe Pain (6-10) Albuterol Sulfate 2 puff 09/02/18 11:45 09/04/18 19:20 Proventil Hfa INH 2 puff PRN PRN Administration Wheezing Calcium Carbonate 600 mg 09/02/18 21:00 09/09/18 08:44 Caltrate PO 600 mg BID ATTILA Administration Cephalexin 500 mg 09/08/18 21:00 09/09/18 08:43 Keflex PO 500 mg BID ATTILA Administration Cholecalciferol 1,000 units 09/03/18 09:00 09/09/18 08:45 Vitamin D3 PO 1,000 units DAILY ATTILA Administration Famotidine 20 mg 09/03/18 21:00 09/09/18 08:45 Pepcid PO 20 mg Q12HR ATTILA Administration Furosemide 40 mg 09/07/18 09:00 09/09/18 13:48 Lasix PO 40 mg 0900,1400 ATTILA Administration Gabapentin 600 mg 09/02/18 21:00 09/08/18 21:57 Neurontin PO 600 mg HS ATTILA Administration Glipizide 5 mg 09/03/18 09:00 09/09/18 08:45 Glucotrol Xl PO 5 mg DAILY ATITLA Administration Mometasone Furoate/Formoterol Fumar 2 puff 09/02/18 18:30 09/09/18 07:25 Dulera 200 Mcg/5 Mcg Inhaler INH 2 puff BID-RT ATTILA Administration Naproxen 500 mg 09/07/18 17:00 09/09/18 08:43 Naprosyn PO Not Given BID-WM ATTILA Ondansetron HCl 4 mg 09/01/18 21:35 09/08/18 22:23 Zofran Odt PO 4 mg Q6H PRN Administration Nausea/Vomiting Sertraline HCl 100 mg 09/03/18 09:00 09/09/18 08:45 Zoloft PO 100 mg DAILY ATTILA Administration Sodium Chloride 10 ml 09/01/18 21:00 09/09/18 08:45 Flush - Normal Saline IVF 10 ml Q12HR ATTILA Administration Sodium Chloride 10 ml 09/01/18 19:44 09/07/18 05:58 Flush - Normal Saline IVF 10 ml PRN PRN Administration Saline Flush Tizanidine HCl 2 mg 09/03/18 09:00 09/09/18 08:44 Zanaflex PO 2 mg QAM ATTILA Administration Valsartan 80 mg 09/03/18 09:00 09/09/18 08:43 Diovan PO 80 mg DAILY ATTILA Administration Varenicline 1 mg 09/02/18 21:00 09/09/18 08:44 Chantix PO 1 mg BID ATTILA Administration - Exam Eye: PERRL, anicteric sclera Heart: RRR, no murmur, no gallops, no rubs, normal peripheral pulses Respiratory: CTAB, no wheezes, no rales, no ronchi, normal chest expansion Gastrointestinal: soft, non-tender, non-distended, normal bowel sounds Extremities: 1+ LE edema (+ mild erythema in both lower extremities, which is improving) Hosp A/P (1) Cellulitis of left leg Code(s): L03.116 - CELLULITIS OF LEFT LOWER LIMB Status: Acute (2) Acute on chronic diastolic HF (heart failure) Code(s): I50.33 - ACUTE ON CHRONIC DIASTOLIC (CONGESTIVE) HEART FAILURE Status : Acute (3) COPD without exacerbation Code(s): J44.9 - CHRONIC OBSTRUCTIVE PULMONARY DISEASE, UNSPECIFIED Status: Acute (4) DM type 2 (diabetes mellitus, type 2) Status: Chronic Qualifiers: Diabetes mellitus prison insulin use: without prison use Diabetes mellitus complication status: without complication Qualified Code(s): E11.9 - Type 2 diabetes mellitus without complications (5) HTN (hypertension) Code(s): I10 - ESSENTIAL (PRIMARY) HYPERTENSION Status: Chronic Qualifiers: Hypertension type: essential hypertension Qualified Code(s): I10 - Essential (primary) hypertension - Plan * Cellulitis- continue Keflex * Acute on chronic diastolic heart failure- compensated * HTN- blood pressure is stable * DM- blood glucose is stable
[2018-09-09] MEDS: Gabapentin 300 MG CAP PO SCH (20:08)
[2018-09-10] MEDS: HYDROcodone/Acetaminophen 5/325 mg Tablet PO PRN ×4 (01:22→13:46)
[2018-09-10] MEDS: Mometasone/Formoterol 120 PUFF INHALER INH SCH (06:56)
[2018-09-10] MEDS: Naproxen 500 MG TAB PO SCH (08:08)
[2018-09-10] MEDS: Cephalexin 250 MG CAP PO SCH (08:21)
[2018-09-10] MEDS: Varenicline Tartrate 0.5 MG TAB PO SCH (08:21)
[2018-09-10] MEDS: Calcium Carbonate 600 MG TAB PO SCH (08:22)
[2018-09-10] MEDS: Furosemide 20 MG TAB PO SCH ×2 (08:22→13:46)
[2018-09-10] MEDS: Valsartan 80 MG TAB PO SCH (08:22)
[2018-09-10] MEDS: Famotidine 20 MG TAB PO SCH (08:22)
[2018-09-10] MEDS: tiZANidine HCl 4 MG TAB PO SCH (08:22)
[2018-09-10 13:39] VITALS: BP 146/69; TEMP 99.6
--- NOTE | 2018-09-10 15:19 | DIS ---
DATE OF ADMISSION: 09/01/2018 DATE OF DISCHARGE: 09/10/2018 DISCHARGE DIAGNOSES: 1. Left lower extremity cellulitis, improved. 2. Acute on chronic diastolic congestive heart failure with ejection fraction 50% to 55%. 3. Chronic obstructive pulmonary disease without exacerbation. 4. Diabetes mellitus, type 2. 5. Hypertension, stable. 6. Deconditioning. CONSULTATIONS: Dr. Aristeo Kat with Infectious Disease Service. PERTINENT LABORATORY AND X-RAY FINDINGS: Lactic acid level 1.0. Magnesium level 1.5. BNP 849, previously noted 1435 on 08/22/2018. CBC showed a white blood cell count ranging between 3.6 to 5.0. Urine drug screen dated 09/01/2018, positive for opiates and benzodiazepines. Sputum culture dated 09/01/2018, showed normal respiratory tony. Blood cultures 1/2 positive on 09/01/2018, for alpha-hemolytic Streptococcus species and presumptive Micrococcus likely contaminant. Portable chest x-ray dated 09/01/2018, showed bilateral vascular prominence with interstitial edema. Bilateral lower extremity venous Doppler study dated 09/01/2018, showed no evidence for DVT. HOSPITAL COURSE: The patient was initially admitted with increasing left lower extremity redness, pain with associated shortness of breath, and decreased ambulatory status. The patient was diagnosed initially with cellulitis of the left lower extremity and placed on IV Zosyn. The patient's initial lactic acid level was 1.0, and the patient continued on antibiotic therapy throughout the hospital course. The patient had overall improvement in the left lower extremity erythema with antibiotic therapy. The patient also was treated with Lasix due to elevated BNP in concern for congestive heart failure exacerbation. The patient with known diastolic dysfunction with preserved ejection fraction of 50% to 55%. The patient was evaluated by the Infectious Disease Service due to left lower extremity cellulitis with recommendations for continued antibiotic therapy. The patient transitioned from IV Zosyn to Keflex, currently tolerating without difficulty. Due to the patient's overall deconditioned status, the patient was evaluated by the Physical Therapy Service and deemed an appropriate candidate for ongoing rehabilitation. The patient was approved to transfer to [facility] on 09/10/2018. I have examined the patient at the time of discharge and discussed followup instructions. The patient verbalized understanding and in agreement and ready for discharge on 09/10/2018. DISCHARGE MEDICATIONS: 1. ProAir HFA 2 puffs inhaled q.6 hours p.r.n. 2. Symbicort 160/4.5 one puff inhaled b.i.d. 3. Gabapentin 600 mg p.o. at bedtime. 4. Glipizide 5 mg p.o. daily. 5. Metformin 500 mg p.o. b.i.d. 6. Sertraline 100 mg p.o. daily. 7. Tizanidine 2 mg p.o. q.a.m. 8. Chantix 1 mg p.o. b.i.d. 9. Tylenol No. 3 one tablet p.o. q.4 to 6 hours p.r.n. pain. 10. Calcium carbonate 600 mg p.o. b.i.d. 11. Keflex 500 mg p.o. b.i.d. until 09/16/2018. 12. Vitamin D3 of 1000 units p.o. daily. 13. Lasix 40 mg p.o. b.i.d. 14. Naproxen 500 mg p.o. b.i.d. 15. Valsartan 80 mg p.o. daily. FOLLOWUP: The patient to follow up with her primary care provider, Dr. Andrey Benedict on 09/16/2018, at 2:15 p.m. The patient may follow up with Dr. Aristeo Matthews with [facility] on 09/30/2018 at 1:45 p.m. CONDITION ON DISCHARGE: Fair. ACTIVITY: Ad-susan. Rolling walker with standby assistance. DIET: Heart healthy with fluid restriction of 1.5 L per 24 hours. CODE STATUS: Full. DISPOSITION: Discharged to [facility] on 09/10/2018. TIME SPENT: Total time preparing and coordinating discharge, 35 minutes. Job ID: [id number]
== END 2018-09-10 14:50 | DRG 602 ==
LOC: ERS 13:36 → OBSVTOIN 15:31 → 2SW 15:31 → 2NO 09-03 11:52
PROVIDERS: ADMIT Internal Medicine; ATTEND Internal Medicine
DX: L03.116 Cellulitis of left lower limb (principal); J96.21 Acute and chronic respiratory failure with hypoxia; I50.33 Acute on chronic diastolic (congestive) heart failure; Z68.41 Body mass index [BMI] 40.0-44.9, adult; E11.9 Type 2 diabetes mellitus without complications; I11.0 Hypertensive heart disease with heart failure; E66.01 Morbid (severe) obesity due to excess calories; F17.210 Nicotine dependence, cigarettes, uncomplicated; E55.9 Vitamin D deficiency, unspecified; J44.9 Chronic obstructive pulmonary disease, unspecified; Z85.41 Personal history of malignant neoplasm of cervix uteri; Z87.01 Personal history of pneumonia (recurrent); Z90.49 Acquired absence of other specified parts of digestive tract; Z90.710 Acquired absence of both cervix and uterus; Z79.51 Long term (current) use of inhaled steroids; Z79.84 Long term (current) use of oral hypoglycemic drugs
CPT/HCPCS: 36415; 71045; 80048; 80053; 80306; 80307; 81003; 82550; 82805; 83605; 83690; 83735; 83880; 84484; 85025; 85379; 87040; 87070; 87149; 87205; 93005; 93798; 93970; 96365; 96367; 96372; 96375; 99203; G0463; J0696; J1650; J1940; J2543; J3010; J3370; J3475; J3490; Q0162; S0028

== ENCOUNTER 2019-02-05 16:39 | Inpatient (IN) | payer OTHER ==
[2019-02-05 17:55] LABS: #Eosinphils 0.1 thou/uL (0.0-0.7); #Lymphocytes 0.8 thou/uL (1.20-3.40); #Monocytes 0.3 thou/uL (0.11-0.59); %Basophils 0.7 % (0.0-1.0); %Eosinophils 2.6 % (0.0-10.0); %Lymphocytes 19.1 % (21.0-51.0); %Monocytes 7.6 % (0.0-10.0); %Neutrophils 69.9 % (42.0-75.0); Hemoglobin 11.9 g/dL (12.0-16.0); Mean Corpuscular HGB CONC 32.2 g/dL (32.0-36.0); Mean Corpuscular Hemoglobin 28.3 pg (27.0-31.0); Mean Corpuscular Volume 88.1 fL (78.0-98.0); Mean Platelet Volume 8.1 fL (7.4-10.4); Platelet Count 127 thou/uL (130-400); RBC Distribution Width 16.3 % (11.5-14.5); Red Blood Cell (RBC) Count 4.21 mill/uL (4.20-5.40); White Blood Cell (WBC) Count 4.4 thou/uL (4.8-10.8)
--- NOTE | 2019-02-05 18:03 | RAD ---
Portable frontal chest radiograph: 02/05/2019 COMPARISON: 09/01/2018 HISTORY: Shortness of breath FINDINGS: Stable prominence of the cardiac silhouette. There is pulmonary vascular congestion. No pne umothorax. Left lung clear. There is a moderate-sized pleural effusion on the right, slightly more conspicuous than on the 09/01/2018 examination. There is obscuration of the right heart border in the right hemidiaphragm. IMPRESSION: Increased density in the right base suggesting a moderate-sized right pleural effusion. R ight basilar infectious pneumonitis or aspiration cannot be excluded. Follow-up imaging following treatment to document resolution advised.
[2019-02-05 18:15] LABS: ALT (SGPT) 20 U/L (8-55); AST (SGOT) 30 U/L (5-34); Albumin 3.3 g/dL (3.5-5.0); Alkaline Phosphatase 235 U/L (40-110); Anion Gap 13 mmol/L (10-20); BUN (Urea Nitrogen) 13 mg/dL (9.8-20.1); Bilirubin, Total 0.7 mg/dL (0.2-1.2); Calc. Creatinine Clearance 0 mL/min (70-130); Carbon Dioxide 25 mmol/L (22-29); Chloride 108 mmol/L (98-107); Estimated GFR-MDRD 83; Globulin 3.8 g/dL (2.4-3.5); Glucose 143 mg/dL (70-105); Potassium 3.9 mmol/L (3.5-5.1); Protein, Total 7.1 g/dL (6.0-8.3); Sodium 142 mmol/L (136-145)
[2019-02-05] MEDS ORDERED: Furosemide 100 MG/10 ML VIAL ONE (19:12)
[2019-02-05] MEDS ORDERED: methylPREDNISolone Sod Succ/PF 125 MG/2 ML VIAL ONE (19:12)
--- NOTE | 2019-02-05 20:38 | PDOC.FPRHP ---
- History of Present Illness Chief Complaint: Dyspnea History of Present Illness: Pt is a 54 yo female with PMH significant for DMII, CHF, COPD, HTN, back pain, tobacco abuse who presents for dyspnea over the previous 2 days She has history of CHF and COPD exacerbations. She increased her nebulizer use to 3 times per day and 2 nebs in the ED. She states she had mild relief from the nebulizer treatments. Endorsed mild cough, little to no change in sputum production, denied fever, chills. She has had difficulty lying flat without the assistance of pillows. She becomes short of breath, increased coughing with lying flat. She denies any heart history other than CHF, followed by Dr. Matthews. Requires 2 L O2 at home. ED Course: In the ED she was found to have a pleural effusion on the R Lung. She was given lasix 80 mg IV in the ED. She received multiple courses of nebulizer treatments. BNP elevated, d-dimer elevated. CTA did not reveal PE. O2 sats were 100% on home 2 L. - Allergies/Adverse Reactions Allergies Allergy/AdvReac Type Severity Reaction Status Date / Time latex Allergy Hives Verified 08/22/18 20:07 morphine AdvReac Emesis Verified 08/22/18 20:06 TIDE LAUNDRY DETERGENT Allergy Hives Uncoded 08/22/18 20:08 - Home Medications Medication Instructions Recorded Confirmed Type RX: Albuterol Sulfate [Proair HFA] 2 puff INH PRN PRN 08/04/18 02/05/19 History RX: Sertraline HCl 100 mg PO DAILY 08/04/18 02/05/19 History RX: Varenicline Tartrate [Chantix] 1 mg PO BID 08/04/18 02/05/19 History RX: glipiZIDE [glipiZIDE ER] 5 mg PO DAILY 08/04/18 02/05/19 History RX: Budesonide-Formoterol 1 puff INH BID 08/22/18 02/05/19 History [Symbicort 160-4.5] RX: tiZANidine HCl [Tizanidine HCl] 4 mg PO HS 08/22/18 02/05/19 History Acetaminophen ER (8hr) [TYLENOL ER 3 tab PO BID 02/05/19 02/05/19 History (8hr ARTHRITIS PAIN)] Albuterol Sulfate [Albuterol 0.63 mg NEB Q4HR PRN 02/05/19 02/05/19 History Sulfate Neb] RX: Furosemide [Lasix] 40 mg PO DAILY 02/05/19 02/05/19 History - History PMHx:DMII, CHF, COPD, HTN, back pain, tobacco abuse PSHx: hysterectomy for cervical/uterine cancer FHx: non-contributory Social: 1 ppd, denies drugs/alcohol, lives with son and ex-boyfriend - Review of Systems General: denies: fever/chills, weight/appetite/sleep changes ENT: denies: nasal congestion, rhinorrhea Respiratory: reports: cough, shortness of breath. denies: congestion Cardiovascular: denies: chest pain, palpitation Gastrointestinal: denies: nausea, vomiting, diarrhea, constipation Genitourinary: denies: incontinence, dysuria Skin: denies: rashes, lesions Neurological: denies: syncope - Vital signs BP: 165/74 HR: 76 RR: 24 Tmax: 97.9 Pox: 100% on 2L NC Wt: 122 kg - Physical Exam Constitutional: NAD, awake, alert and oriented Neck: supple, FROM Heart: RRR, normal S1/S2 -Heart: Mild LE edema -Lungs: Did not appreciate wheezing bilaterally, little to no air movement in R mid- lung to base Abdomen: soft, non-tender Neurological: no focal deficit, CN II-XII intact Skin: no rash/lesions Heme/Lymphatic: no purpura, no petechia Psychiatric: good judgment and insight FMR H&P: Results - Labs Result Diagrams: 02/06/19 04:11 02/06/19 04:11 Lab results: WBC 4.4 thou/uL (4.8-10.8) L 02/05/19 17:42 Hgb 11.9 g/dL (12.0-16.0) L 02/05/19 17:42 Hct 37.1 % (36.0-47.0) 02/05/19 17:42 MCV 88.1 fL (78.0-98.0) 02/05/19 17:42 Plt Count 127 thou/uL (130-400) L 02/05/19 17:42 Neutrophils % 69.9 % (42.0-75.0) 02/05/19 17:42 Sodium 142 mmol/L (136-145) 02/05/19 17:42 Potassium 3.9 mmol/L (3.5-5.1) 02/05/19 17:42 Chloride 108 mmol/L (98-107) H 02/05/19 17:42 Carbon Dioxide 25 mmol/L (22-29) 02/05/19 17:42 BUN 13 mg/dL (9.8-20.1) 02/05/19 17:42 Creatinine 0.73 mg/dL (0.6-1.1) 02/05/19 17:42 Glucose 143 mg/dL (70-105) H 02/05/19 17:42 Calcium 9.0 mg/dL (7.8-10.44) 02/05/19 17:42 Total Bilirubin 0.7 mg/dL (0.2-1.2) 02/05/19 17:42 AST 30 U/L (5-34) 02/05/19 17:42 ALT 20 U/L (8-55) 02/05/19 17:42 Alkaline Phosphatase 235 U/L (40-110) H 02/05/19 17:42 B-Natriuretic Peptide 603.7 pg/mL (0-100) H 02/05/19 17:42 Serum Total Protein 7.1 g/dL (6.0-8.3) 02/05/19 17:42 Albumin 3.3 g/dL (3.5-5.0) L 02/05/19 17:42 - Radiology Interpretation Chest x-ray Status: image reviewed by me, report reviewed by me (R pleural effusion, noted R basilar infectious pneumonitits or asp could not be excluded) FMR H&P: A/P - Problem List (1) Acute on chronic diastolic HF (heart failure) Current Visit: No Status: Acute Code(s): I50.33 - ACUTE ON CHRONIC DIASTOLIC (CONGESTIVE) HEART FAILURE (2) COPD exacerbation Current Visit: No Status: Acute Code(s): J44.1 - CHRONIC OBSTRUCTIVE PULMONARY DISEASE W (ACUTE) EXACERBATION (3) Pleural effusion, right Current Visit: No Status: Acute Code(s): J90 - PLEURAL EFFUSION, NOT ELSEWHERE CLASSIFIED (4) DM type 2 (diabetes mellitus, type 2) Current Visit: No Status: Chronic Qualifiers: Diabetes mellitus medical terminologist insulin use: without nursing home use Diabetes mellitus complication status: without complication Qualified Code(s): E11.9 - Type 2 diabetes mellitus without complications (5) HTN (hypertension) Current Visit: No Status: Chronic Code(s): I10 - ESSENTIAL (PRIMARY) HYPERTENSION Qualifiers: Hypertension type: essential hypertension Qualified Code(s): I10 - Essential (primary) hypertension (6) Morbid obesity with BMI of 45.0-49.9, adult Current Visit: No Status: Chronic Code(s): E66.01 - MORBID (SEVERE) OBESITY DUE TO EXCESS CALORIES; Z68.42 - BODY MASS INDEX (BMI) 45.0-49.9, ADULT - Plan Pt is a DMII, CHF, COPD, HTN, back pain, tobacco abuse who presents for acute CHF exacerbation, COPD exacerbation. # CHF exacerbation Followed by Dr. Matthews. Likely primary cause of symptoms. Had previous thoracentesis for fluid from what appears to be infectious etiology, no malignant cells appreciated. EF 50-55% in 07/2018. - Continue home meds but increase Lasix to 40 mg IV BID - monitor kidney function, mg, k - Pulm consult in am - daily weights # COPD Exacerbation - continue home meds - duonebs prn - Prednisone 40 mg daily - Did not initiate abx at this time; pending procalcitonin # DM - continue home meds - SSI initiated # Low Back Pain - continued home tizanidine, ibuprofen # HTN - continue home meds # Depression - continue home meds # Tobacco Abuse - pt was taking chantix with good results but did not have medication refilled when transferred to [facility] care. # Deconditioning - Case management consulted. She previously had HH come out twice per week. Family does not believe she is able to care for herself well enough at home. Lives with one son, ex-boyfriend who do not help her. - PT/OT consulted Fluids: none Diet: Low Sodium VTE: lovenox Code Status: Dispo: > 2 days FMR H&P: Upper Level - Plan Date/Time: 02/05/192037 ISkip MD, have evaluated this patient and agree with findings/plan as outlined by internal control manager resident. Pertinent changes/additions are listed here. Catherine Terrazas is a 54 year old F with a PMH of CHF (Last echo 07/29 showed EF 50- 55%), COPD on 2 L NC at baseline, Hx of cervical CA s/p chemo/radiation, DM2 who presented to the ED with a 2 day history of worsening dyspnea. She tried using her home nebulizer but did not get significant improvement so came to the ED. Denies any fever, chills, chest pain, n/v. In ED, vitals were BP 169/67, HR 93, RR 24, T 97.9, O2 sat 100% on 2 L. She was given Furosemide, Solu-medrol and Duoneb in the ED. Started having some relief after intervention. EKG showed RVH, NSR, no ST changes. CXR showed moderate R pleural effusion. Was admitted in August 2018 and had similar effusion that was tapped. Fluid was transudative, but Dr. De La Cruz felt that it was possibly parapneumonic. Fluid culture and cytology were negative from tap. Labs in ED showed WBC 4.4, Cr 0.73 , BNP 603, D-dimer 1.23. CTA negative for PE. On exam, patient had absent breath sounds in the right base and mild exp wheezes throughout. Trace b/l LE edema. Patient is being admitted to inpatient tele for acute hypoxic respiratory failure 2/2 CHF exacerbation vs COPD exacerbation. Will continue steroids, nebs, and lasix. Ordered procal to determine need for abx. Pulmonology consulted from ED for recommendations for moderate right sided pleural effusion. Anticipate hospital stay >48 hours. Please see internal control manager note above for full H&P which I have reviewed and agree with. Addendum - Attending - Attending Attestation Date/Time: 02/05/19 8832 I personally evaluated the patient and discussed the management with Dr. Bolanos /Isaac I agree with the History, Examination, Assessment and Plan documented above with any addition or exceptions noted below. 54 yo WF PMH HFpEF, COPD, and Previous transudative right pleural effusion. Presents with 2 day hx of SOB. Improved with steroids, lasix, and duo nebs in ER. Exam shows absent breath sounds right lung base with faint wheezing throughout. BNP elevated. Trop not drawn by ER and pending at this time. D- Dimer positive. CXR and CTA showed large right pleural effusion. No PE. EKG unremarkable. Admit for CHF vs. CODP exacerbation. Will consider pulmonology consult for thoracentesis. Inpatient, tele, >2 midnights.
--- NOTE | 2019-02-05 20:49 | CT ---
CT ANGIOGRAM CHEST 02/05/19 HISTORY: Difficulty breathing. TECHNIQUE: Axial CT imaging at 2.5 mm intervals from the thoracic inlet through the upper abdomen with IV contra st using CT angiogram protocol. Coronal and sagittal 3D reformatted imaging obtained. Partially visualized upper abdomen demonstrates subtle contour irregularity of the liver, which may signify cirrhotic change. Cholecystectomy clips are present. The spleen is enlarged, measuring 18 cm in AP dimension. There is a moderate/large right pleural effusion. No left sided pleural effusion is noted. The heart is prominent. There is calcification in the region of the mitral valve and involving the coronary ar teries. No axillary, mediastinal or hilar lymphadenopathy is appreciated. There is no endobronchial lesion. Minimal scattered areas of patchy ground glass opacity are noted. This involves portions of the infer ior posterior left lower lobe and anterior lingula. Linear density in the lingula suggest volume loss . There is partial consolidation/collapse of the right middle lobe and right lower lobe. There are h azy areas of scattered ground glass opacity within the lateral aspect of the right lower lobe. There is a ground glass nodule within the right upper lobe on image 38 measuring approximately 7 mm. There is no pulmonary arterial filling defect seen to suggest the presence of acute pulmonary arteria l embolism. No acute osseous abnormality. Chronic severe anterior wedge compression deformities are noted at the T11 and T12 levels. IMPRESSION: 1. No evidence for acute pulmonary arterial embolism. 2. Prominent right pleural effusion. 3. Atherosclerotic disease. 4. Scattered areas of subtle ground glass opacity may signify inflammatory/infectious pneumoniti s. 5. Partial consolidation/ collapse involving right middle lobe and right lower lobe which may si gnify atelectasis or infiltrate. 6. 7 mm ground glass nodule within the right upper lobe. These findings should be further assess ed with a follow-up chest CT in six months following treatment. 7. Cirrhotic configuration of the liver with splenomegaly may signify portal hypertension. Code T POS: ERIK
[2019-02-05] MEDS ORDERED: HYDROcodone/Acetaminophen 5/325 mg Tablet PO PRN ×2 (22:43)
[2019-02-05] MEDS ORDERED: Acetaminophen 325 MG TAB PO PRN (22:43)
[2019-02-05] MEDS ORDERED: Ondansetron ODT 4 MG TAB SL PRN (22:43)
[2019-02-05] MEDS ORDERED: Ondansetron PF 4 MG/2 ML Vial IVP PRN (22:43)
[2019-02-05] MEDS ORDERED: Bacteriostatic Water 30 ML VIAL FS PRN (22:45)
[2019-02-05] MEDS ORDERED: methylPREDNISolone Sod Succ/PF 125 MG/2 ML VIAL IVP SCH (23:59)
[2019-02-06] MEDS ORDERED: tiZANidine HCl 4 MG TAB PO SCH (00:45)
[2019-02-06] MEDS ORDERED: Acetaminophen ER (8hr) 650 MG TAB PO SCH (00:45)
[2019-02-06 01:32] LABS: Troponin I Less than 0.010 ng/mL (< 0.028)
[2019-02-06] MEDS ORDERED: Dextrose 50% Abboject 50 ML SYRINGE SLOW IVP PRN ×3 (03:36→07:29)
[2019-02-06] MEDS ORDERED: HumaLOG 300 UNITS/3 ML VIAL SC PRN ×3 (03:36→07:29)
[2019-02-06] MEDS ORDERED: Dextrose 5% in Water 1,000 ML IV PRN ×3 (03:36→07:29)
[2019-02-06] MEDS ORDERED: PROVENTIL INHALER 6.7 G (200 INHALATIONS) INH PRN (04:04)
[2019-02-06] MEDS ORDERED: Albuterol Sulfate 1.25 MG/3 ML NEB NEB PRN (04:04)
[2019-02-06 04:51] LABS: #Lymphocytes 0.3 thou/uL (1.20-3.40); #Neutrophils 2.3 thou/uL (1.40-6.50); %Basophils 0.5 % (0.0-1.0); %Eosinophils 0.4 % (0.0-10.0); %Lymphocytes 9.8 % (21.0-51.0); %Monocytes 1.4 % (0.0-10.0); %Neutrophils 87.9 % (42.0-75.0); Hemoglobin 11.5 g/dL (12.0-16.0); Mean Corpuscular HGB CONC 31.9 g/dL (32.0-36.0); Mean Corpuscular Hemoglobin 28.2 pg (27.0-31.0); Mean Corpuscular Volume 88.2 fL (78.0-98.0); Platelet Count 112 thou/uL (130-400); RBC Distribution Width 16.3 % (11.5-14.5); White Blood Cell (WBC) Count 2.6 thou/uL (4.8-10.8)
[2019-02-06 05:11] LABS: Anion Gap 9 mmol/L (10-20); BUN (Urea Nitrogen) 15 mg/dL (9.8-20.1); Calc. Creatinine Clearance 159 mL/min (70-130); Calcium 8.8 mg/dL (7.8-10.44); Carbon Dioxide 28 mmol/L (22-29); Chloride 105 mmol/L (98-107); Estimated GFR-MDRD 81; Glucose 316 mg/dL (70-105); Magnesium 1.7 mg/dL (1.6-2.6); Potassium 4.4 mmol/L (3.5-5.1); Sodium 138 mmol/L (136-145)
[2019-02-06] MEDS: Furosemide 40 MG/4 ML VIAL SLOW IVP SCH ×2 (05:19→14:27)
[2019-02-06] MEDS ORDERED: Furosemide 40 MG/4 ML VIAL SLOW IVP SCH (06:00)
--- NOTE | 2019-02-06 07:23 | PDOC.FM ---
- Subjective Subjective: Seen at bedside this morning. Patient states that she feels much better after getting the lasix over night. She denies continued SOB or cough. She feels that her legs are less swollen today as compared to yesterday. She has no new complaints. All systems reviewed and negative other than above. No concerns from nursing. - Objective Vital Signs & Weight: Vital Signs (12 hours) Temp Pulse Resp BP Pulse Ox 02/06/19 03:16 98.1 F 98 20 143/88 H 93 L 02/05/19 23:51 93 L 02/05/19 22:45 98.4 F 95 20 136/63 97 Weight Weight 116.936 kg I&O: 02/05/19 02/06/19 02/07/19 06:59 06:59 06:59 Intake Total 800 Output Total 900 Balance -100 Result Diagrams: 02/06/19 04:11 02/06/19 04:11 Phys Exam - Physical Examination Constitutional: NAD HEENT: moist MMs Neck: no JVD Poor air movement in R base. Cardiovascular: RRR, no significant murmur Gastrointestinal: no distention minimal pedal edema b/l Neurological: non-focal Psychiatric: A&O x 3 Skin: no rash Dx/Plan (1) Acute on chronic diastolic HF (heart failure) Code(s): I50.33 - ACUTE ON CHRONIC DIASTOLIC (CONGESTIVE) HEART FAILURE Status : Acute (2) Pleural effusion, right Code(s): J90 - PLEURAL EFFUSION, NOT ELSEWHERE CLASSIFIED Status: Acute (3) DM type 2 (diabetes mellitus, type 2) Status: Chronic Qualifiers: Diabetes mellitus watermelon harvesting supervisor insulin use: without fdc use Diabetes mellitus complication status: without complication Qualified Code(s): E11.9 - Type 2 diabetes mellitus without complications (4) HTN (hypertension) Code(s): I10 - ESSENTIAL (PRIMARY) HYPERTENSION Status: Chronic Qualifiers: Hypertension type: essential hypertension Qualified Code(s): I10 - Essential (primary) hypertension (5) Morbid obesity with BMI of 45.0-49.9, adult Code(s): E66.01 - MORBID (SEVERE) OBESITY DUE TO EXCESS CALORIES; Z68.42 - BODY MASS INDEX (BMI) 45.0-49.9, ADULT Status: Chronic - Plan Plan: 1. Acute hypoxic respiratory failure - improving. It appears that this is most likely related to a HFpEF exacerbation. Will continue to diurese. - strict I/O - fluid restrict to 2500mL 2. Pleural effusion - recurrent R sided effusion. Low concern for infectious etiology at this time. Cytology on previous pleural fluid was negative for malignancy. Will repeat CXR this afternoon and consult pulm if no resolution. 3. DM2 - home meds - moderate SSI - low carb diet - accucheck achs 4. HTN - home meds Dispo pt is doing well over all and improved from admission. Would expect 1-2 day hospital stay
[2019-02-06] MEDS: Mometasone/Formoterol 120 PUFF INHALER INH SCH ×2 (08:01→19:36)
[2019-02-06] MEDS: predniSONE 20 MG TAB PO SCH (08:30)
[2019-02-06] MEDS: Acetaminophen ER (8hr) 650 MG TAB PO SCH ×2 (08:30→20:46)
[2019-02-06] MEDS: Enoxaparin Sodium 40 MG/0.4 ML SYRINGE SC SCH (08:30)
[2019-02-06] MEDS ORDERED: Non-Formulary Item 1 EACH (Budesonide-Formoterol [Symbicort 160-4.5] 1 PUFF) INH SCH (09:00)
[2019-02-06] MEDS: HumaLOG 300 UNITS/3 ML VIAL SC PRN ×2 (11:57→17:11)
--- NOTE | 2019-02-06 12:57 | PDOC.THORA ---
Thoracentesis Procedure Note - Procedure Date: 02/06/19 Time: 12:00 - PreProcedure Diagnosis: Pleural effusion R sided - PostProcedure Diagnosis: Pleural effusion s/p thoracentesis - Description Patient tolerated procedure: well Procedure in Details: INDICATION: R sided Pleural Effusion PROCEDURE CONSTITUTIONAL LAW PROFESSOR: Dr. Jaylyn Ballard, Dr. Ruben Duran ATTENDING PHYSICIAN: Dr. Girma Solorzano Consent was obtained from Catherine Terrazas prior to the procedure. Indications, risks, and benefits were explained at length. Pt states understanding. PROCEDURE SUMMARY: A time out was performed and the chest x-ray was reviewed, the appropriate side was confirmed and marked. My hands were washed immediately prior to the procedure. I wore a surgical cap, mask with protective eyewear, sterile gown and sterile gloves throughout the procedure. The patient was prepped and draped in a sterile manner using chlorhexidine scrub after the appropriate level was percussed and confirmed by ultrasound. 1% lidocaine was used to anesthesize the skin, subcutaneous tissue, superior aspect of the rib periosteum and parietal pleura. A finder needle was then introduced over the superior aspect of the rib to locate the pleural fluid; serosanginous colored fluid was aspirated at a depth of approximately 6 cm. A 10-blade scalpel was used to louie the skin at the insertion site. The [id number]-r-[id number] needle was then introduced through the skin incision into the pleural space using negative aspiration pressure and the red colometric indicator to confirm appropriate positioning of the needle. The thoracentesis catheter was then threaded without difficulty. 900 ml of serosanginous colored fluid was removed without difficulty. The catheter was then removed. No immediate complications were noted during the procedure. A post -procedure chest x-ray is pending at the time of this note. The fluid will be sent for studies. Estimated blood loss is 2 mL.
--- NOTE | 2019-02-06 15:27 | RAD ---
EXAM: Single view of the chest HISTORY: Status post thoracocentesis COMPARISON: 02/05/2019 FINDINGS: Single view of the chest shows an enlarged but stable cardiomediastinal silhouette. There i s decreased size of the right pleural effusion with a small residual pleural effusion remaining. No pneumothorax is seen. The bones are unremarkable. IMPRESSION: Decreased size of right pleural effusion without evidence of pneumothorax.
--- NOTE | 2019-02-06 15:40 | CON ---
DATE OF CONSULTATION: CONSULT PHYSICIAN: Family Medicine Residency Service. REASON FOR CONSULTATION: Right pleural effusion. HISTORY OF PRESENT ILLNESS: A 54-year-old female with multiple medical problems and history of medicine noncompliance. She presented with a history of shortness of breath that has been occurring slowly over the last several weeks. She has been admitted in the past with similar findings. She had a thoracentesis performed back in July, which showed cloudy fluid, which in is that being strongly transudative. By August, she had a CT scan showing that the effusion was the same and I do not see any films between then and now. She continues to have the right pleural effusion. She has history of diastolic heart dysfunction. She is noncompliant with diuretics and has not been seeing doctors as an outpatient. PAST MEDICAL HISTORY: 1. Diabetes mellitus type 2. 2. Congestive heart failure, diastolic. 3. Chronic obstructive pulmonary disease. 4. Hypertension. 5. Chronic back pain. PAST SURGICAL HISTORY: Hysterectomy for uterine cancer. FAMILY HISTORY: Unremarkable. SOCIAL HISTORY: She is one pack per day smoker. She does not consume alcohol. Lives at home. REVIEW OF SYSTEMS: A 12-point review of systems is otherwise negative. MEDICATIONS: Prior to admission: 1. Albuterol. 2. Sertraline. 3. Chantix. 4. Glipizide. 5. Symbicort. 6. Tizanidine. 7. Tylenol. She is supposed to be taking Lasix, but is not taking that. PHYSICAL EXAMINATION: VITAL SIGNS: Temperature 97.7, pulse 67, respirations 20, and saturation 98% on 2 L, and blood pressure 130/63. GENERAL: She is listed 5 foot eight and weighs 257 pounds. Body mass index is 39. She is awake and alert, and in no acute distress HEENT: NECK: No adenopathy or JVD. LUNGS: She has diminished breath sounds on the right compared to Left. CARDIAC: S1-S2 regular without murmur. ABDOMEN: Obese, soft, nontender, and nondistended extremities she has stasis changes in her ankle. She has ulcers over almost every toe bilaterally. LABORATORY DATA: Sodium 138, potassium 4.4, chloride 105, CO2 of 28, BUN 15, creatinine 0.7, and glucose 316. BNP level was 603. D -dimer 1.23. White blood cell count 2.6, hematocrit 36.1, and platelet count 112. IMAGING STUDIES: CT pulmonary angiogram did not show any clot. She had fairly substantial right-sided pleural effusion. ASSESSMENT: Recurrent right pleural effusion. This has been tapped by the family Medicine Service today and shows bloody fluid, which has not been sent off to the lab as of yet. RECOMMENDATION: If the fluid is transudative, then she needs more aggressive heart failure management. She also needs to be compliant with the regimen. No further recommendations at this time. Job ID: [id number]
[2019-02-06] MEDS: tiZANidine HCl 4 MG TAB PO SCH (20:46)
[2019-02-07 04:51] LABS: #Lymphocytes 0.8 thou/uL (1.20-3.40); #Monocytes 0.4 thou/uL (0.11-0.59); #Neutrophils 3.2 thou/uL (1.40-6.50); %Basophils 0.2 % (0.0-1.0); %Eosinophils 0.4 % (0.0-10.0); %Lymphocytes 18.2 % (21.0-51.0); %Monocytes 9.2 % (0.0-10.0); %Neutrophils 71.9 % (42.0-75.0); Hemoglobin 11.7 g/dL (12.0-16.0); Mean Corpuscular HGB CONC 31.9 g/dL (32.0-36.0); Mean Corpuscular Volume 87.9 fL (78.0-98.0); Platelet Count 125 thou/uL (130-400); RBC Distribution Width 16.1 % (11.5-14.5); Red Blood Cell (RBC) Count 4.17 mill/uL (4.20-5.40); White Blood Cell (WBC) Count 4.4 thou/uL (4.8-10.8)
[2019-02-07 05:08] LABS: Anion Gap 12 mmol/L (10-20); BUN (Urea Nitrogen) 20 mg/dL (9.8-20.1); Calc. Creatinine Clearance 171 mL/min (70-130); Calcium 8.8 mg/dL (7.8-10.44); Carbon Dioxide 26 mmol/L (22-29); Chloride 108 mmol/L (98-107); Estimated GFR-MDRD 89; Glucose 161 mg/dL (70-105); Sodium 142 mmol/L (136-145)
--- NOTE | 2019-02-07 05:48 | PDOC.FM ---
- Subjective Subjective: Patient doing well today, reports that her breathing is "100% better" than it was when she came in. Reports that the procedure yesterday improved her breathing. Has had oxygen on at times overnight; patient states she has oxygen at home that she uses periodically when she feels like she needs it. Discussed that patient has been to inpatient rehab before in the past, states that it helped her. Patient met with Dr. Russ yesterday, reports that they discussed continuing her medications outpatient with close follow up. Patient agreeable with plan of care. - Objective Vital Signs & Weight: Vital Signs (12 hours) Temp Pulse Resp BP Pulse Ox 02/07/19 04:10 97.7 F 108 H 18 126/59 L 99 02/06/19 19:40 97.9 F 108 H 20 134/64 98 02/06/19 19:37 93 L 02/06/19 19:36 93 L Weight Admit Weight 117.662 kg Weight 116.21 kg I&O: 02/05/19 02/06/19 02/07/19 06:59 06:59 06:59 Intake Total 800 1210 Output Total 2300 1975 Balance -1500 -765 Result Diagrams: 02/07/19 04:03 02/07/19 04:03 Phys Exam - Physical Examination Constitutional: NAD HEENT: moist MMs, sclera anicteric Neck: supple, full ROM Respiratory: no wheezing crackles LL base, decreased breath sounds RL base Cardiovascular: RRR, no significant murmur Gastrointestinal: soft, non-tender 1+ BLE edema Neurological: non-focal, moves all 4 limbs Psychiatric: normal affect, A&O x 3 Skin: normal turgor Deviation from normal: scratches on upper and lower extremities; bandaging on ankle c/d/i Dx/Plan (1) Acute and chronic respiratory failure Code(s): J96.20 - ACUTE AND CHR RESP FAILURE, UNSP W HYPOXIA OR HYPERCAPNIA Status: Acute (2) Acute on chronic diastolic HF (heart failure) Code(s): I50.33 - ACUTE ON CHRONIC DIASTOLIC (CONGESTIVE) HEART FAILURE Status : Acute (3) COPD exacerbation Code(s): J44.1 - CHRONIC OBSTRUCTIVE PULMONARY DISEASE W (ACUTE) EXACERBATION Status: Acute (4) Pleural effusion, right Code(s): J90 - PLEURAL EFFUSION, NOT ELSEWHERE CLASSIFIED Status: Acute (5) DM type 2 (diabetes mellitus, type 2) Status: Chronic Qualifiers: Diabetes mellitus group home insulin use: without long term care phlebotomist use Diabetes mellitus complication status: without complication Qualified Code(s): E11.9 - Type 2 diabetes mellitus without complications (6) HTN (hypertension) Code(s): I10 - ESSENTIAL (PRIMARY) HYPERTENSION Status: Chronic Qualifiers: Hypertension type: essential hypertension Qualified Code(s): I10 - Essential (primary) hypertension - Plan Plan: #Acute hypoxic respiratory failure - improving. Most likely related to a HFpEF exacerbation. Will continue to diurese. Encouraged patient to continue lasix outpatient with close outpatient follow up - strict I/O - fluid restrict to 2500mL - PT to work with patient today to provide recs for rehab; CM left note that patient will likely not qualify for HH and to f/u again today #Pleural effusion - recurrent R sided effusion. Low concern for infectious etiology at this time. Cytology on previous pleural fluid was negative for malignancy. -R thoracentesis 02/06, results suggest transudative -pulmonology consulted 02/06, appreciate recs. Dr. Russ suggests aggressive CHF mgmt with encouragement of patient compliance #DM2 - home meds, glipizide - moderate SSI - low carb diet - accucheck achs - will start metformin today #HTN - continue home meds Dispo: pt is doing well over all and improved from admission. S/P R thoracentesis 02/06. Will wait to see if PT recommends rehab vs home, then possible d/c this afternoon
[2019-02-07] MEDS: Furosemide 40 MG/4 ML VIAL SLOW IVP SCH ×2 (06:10→13:19)
[2019-02-07] MEDS: Mometasone/Formoterol 120 PUFF INHALER INH SCH ×2 (07:05→19:23)
[2019-02-07] MEDS: metFORMIN 500 MG TAB PO SCH ×2 (07:33→17:08)
[2019-02-07] MEDS: predniSONE 20 MG TAB PO SCH (09:28)
[2019-02-07] MEDS: Enoxaparin Sodium 40 MG/0.4 ML SYRINGE SC SCH (09:28)
[2019-02-07] MEDS: Acetaminophen ER (8hr) 650 MG TAB PO SCH ×2 (09:28→20:37)
[2019-02-07] MEDS: HumaLOG 300 UNITS/3 ML VIAL SC PRN ×2 (11:47→17:07)
--- NOTE | 2019-02-07 14:21 | PRG ---
DATE OF SERVICE: 02/07/2019 SUBJECTIVE: The patient is feeling better, wants to go home. Her pleural fluid came back transudative. OBJECTIVE: VITAL SIGNS: Temperature 98.6, pulse 75, respirations 20, O2 saturation 97% on 2 L, blood pressure 132/62. HEENT: Clear. NECK: No adenopathy or JVD. LUNGS: Fairly clear bilaterally. CARDIAC: S1 and S2. Regular. ABDOMEN: Soft. EXTREMITIES: No edema. ASSESSMENT: 1. Congestive heart failure, acute, diastolic. 2. Pleural effusion, which is transudative, likely secondary to congestive heart failure. RECOMMENDATIONS: The patient needs to be compliant with medical regimen and fluid restriction. Needs to take her medicine as directed. No further recommendations. We will sign off. Job ID: [id number]
[2019-02-07] MEDS ORDERED: Lidocaine 5% Patch TD SCH (17:00)
[2019-02-07] MEDS: tiZANidine HCl 4 MG TAB PO SCH (20:38)
[2019-02-08 04:44] LABS: #Monocytes 0.4 thou/uL (0.11-0.59); #Neutrophils 2.9 thou/uL (1.40-6.50); %Basophils 0.8 % (0.0-1.0); %Eosinophils 0.6 % (0.0-10.0); %Lymphocytes 23.6 % (21.0-51.0); %Monocytes 9.3 % (0.0-10.0); %Neutrophils 65.7 % (42.0-75.0); Hemoglobin 12.4 g/dL (12.0-16.0); Mean Corpuscular HGB CONC 30.9 g/dL (32.0-36.0); Mean Corpuscular Hemoglobin 27.6 pg (27.0-31.0); Mean Corpuscular Volume 89.3 fL (78.0-98.0); Mean Platelet Volume 7.9 fL (7.4-10.4); Platelet Count 135 thou/uL (130-400); RBC Distribution Width 16.2 % (11.5-14.5); Red Blood Cell (RBC) Count 4.49 mill/uL (4.20-5.40); White Blood Cell (WBC) Count 4.4 thou/uL (4.8-10.8)
[2019-02-08] MEDS ORDERED: Lidocaine Patch Removal 1 EACH TOP SCH (05:00)
[2019-02-08 05:05] LABS: Anion Gap 12 mmol/L (10-20); BUN (Urea Nitrogen) 25 mg/dL (9.8-20.1); Calc. Creatinine Clearance 164 mL/min (70-130); Calcium 9.1 mg/dL (7.8-10.44); Carbon Dioxide 31 mmol/L (22-29); Chloride 104 mmol/L (98-107); Estimated GFR-MDRD 84; Glucose 116 mg/dL (70-105); Magnesium 1.9 mg/dL (1.6-2.6); Potassium 3.8 mmol/L (3.5-5.1); Sodium 143 mmol/L (136-145)
[2019-02-08 05:07] VITALS: BMI 38.7
--- NOTE | 2019-02-08 05:25 | PDOC.FM ---
- Subjective Subjective: Patient doing well this morning. Met with CM yesterday and discussed wishes to have outpatient physical therapy instead of rehab. Discussed with patient the importance of continuing her medications outpatient, patient agreeable with plan of care. - Objective Vital Signs & Weight: Vital Signs (12 hours) Temp Pulse Resp BP BP Pulse Ox 02/08/19 03:34 97.8 F 101 H 23 H 129/59 L 95 02/07/19 20:00 99 02/07/19 19:25 97.4 F L 105 H 20 137/64 99 02/07/19 19:24 98 02/07/19 19:23 92 L Weight Admit Weight 117.662 kg Weight 115.666 kg I&O: 02/06/19 02/07/19 02/08/19 06:59 06:59 06:59 Intake Total 800 1810 1810 Output Total 2300 3175 2250 Balance -1500 -1363 -511 Result Diagrams: 02/08/19 03:59 02/08/19 03:59 Phys Exam - Physical Examination Constitutional: NAD HEENT: moist MMs, sclera anicteric Neck: supple, full ROM Respiratory: no wheezing decreased breath sounds RLL Cardiovascular: RRR, no significant murmur Gastrointestinal: soft, non-tender Musculoskeletal: pulses present 1+ BLE edema Neurological: non-focal, moves all 4 limbs Psychiatric: normal affect, A&O x 3 Skin: normal turgor Deviation from normal: scratches on BUE and BLE Dx/Plan (1) Acute and chronic respiratory failure Code(s): J96.20 - ACUTE AND CHR RESP FAILURE, UNSP W HYPOXIA OR HYPERCAPNIA Status: Acute (2) Acute on chronic diastolic HF (heart failure) Code(s): I50.33 - ACUTE ON CHRONIC DIASTOLIC (CONGESTIVE) HEART FAILURE Status : Acute (3) COPD exacerbation Code(s): J44.1 - CHRONIC OBSTRUCTIVE PULMONARY DISEASE W (ACUTE) EXACERBATION Status: Acute (4) Pleural effusion, right Code(s): J90 - PLEURAL EFFUSION, NOT ELSEWHERE CLASSIFIED Status: Acute (5) DM type 2 (diabetes mellitus, type 2) Status: Chronic Qualifiers: Diabetes mellitus long-term insulin use: without insurance business analyst use Diabetes mellitus complication status: without complication Qualified Code(s): E11.9 - Type 2 diabetes mellitus without complications (6) HTN (hypertension) Code(s): I10 - ESSENTIAL (PRIMARY) HYPERTENSION Status: Chronic Qualifiers: Hypertension type: essential hypertension Qualified Code(s): I10 - Essential (primary) hypertension - Plan Plan: #Acute hypoxic respiratory failure - improved. Most likely related to a HFpEF exacerbation. Will continue to diurese. Encouraged patient to continue lasix outpatient with close outpatient follow up - strict I/O - fluid restrict to 2500mL - PT worked with patient 02/08 and rec fair rehab potential. CM met with patient and patient decided she would prefer outpatient therapy with [facility] instead of inpatient rehab at this time. Due to insurance HH would likely not be covered. Signed forms for OP Therapy for patient to continue on discharge #Pleural effusion - recurrent R sided effusion. Low concern for infectious etiology at this time. Cytology on previous pleural fluid was negative for malignancy. -R thoracentesis 02/06, results suggest transudative -pulmonology consulted 02/06, appreciate recs. Dr. Russ suggests aggressive CHF mgmt with encouragement of patient compliance #DM2 - home meds, glipizide - moderate SSI - low carb diet - accucheck achs - started metformin 02/07, continue #HTN - continue home meds Dispo: pt is doing well over all and improved from admission. S/P R thoracentesis 02/06. Outpatient therapy forms signed. Patient to be d/c today with f/u outpatient with both PCP and outpatient therapy.
[2019-02-08] MEDS: Furosemide 40 MG/4 ML VIAL SLOW IVP SCH ×2 (05:35→13:58)
[2019-02-08] MEDS: Mometasone/Formoterol 120 PUFF INHALER INH SCH (07:56)
[2019-02-08] MEDS: Acetaminophen ER (8hr) 650 MG TAB PO SCH (08:59)
[2019-02-08] MEDS: metFORMIN 500 MG TAB PO SCH (08:59)
[2019-02-08] MEDS: predniSONE 20 MG TAB PO SCH (08:59)
[2019-02-08] MEDS: Enoxaparin Sodium 40 MG/0.4 ML SYRINGE SC SCH (08:59)
--- NOTE | 2019-02-08 11:50 | PRG ---
DATE OF SERVICE: 02/08/2019 I have read the note and discussed the case with Dr. Sarahi Giordano. I agree with her assessment and plan. SUBJECTIVE: Ms. Terrazas is a pleasant 54-year-old lady with a history of heart failure and COPD, who presented to our ER with a 2-day history of heart failure and COPD exacerbation. She had been increasing her use of her nebulizer at home. She was also noted to have a pleural effusion at the right lung base and subsequent thoracentesis was consistent with transudate secondary to heart failure. She was given an IV dose of Lasix in the ED and had a good brisk diuresis and markedly improved in her symptomatology. She had not been taking her Lasix as prescribed, and it was emphasized to her the importance of doing so. In discussing with her further and given her rather obese body habitus, she states that in the past she has been told she has sleep apnea and was prescribed a CPAP machine. She states she could not and did not tolerate it, therefore does not use it. We explained to her the importance of treating sleep apnea and that it has negative impacts on her heart and lung conditions. She states that she would reconsider using this. In the event, this morning after her IV Lasix, she is looking and feeling much better and will be discharged. Her trops on admission were less than 0.010. Her BNP was elevated at 604. Sodium 142, potassium 3.9, chloride 108, bicarb 25, BUN 13, and creatinine 0.73. She was discharged in improved condition and admonished to take medications as directed. Job ID: [id number]
[2019-02-08] MEDS: HumaLOG 300 UNITS/3 ML VIAL SC PRN (12:28)
[2019-02-08 15:30] VITALS: BP 128/62; TEMP 98
--- NOTE | 2019-02-08 15:59 | PQF ---
JUAN BENJAMIN, KATHY MELLO MD [id number] CLINICAL DOCUMENTATION IMPROVEMENT CLARIFICATION FORM: ICD-10 Updated PLEASE DO AN ADDENDUM TO THE PROGRESS NOTE WITH ANY DOCUMENTATION UPDATES OR ADDITIONS AND CARRY THROUGH TO DC SUMMARY. THANK YOU. DATE: 02/08/2019 ATTN: DR. Leeann GARCIA Please exercise your independent, professional judgment in responding to the clarification form. Clinical indicators are provided on the bottom of this form for your review. Please check appropriate box(s): Acute Encephalopathy: Etiology: [ ] Hypertensive [ X ] Metabolic [ ] Toxic [ ] Hepatic with Coma [ ] Hepatic w/o Coma [ ] Hypoxic [ ] Septic [ ] Wernickes [ ] Drug induced: [ ] Unspecified [ ] in the setting of underlying dementia [ ] Other (please specify) [ ] Transient Alteration of Awareness [ ] Other diagnosis [ ] Unable to determine In addition, please specify: Present on Admission (POA): [ X ] Yes [ ] No [ ] Unable to determine For continuity of documentation, please document condition throughout progress notes and discharge summary. Thank You. CLINICAL INDICATORS - SIGNS / SYMPTOMS / LABS / RESULTS AND LOCATION IN EMR 02/05 SODIUM 122 02/06 CREATININE 1.14 > 1.11 02/05 H&P (MARIELOS) PRESENTED TO THE ED WITH ALTERED MENTAL STATUS. APPARENTLY SHE HAS BEEN DRINKING 24 OZ OF BEER DAILY. SHE ADDITIONALLY HAS NOT BEEN EATING AND DRINKING REGULAR WATER MUCH OVER THE PAST FEW DAYS. A/P: 2). ACUTE ENCEPHALOPATHY 02/06 PN (OSVALDO) A/P: 3) ACUTE ENCEPHALOPATHY RISK: DX HYPONATREMIA, ALCOHOL ABUSE/WITHDRAW, HYPOKALEMIA, DM ( PN/JOSE) 02/08 TREATMENTS: VALIUM ORDERED (02/06) IV FLUIDS 02/06 THANK YOU ! LICO (This form is maintained as a part of the permanent medical record) 2014 [email or web address]. All Rights Reserved [email or web address] [phone] MTDD
--- NOTE | 2019-02-09 15:56 | DIS ---
DATE OF ADMISSION: 02/05/2019 DATE OF DISCHARGE: 02/08/2019 ADMITTING RESIDENT: Jeb Bolanos DO. ADMITTING ATTENDING: Tish Johansen MD. DISCHARGE RESIDENT: Sarahi Giordano MD. DISCHARGE ATTENDING: Shaun Calhoun MD. CONSULTS: Case management, Cardiac Rehab, dietitian, Heart Failure Clinic, OT, PT, post-acute screening, Wound Care, Pulmonology (Dr. Russ). PROCEDURES: Thoracentesis: 900 mL of serosanguineous colored fluid was removed from the right side of the lung via ultrasound-guided thoracentesis by Dr. Jaylyn Ballard, Dr. Ruben Duran, and Dr. Girma Solorzano. IMAGING: Chest x-ray: Increased density in the right base suggest a moderate sized right pleural effusion. Right basilar infectious pneumonitis or aspiration cannot be excluded. Chest/thorax CTA: No evidence for acute pulmonary artery embolism, prominent right pleural effusion. Atherosclerotic disease. Scattered areas of subtle ground- glass opacity may signify inflammatory/infectious pneumonitis. Partial consolidation/collapse involving right middle lobe and right lower lobe, which may signify atelectasis or infiltrate. 7-mm ground-glass nodule within the right upper lobe. The finding should be further assessed with a followup chest CT in 6 months following treatment. Cirrhotic configuration of the liver with splenomegaly may signify portal hypertension. Repeat chest x-ray: Decreased size of right pleural effusion without evidence of pneumothorax. PRIMARY DIAGNOSES: Acute hypoxic respiratory failure, right pleural effusion. SECONDARY DIAGNOSES: Type 2 diabetes, hypertension. DISCHARGE MEDICATIONS: 1. acetaminophen p.o. b.i.d. 2. Albuterol sulfate nebulizer vials x30. 3. ProAir HFA inhalant p.r.n. 4. Symbicort one puff inhaled b.i.d. 5. 5 mg glipizide p.o. daily. 6. 100 mg sertraline p.o. daily. 7. 4 mg tizanidine p.o. at bedtime. 8. 1 mg Chantix p.o. b.i.d. 9. 500 mg metformin p.o. b.i.d. 10. 40 mg furosemide p.o. daily. DISCONTINUED MEDICATIONS: 1. Lovenox. 2. IV Lasix. 3. Lidocaine patch. HISTORY OF PRESENT ILLNESS/HOSPITAL COURSE: The patient is a 54-year-old female with past medical history of diabetes type 2, CHF, COPD, hypertension who is admitted for dyspnea after being found to have acute hypoxic respiratory failure due to CHF versus COPD exacerbation. She was given DuoNeb p.r.n., started on prednisone 40 mg daily and given 40 mg Lasix IV b.i.d. After further monitoring and management with excess fluid being found to be in the right lower lobe, the patient admits that she had not been taking her furosemide outpatient due to the patient stating that nobody had told her to take it, and it was determined that the acute hypoxic respiratory failure was likely due to a CHF exacerbation due to medication noncompliance. Dr. Russ from Pulmonology was consulted and recommended increased heart failure management with patient compliance. The patient did have a right thoracentesis for a right-sided pleural effusion during which 900 mL of serosanguineous fluid was drawn off and sent for culture and for lab work. The pleural fluid appears to be transudative though final culture is still pending. The patient met with Physical Therapy that worked with her and reported that she would be a fair candidate for rehab inpatient. She also met with Case Management and then after discussion, the patient determined that she would prefer to do physical therapy outpatient. Physical and Occupational therapy was organized for patient upon discharge. The patient was evaluated and examined on the day of discharge and found to be in stable condition and ready to go home with followup outpatient and with outpatient physical therapy and occupational therapy. DISPOSITION: Stable. DISCHARGE INSTRUCTIONS: 1. Location: Home. 2. Diet: Carb conscious, heart healthy. 3. Activity: As tolerated. 4. Followup: With PCP within 1 week at [facility] and with outpatient physical and occupational therapy. It should be noted that on the CT scan, it was recommended for a repeat CT in 6 months to evaluate for any changes. Please see above. Job ID: [id number] [facility]
== END 2019-02-08 15:48 | disposition home or self-care (01) | DRG 291 ==
LOC: ERS 16:39 → 2NO 22:47
PROVIDERS: ADMIT Family Medicine; ATTEND Family Medicine
PROC: 0W993ZZ Drainage of Right Pleural Cavity, Percutaneous Approach (ICD-10-PCS; principal; 2019-02-06)
DX: I11.0 Hypertensive heart disease with heart failure (principal); J96.01 Acute respiratory failure with hypoxia; G93.41 Metabolic encephalopathy; Z68.41 Body mass index [BMI] 40.0-44.9, adult; J44.1 Chronic obstructive pulmonary disease with (acute) exacerbation; I50.33 Acute on chronic diastolic (congestive) heart failure; E66.01 Morbid (severe) obesity due to excess calories; E11.9 Type 2 diabetes mellitus without complications; G89.29 Other chronic pain; F17.210 Nicotine dependence, cigarettes, uncomplicated; Z90.710 Acquired absence of both cervix and uterus; Z91.14 Patient's other noncompliance with medication regimen
CPT/HCPCS: 36415; 36416; 71045; 71275; 80048; 80053; 82945; 83615; 83735; 83880; 84145; 84155; 84157; 84484; 85025; 85379; 87070; 87205; 88112; 88305; 93005; 93798; 94640; 94664; 94760; 96374; 96375; J1650; J1940; J2930; J7512; J7620

== ENCOUNTER 2019-02-14 15:32 | Inpatient (IN) | payer OTHER ==
[~2019-02-14 15:32] MED LIST: Iopamidol-370 76% 500 ML 1 ML ONE
--- NOTE | 2019-02-14 16:29 | ULT ---
EXAM: Left lower extremity venous Doppler US HISTORY: left lower extremity edema and pain FINDINGS: Grayscale, color-flow, Doppler evaluation, spectral analysis of the left lower extremity venous struc tures is performed with 2-D imaging. The left common femoral, superficial femoral, popliteal, posterior tibial, proximal greater saphenous and profunda femoral veins are imaged. There is normal luminal compressibility, flow, and augmentation the visualized deep venous structures of the left lower extremity. There is a popliteal cyst measuring 3.4 x 1.9 x 0.9 cm IMPRESSION: No evidence of a deep vein thrombosis in the left lower extremity. Mazariegos's cyst.
[2019-02-14 16:33] LABS: ALT (SGPT) 32 U/L (8-55); AST (SGOT) 36 U/L (5-34); Albumin 3.3 g/dL (3.5-5.0); Alkaline Phosphatase 264 U/L (40-110); Anion Gap 17 mmol/L (10-20); BUN (Urea Nitrogen) 18 mg/dL (9.8-20.1); Calc. Creatinine Clearance 0 mL/min (70-130); Calcium 9.1 mg/dL (7.8-10.44); Carbon Dioxide 21 mmol/L (22-29); Chloride 107 mmol/L (98-107); Estimated GFR-MDRD 78; Globulin 4.7 g/dL (2.4-3.5); Glucose 141 mg/dL (70-105); Potassium 4.3 mmol/L (3.5-5.1); Sodium 141 mmol/L (136-145)
[2019-02-14 16:51] LABS: #Basophils 0.1 thou/uL (0.0-0.2); #Eosinphils 0.1 thou/uL (0.0-0.7); #Lymphocytes 0.7 thou/uL (1.20-3.40); #Monocytes 0.6 thou/uL (0.11-0.59); #Neutrophils 8.5 thou/uL (1.40-6.50); %Basophils 0.6 % (0.0-1.0); %Eosinophils 0.9 % (0.0-10.0); %Lymphocytes 7.2 % (21.0-51.0); %Monocytes 5.9 % (0.0-10.0); %Neutrophils 85.4 % (42.0-75.0); Hemoglobin 12.3 g/dL (12.0-16.0); Mean Corpuscular HGB CONC 31.4 g/dL (32.0-36.0); Mean Corpuscular Hemoglobin 27.7 pg (27.0-31.0); Mean Corpuscular Volume 88.1 fL (78.0-98.0); Mean Platelet Volume 8.5 fL (7.4-10.4); Platelet Count 149 thou/uL (130-400); RBC Distribution Width 15.7 % (11.5-14.5); Red Blood Cell (RBC) Count 4.46 mill/uL (4.20-5.40); White Blood Cell (WBC) Count 9.9 thou/uL (4.8-10.8)
--- NOTE | 2019-02-14 16:52 | RAD ---
PORTABLE CHEST: Date: 02/14/19 HISTORY: Shortness of breath. Chest pain. COMPARISON: 02/06/19. FINDINGS: Heart size is enlarged. Pulmonary vessels are engorged. There are some increased interstitial lung ma rkings compatible with an element of edema. Increased density in the right base is compatible with so me moderate right effusion with atelectatic change in the right base. IMPRESSION: Cardiomegaly with mild pulmonary edema changes and moderate right pleural effusion. POS: ERIK
--- NOTE | 2019-02-14 17:48 | CT ---
CT PULMONARY ANGIOGRAM WITH IV CONTRAST AND 3D POSTPROCESSING: Date: 02/14/19 HISTORY: Shortness of breath and chest pain. FINDINGS: There is good contrast opacification of the pulmonary arterial vasculature without filling defects to suggest pulmonary embolism. The thoracic aorta is well opacified without aneurysm or dissection. There is a moderate sized right pleural effusion. No pericardial or left pleural effusion is seen. Th ere is a mild patchy infiltrate in the lingula. No pneumothoraces are seen. There are atelectatic alycia nges adjacent to the pleural effusions on the right. Upper abdominal tomograms demonstrate splenomegaly (18.4 cm in AP dimension). There is compression of T12 vertebral body. IMPRESSION: 1. No CT evidence of pulmonary embolism. 2. Moderate sized right pleural effusion. 3. Splenomegaly. POS: MZA
[2019-02-14] MEDS ORDERED: Ketorolac Tromethamine 60 MG/2 ML VIAL ONE (19:25)
[2019-02-14] MEDS ORDERED: Fentanyl 100 MCG/2 ML VIAL ONE (19:25)
--- NOTE | 2019-02-14 19:46 | PDOC.FPRHP ---
- History of Present Illness Chief Complaint: LLE redness and pain History of Present Illness: Ms. Terrazas is a 54yoF with PMH significant for DMII, CHF, COPD, HTN, back pain, tobacco abuse who was recently discharged from the hospital for a CHF/COPD exacerbation presents for evaluation of a red, warm, tender area on her distal thigh. She states that the area began to become inflamed yesterday morning and progressively worsened to the point she decided to come to the ED. She denies any injuries to the area or known insect bites. She states that she gets cellulitis often in her left leg. She has known venous stasis dermatitis on her left lower extremity, however this area is lower on her leg than the current area of inflammation. ED Course: Vancomycin, NS 1L, Ceftriaxone, Fentanyl, Ketorolac - Allergies/Adverse Reactions Allergies Allergy/AdvReac Type Severity Reaction Status Date / Time latex Allergy Hives Verified 02/14/19 22:52 morphine AdvReac Emesis Verified 02/14/19 22:52 TIDE LAUNDRY DETERGENT Allergy Hives Uncoded 02/14/19 22:52 - Home Medications Medication Instructions Recorded Confirmed Type Albuterol Sulfate [Proair HFA] 2 puff INH PRN PRN 08/04/18 02/14/19 History Sertraline HCl 100 mg PO DAILY 08/04/18 02/14/19 History glipiZIDE [glipiZIDE ER] 5 mg PO DAILY 08/04/18 02/14/19 History Budesonide-Formoterol [Symbicort 2 puff INH BID 08/22/18 02/14/19 History 160-4.5] tiZANidine HCl [Tizanidine HCl] 4 mg PO HS 08/22/18 02/14/19 History Albuterol Sulfate [Albuterol 0.63 mg NEB Q4HR PRN 02/05/19 02/14/19 History Sulfate Neb] Furosemide 40 mg PO DAILY #30 tablet 02/08/19 02/14/19 Rx Acetaminophen ER (8hr) [TYLENOL ER 1 tab PO BID #0 02/09/19 02/14/19 Rx (8hr ARTHRITIS PAIN)] - History PMHx: HFpEF COPD DM II Chronic pain HTN Depression Tobacco use PSHx: hysterectomy for cervical/uterine cancer FHx: non-contributory Social: 1 ppd, denies drugs/alcohol, lives with son and ex-boyfriend - Review of Systems General: reports: fever/chills Eyes: denies: eye pain, vision changes ENT: reports: rhinorrhea. denies: nasal congestion Respiratory: reports: cough, congestion, shortness of breath Cardiovascular: reports: chest pain. denies: palpitation, edema Gastrointestinal: reports: abdominal pain. denies: nausea, vomiting, diarrhea, constipation Genitourinary: denies: dysuria, polyuria, discharge Skin: reports: lesions Musculoskeletal: reports: pain, tenderness. denies: stiffness, swelling Neurological: reports: other (headache x 2 days). denies: numbness, syncope - Vital signs Selected Entries 02/15/19 04:20 Temperature 98.0 F Pulse Rate 73 Blood Pressure 115/58 L [Sitting] Respiratory 16 Rate O2 Sat by Pulse 96 Oximetry Oxygen Delivery Room Air Method Wt: 115kg - Physical Exam Constitutional: NAD, awake, alert and oriented, well developed HEENT: normocephalic and atraumatic, PERRLA, EOMI, grossly normal hearing, MMM Neck: supple, trachea midline Heart: RRR, normal S1/S2, no murmurs/rubs/gallops Lungs: CTAB, no respiratory distress, good air movement, no wheezing Abdomen: soft, non-tender, bowel sounds present Musculoskeletal: normal structure, normal tone Neurological: no focal deficit, CN II-XII intact Skin: good turgor, capillary refill <2 seconds -Skin: Approximate 10cm area of erythema on her anterior distal thigh, proximal to the knee, with smaller area of induration and warmth. She states this area is exceptionally painful. Heme/Lymphatic: no unusual bruising or bleeding, no purpura, no petechia Psychiatric: normal mood and affect, good judgment and insight FMR H&P: Results - Labs Result Diagrams: 02/15/19 04:13 02/15/19 04:13 Lab results: WBC 9.9 thou/uL (4.8-10.8) 02/14/19 16:33 Hgb 12.3 g/dL (12.0-16.0) 02/14/19 16:33 Hct 39.3 % (36.0-47.0) 02/14/19 16:33 MCV 88.1 fL (78.0-98.0) 02/14/19 16:33 Plt Count 149 thou/uL (130-400) 02/14/19 16:33 Neutrophils % 85.4 % (42.0-75.0) H 02/14/19 16:33 Sodium 141 mmol/L (136-145) 02/14/19 15:53 Potassium 4.3 mmol/L (3.5-5.1) 02/14/19 15:53 Chloride 107 mmol/L (98-107) 02/14/19 15:53 Carbon Dioxide 21 mmol/L (22-29) L 02/14/19 15:53 BUN 18 mg/dL (9.8-20.1) 02/14/19 15:53 Creatinine 0.77 mg/dL (0.6-1.1) 02/14/19 15:53 Glucose 141 mg/dL (70-105) H 02/14/19 15:53 Calcium 9.1 mg/dL (7.8-10.44) 02/14/19 15:53 Total Bilirubin 1.0 mg/dL (0.2-1.2) 02/14/19 15:53 AST 36 U/L (5-34) H 02/14/19 15:53 ALT 32 U/L (8-55) 02/14/19 15:53 Alkaline Phosphatase 264 U/L (40-110) H 02/14/19 15:53 B-Natriuretic Peptide 282.0 pg/mL (0-100) H 02/14/19 16:33 Serum Total Protein 8.0 g/dL (6.0-8.3) 02/14/19 15:53 Albumin 3.3 g/dL (3.5-5.0) L 02/14/19 15:53 - Radiology Interpretation Chest x-ray Status: report reviewed by me (Cardiomegaly with mild pulmonary edema changes and moderate right pleural effusion.) CT scan - chest Status: report reviewed by me (IMPRESSION: 1. No CT evidence of pulmonary embolism. 2. Moderate sized right pleural effusion. 3. Splenomegaly.) Other Status: report reviewed by me (CT lower extremity: IMPRESSION: No evidence of a deep vein thrombosis in the left lower extremity. Bakers cyst.) FMR H&P: A/P - Problem List (1) CHF (congestive heart failure) Current Visit: Yes Status: Acute Code(s): I50.9 - HEART FAILURE, UNSPECIFIED (2) COPD (chronic obstructive pulmonary disease) Current Visit: Yes Status: Acute (3) Cellulitis and abscess of left leg Current Visit: No Status: Acute Code(s): L03.116 - CELLULITIS OF LEFT LOWER LIMB; L02.416 - CUTANEOUS ABSCESS OF LEFT LOWER LIMB (4) Pleural effusion, right Current Visit: No Status: Acute Code(s): J90 - PLEURAL EFFUSION, NOT ELSEWHERE CLASSIFIED (5) DM type 2 (diabetes mellitus, type 2) Current Visit: No Status: Chronic Qualifiers: Diabetes mellitus intermediate insulin use: without intermediate use Diabetes mellitus complication status: without complication Qualified Code(s): E11.9 - Type 2 diabetes mellitus without complications (6) HTN (hypertension) Current Visit: No Status: Chronic Code(s): I10 - ESSENTIAL (PRIMARY) HYPERTENSION Qualifiers: Hypertension type: essential hypertension Qualified Code(s): I10 - Essential (primary) hypertension (7) Morbid obesity with BMI of 45.0-49.9, adult Current Visit: No Status: Chronic Code(s): E66.01 - MORBID (SEVERE) OBESITY DUE TO EXCESS CALORIES; Z68.42 - BODY MASS INDEX (BMI) 45.0-49.9, ADULT - Plan Cellulitis of LLE -US done in ED did not show significant fluid collection for drainage, CT shows small abscess. -Venous dopplers and CT were negative for DVT. -Will main area and monitor for improvement with antibiotic therapy -On Vancomycin (renally dosed, pharmacy to dose) and Rocephin empirically R pleural effusion - S/p thoracentesis 02/06. - CT today shows "moderate" pleural effusion, which is similar to previous read. - She is asymptomatic, not complaining of any respiratory symptoms. HFpEF - EF 50-55% in 07/2018. - on lasix po 40mg daily COPD - continue home meds - duonebs prn DM II - continue home meds - SSI initiated Chronic Back Pain - continued home tizanidine H/o HTN, currently normotensive - No home medications. Will monitor VS. Depression - continue sertraline Tobacco Abuse - She was discharged with Chantix, unclear whether she started it or not. Consider restarting on discharge. Disposition/LOS: Fluids: none Diet: Low Sodium VTE: lovenox Code Status: Cardiac only, does not want intubation Dispo: Stable, likely LOS > 2 days FMR H&P: Upper Level - Pertinent history Ms. Terrazas is a 54yoF with PMH significant for DMII, CHF, COPD, HTN, back pain, tobacco abuse who was recently discharged from the hospital for a CHF/COPD exacerbation presents for evaluation of a red, warm, tender area on her left distal thigh. She states that the area began to become inflamed yesterday morning and progressively worsened to the point she decided to come to the ED today. She states the erythema rapidly progressed. She denies any injuries to the area or known insect bites. She states that she gets cellulitis often in her left leg, particularly on the lower portion of the leg. She has known venous stasis dermatitis on her left lower extremity. Patient denies fever. She endorses occasional chills. Patient denies N/V/D. She denies shortness of breath or chest pain. - Pertinent findings General: Alert and oriented x3. No acute distress. HEENT: MMM. Card: RRR, no appreciable murmur Resp: Crackles on right side of chest, no acute respiratory distress Ext: No apparent edema Skin: Chronic venous stasis dermatitis of lower extremities. Erythema of left lower extremity without warm. Area of circumferential erythema on distal left thigh. Fluctuant area in center of thigh. Exquisitely tender to palpation. - Plan Date/Time: 02/14/191943 IMirella, have evaluated this patient and agree with findings/plan as outlined by consultant intern resident. Pertinent changes/additions are listed here. Left distal thigh cellulitis vs. erisypelas - Patient has not failed outpatient antibiotics; however, given multiple comorbidities and rapid progression of erythema, patient admitted for IV antibiotics. - Given well differentiated area of erythema and slightly raised, may be more consistent with erisypelas - Patient with history of recurrent cellulitis - Will Continue Vancomycin (1) and rocephin (02/14) to cover for MRSA and beta hemolytic streptococci - Area of erythema was marked; will monitor for regression - Consider switching to oral antibiotics if patient appears improved - Dopplers negative for DVT - CT lower extremity negative for abscess See consultant intern H&P for chronic problems. DVT: Lovenox Code Status: DNI-Cardiac only Dispo: Stable. Admit to telemetry.
[2019-02-14] MEDS ORDERED: cefTRIAXone\\ROCEPHIN 2 GM VIAL ONE (20:21)
[2019-02-14] MEDS ORDERED: Senokot S 8.6-50 MG TAB PO PRN (21:09)
[2019-02-14] MEDS ORDERED: HumaLOG 300 UNITS/3 ML VIAL SC PRN ×2 (21:09)
[2019-02-14] MEDS ORDERED: Dextrose 5% in Water 1,000 ML IV PRN (21:09)
[2019-02-14] MEDS ORDERED: Dextrose 50% Abboject 50 ML SYRINGE SLOW IVP PRN (21:09)
[2019-02-14 22:03] VITALS: BMI 38.7
--- NOTE | 2019-02-14 23:18 | CT ---
CT of left thigh performed with contrast enhancement: HISTORY: Cellulitis to thigh. Concern for abscess. COMPARISON: None. FINDINGS: There are cellulitis type changes with edema changes within the subcutaneous fat most promi nently along the anterior aspect of the thigh. No signs of any compartment syndrome. No abscess collection. Mildly prominent inguinal lymph nodes are probably all reactive. There are no significant bony findings. IMPRESSION: Cellulitis changes.
[2019-02-15] MEDS ORDERED: Albuterol Sulfate 1.25 MG/3 ML NEB NEB PRN (00:30)
[2019-02-15] MEDS ORDERED: PROVENTIL INHALER 6.7 G (200 INHALATIONS) INH PRN ×2 (00:30→17:13)
[2019-02-15] MEDS ORDERED: tiZANidine HCl 4 MG TAB PO SCH (01:00)
[2019-02-15] MEDS: Vancomycin HCl 1.75 GM in Sodium Chloride 0.9% 500 ML IVPB SCH ×2 (01:02→12:18)
[2019-02-15] MEDS: tiZANidine HCl 4 MG TAB PO SCH ×2 (01:02→22:18)
[2019-02-15] MEDS: Acetaminophen 325 MG TAB PO PRN ×3 (01:02→17:43)
[2019-02-15 04:50] LABS: #Eosinphils 0.1 thou/uL (0.0-0.7); #Lymphocytes 0.8 thou/uL (1.20-3.40); #Monocytes 0.7 thou/uL (0.11-0.59); %Basophils 0.2 % (0.0-1.0); %Eosinophils 0.9 % (0.0-10.0); %Lymphocytes 8.2 % (21.0-51.0); %Monocytes 7.7 % (0.0-10.0); Hemoglobin 11.1 g/dL (12.0-16.0); Mean Corpuscular HGB CONC 31.2 g/dL (32.0-36.0); Mean Corpuscular Hemoglobin 27.3 pg (27.0-31.0); Mean Corpuscular Volume 87.6 fL (78.0-98.0); Mean Platelet Volume 8.5 fL (7.4-10.4); Platelet Count 160 thou/uL (130-400); RBC Distribution Width 15.4 % (11.5-14.5); Red Blood Cell (RBC) Count 4.04 mill/uL (4.20-5.40); White Blood Cell (WBC) Count 9.6 thou/uL (4.8-10.8)
[2019-02-15 05:07] LABS: Anion Gap 13 mmol/L (10-20); BUN (Urea Nitrogen) 26 mg/dL (9.8-20.1); Calc. Creatinine Clearance 145 mL/min (70-130); Calcium 8.3 mg/dL (7.8-10.44); Carbon Dioxide 23 mmol/L (22-29); Chloride 108 mmol/L (98-107); Estimated GFR-MDRD 74; Glucose 150 mg/dL (70-105); Sodium 140 mmol/L (136-145)
[2019-02-15] MEDS ORDERED: Nicotine 21 MG PATCH TD PRN (05:28)
[2019-02-15] MEDS: Mometasone/Formoterol 120 PUFF INHALER INH SCH ×2 (07:33→19:22)
[2019-02-15] MEDS ORDERED: Furosemide 40 MG TAB PO SCH (09:00)
[2019-02-15] MEDS ORDERED: Enoxaparin Sodium 40 MG/0.4 ML SYRINGE SC SCH (09:00)
[2019-02-15] MEDS ORDERED: Acetaminophen ER (8hr) 650 MG TAB PO SCH (09:00)
--- NOTE | 2019-02-15 11:47 | HP ---
I have examined the patient. I have discussed the case with Dr. Rosi Live and agree with her assessment and plan. HISTORY OF PRESENT ILLNESS: Briefly, Ms. Terrazas is a 54-year-old white female with a history of diabetes, heart failure, COPD, hypertension, and tobacco abuse who presents with a warm red area on the left anterior thigh. She states she has a history of stasis dermatitis and seems to get cellulitis in this area frequently. PHYSICAL EXAMINATION: GENERAL: She appears awake, alert, in no distress. VITAL SIGNS: Her temperature is 98 degrees, blood pressure is 115/60, respirations 16. EARS, NOSE, AND THROAT: No erythema or exudate. NECK: Supple. CARDIAC: Heart rhythm regular. No gallop or murmur. LUNGS: Clear without rales or wheezes. ABDOMEN: Flat and soft. EXTREMITIES: There is a very erythematous, very warm to touch area just above the left knee of the left anterior thigh measuring approximately 10 x 10 cm. This seems to be consistent with acute cellulitis and possibly an early abscess formation, although CT did not demonstrate this. LABORATORY DATA: CBC: White count is 9600, hemoglobin 11.1, hematocrit 35.4. Chemistries: Sodium 141, potassium 4.3, chloride 107, bicarb 21, BUN 18, creatinine 0.77. ASSESSMENT: Acute cellulitis. PLAN: Continue broad-spectrum antibiotics, moist compresses. Job ID: [id number]
[2019-02-15] MEDS ORDERED: cefTRIAXone\\ROCEPHIN 2 GM in Sodium Chloride 0.9% 100 ML IVPB SCH (21:00)
[2019-02-15 22:16] VITALS: BP 150/67; TEMP 98.2
[2019-02-15] MEDS ORDERED: Ketorolac Tromethamine 30 MG/ML VIAL IVP PRN (23:26)
--- NOTE | 2019-02-16 01:16 | PDOC.EVN ---
Event Note - Event Note Event Note: Paged in regards to patient's request for pain medications. She stated that she had severe lower back pain (chronic) and her cellulitis was hurting. She takes Tylenol at home. Tylenol was in her medication list. Added Toradol. Patient was not pleased with options and decided to leave AMA. Sent prescription for Augmentin BID for 7 days. Recommend outpatient follow up.
--- NOTE | 2019-02-16 11:41 | DIS ---
DATE OF ADMISSION: 02/14/2019 DATE OF DISCHARGE: 02/15/2019 The patient left AMA on 02/16/2019. ADMITTING RESIDENT: Rosi Live MD ADMITTING ATTENDING: Shaun Calhoun MD DISCHARGE RESIDENT: Rosi Live MD DISCHARGE ATTENDING: Tish Johansen MD CONSULTS: None. PROCEDURES: None. PRIMARY DIAGNOSIS: Cellulitis of left lower extremity. SECONDARY DIAGNOSES: Right pleural effusion, preserved ejection fraction heart failure, chronic obstructive pulmonary disease, type 2 diabetes, chronic back pain, hypertension, depression, and tobacco abuse. DISCHARGE MEDICATIONS: 1. Augmentin one tablet p.o. b.i.d. 2. 650mg acetaminophen p.o. b.i.d. 3. Two puffs albuterol inhaled p.r.n. 4. Two puffs Symbicort inhaled b.i.d. 5. 40 mg Lasix p.o. daily. 6. 5 mg glipizide p.o. daily. 7. 100 mg sertraline p.o. daily. 8. 1 mg tizanidine p.o. at bedtime. DISCONTINUED MEDICATIONS: 1. Vancomycin. 2. Ceftriaxone. 3. Toradol. 4. Nicotine patch. HISTORY OF PRESENT ILLNESS/HOSPITAL COURSE: The patient is a 54-year-old female with past medical history of type 2 diabetes, CHF, COPD, hypertension, back pain , tobacco abuse, who was seen in the ER and found to have rapidly extending left thigh cellulitis that was slightly indurated. She had a lower extremity CT done that demonstrated cellulitis with no abscess. She also had a vascular ultrasound done that demonstrated no evidence of DVT in the left lower extremity. She had a chest x-ray that demonstrated cardiomegaly with mild pulmonary edema changes and moderate right pleural effusion. CTA chest performed demonstrated no evidence for PE, moderately sized right pleural effusion, splenomegaly. She was started on vancomycin and ceftriaxone and was monitored for improvement before being switched over to oral antibiotics and sent home. On the early childhood education specialist of February 16, 2019, the patient had asked for pain medication for her back, but she was only on Tylenol at home for her chronic back pain. She was given Toradol at that time, but refused the Toradol and left against medical advise for further antibiotic therapy for her cellulitis. In order to provide care for the patient despite her decision to leave AMA, an antibiotic was prescribed for her to be able to miner pick outpatient to continue antibiotic therapy for her cellulitis. If she had stayed in the hospital, further IV antibiotics would have been encouraged. The patient had accepted the risk of leaving against medical advice and left on the morning of February 16, 2019. DISPOSITION: Guarded. DISCHARGE INSTRUCTIONS: 1. Location: Home. 2. Diet: Heart healthy, carb conscious. 3. Activity: As tolerated. 4. Followup: up with PCP within 3 days and return to the ER if any worsening of the cellulitis does occur or if she reconsiders and would like IV antibiotic therapy for her cellulitis. Job ID: [id number] MTDD
--- NOTE | 2019-02-17 21:59 | PQF ---
LAUREN PEARSON ANNA MD [id number] CLINICAL DOCUMENTATION CLARIFICATION FORM: POST DISCHARGE Addendum to original discharge summary date: ____ Late entry note date: __ DATE:02/17/2019 ATTN: INEZ PEÑA MD Please exercise your independent, professional judgment in responding to the clarification form. Clinical indicators are provided on the bottom of this form for your review Please check appropriate box(s): [ ] Left lower extremity cellulitis is due to Diabetes [ ] Left lower extremity cellulitis is not due to Diabetes [ ] Other diagnosis [ ] Unable to determine In addition, please specify: Present on Admission (POA): [ ] Yes [ ] No [ ] Unable to determine For continuity of documentation, please document condition throughout progress notes and discharge summary. Thank You. CLINICAL INDICATORS - SIGNS / SYMPTOMS / LABS Cellulitis of LLE-Documented in Family medicine H&P on 02/14 by Rosi Live MD US done in ED did not show significant fluid collection for drainage,CT show small abscess-Documented in Family medicine H&P on 02/14 by Rosi Live MD Type 2 diabetes mellitus without complications-Documented in Family medicine H& P on 02/14 by Rosi Live MD Glucose-141 mg/dl-Documented in Family medicine H&P on 02/14 by Rosi Live MD RISKS: Type 2 diabetes mellitus without complications-Documented in Family medicine H& P on 02/14 by Rosi Live MD TREATMENT: Venous Doppler and CT were negative for DVT-Documented in [facility] medicine H&P on 02/14 by Rosi Live MD Will main area and monitor for improvement with antibiotic therapy-Documented in Family medicine H&P on 02/14 by Rosi Live MD On vancomycin and Rocephin empirically-Documented in Family medicine H&P on by Rosi Live MD Glucagon 1mg IM-Medication snapshot [employer] Winform Viewer (This form is maintained as a part of the permanent medical record) 2014 [employer]. All Rights Reserved Marlee [email or web address] [not provided] MTDD
--- NOTE | 2019-02-24 07:04 | PQF ---
LAUREN PEARSON ANNA MD [id number] CLINICAL DOCUMENTATION CLARIFICATION FORM: POST DISCHARGE Addendum to original discharge summary date: ____ Late entry note date: __ DATE: 02/24/2019 ATTN: INEZ PEÑA MD Please exercise your independent, professional judgment in responding to the clarification form. Clinical indicators are provided on the bottom of this form for your review Please check appropriate box(s): HEART FAILURE: [ ] Acute diastolic heart failure [ ] Acute on chronic diastolic heart failure [ ] Chronic diastolic heart failure [ ] Other diagnosis [ ] Unable to determine In addition, please specify: Present on Admission (POA): [ ] Yes [ ] No [ ] Unable to determine For continuity of documentation, please document condition throughout progress notes and discharge summary. Thank You. CLINICAL INDICATORS - SIGNS / SYMPTOMS / LABS HFpEF-Documented in Family medicine H&P on 02/14 by Rosi Live MD EF 50-55% in 07/2018-Documented in Family medicine H&P on 02/14 by Rosi Live MD BNP-282 -Documented in Family medicine H&P on 02/14 by Rosi Live MD Chest x ray-Cardiomegaly with mild pulmonary edema changes and moderate right pleural effusion-Documented in Family medicine H&P on 02/14 by Rosi Live MD Right pleural effusion, preserved ejection fraction heart failure-Documented in Discharge summary on 02/15 by Pasquale Mcclain RISKS: HTN-Documented in Family medicine H&P on 02/14 by Rosi Live MD Chest x ray-Cardiomegaly with mild pulmonary edema changes and moderate right pleural effusion-Documented in Family medicine H&P on 02/14 by Rosi Live MD TREATMENTS: on Lasix po 40 mg Daily -Documented in Family medicine H&P on 02/14 by Rosi Live MD [employer] Laboratory Supervisor [employer] (This form is maintained as a part of the permanent medical record) 2014 [employer]. All Rights Reserved Marlee [email or web address] [not provided] MTDD
--- NOTE | 2019-02-27 11:43 | EKG ---
Test Reason : Blood Pressure : / mmHG Vent. Rate : 072 BPM Atrial Rate : 072 BPM P-R Int : 150 ms QRS Dur : 094 ms QT Int : 408 ms P-R-T Axes : 000 157 077 degrees QTc Int : 446 ms Normal sinus rhythm with sinus arrhythmia Right axis deviation Abnormal ECG Confirmed by MINESH MAZA ([id number]), supervising film or videotape editor [place] FOSS ([id number]) on 02/27/2019 11:43:42 AM Referred By: Confirmed By:MINESH MAZA
== END 2019-02-15 23:40 | disposition left against medical advice (07) | DRG 603 ==
LOC: ERS 15:32 → 2NO 20:27
PROVIDERS: ADMIT Family Medicine; ATTEND Family Medicine
DX: L03.116 Cellulitis of left lower limb (principal); I50.30 Unspecified diastolic (congestive) heart failure; Z68.42 Body mass index [BMI] 45.0-49.9, adult; J90 Pleural effusion, not elsewhere classified; J44.9 Chronic obstructive pulmonary disease, unspecified; E11.9 Type 2 diabetes mellitus without complications; F32.9 Major depressive disorder, single episode, unspecified; F17.200 Nicotine dependence, unspecified, uncomplicated; M54.9 Dorsalgia, unspecified; G89.29 Other chronic pain; I11.0 Hypertensive heart disease with heart failure; R16.1 Splenomegaly, not elsewhere classified; Z53.29 Procedure and treatment not carried out because of patient's decision for other reasons; Z90.710 Acquired absence of both cervix and uterus; Z85.42 Personal history of malignant neoplasm of other parts of uterus; E66.01 Morbid (severe) obesity due to excess calories
CPT/HCPCS: 36415; 36416; 71045; 71275; 80048; 80053; 83880; 84484; 85025; 85379; 87040; 93005; 96361; 96374; 96375; J0696; J1650; J1885; J3010; J3370; J3490; J7050; Q9967

== ENCOUNTER 2019-02-18 13:33 | Inpatient (IN) | payer OTHER ==
[2019-02-18] MEDS ORDERED: Iopamidol-370 76% 500 ML 1 ML ONE (13:43)
[2019-02-18 14:37] LABS: #Basophils 0.1 thou/uL (0.0-0.2); #Eosinphils 0.1 thou/uL (0.0-0.7); #Lymphocytes 0.9 thou/uL (1.20-3.40); #Monocytes 0.5 thou/uL (0.11-0.59); #Neutrophils 7.7 thou/uL (1.40-6.50); %Basophils 0.7 % (0.0-1.0); %Eosinophils 0.9 % (0.0-10.0); %Lymphocytes 9.3 % (21.0-51.0); %Monocytes 5.6 % (0.0-10.0); %Neutrophils 83.6 % (42.0-75.0); Mean Corpuscular HGB CONC 31.4 g/dL (32.0-36.0); Mean Corpuscular Hemoglobin 27.8 pg (27.0-31.0); Mean Corpuscular Volume 88.5 fL (78.0-98.0); Mean Platelet Volume 7.8 fL (7.4-10.4); Platelet Count 239 thou/uL (130-400); RBC Distribution Width 15.4 % (11.5-14.5); White Blood Cell (WBC) Count 9.2 thou/uL (4.8-10.8)
[2019-02-18] MEDS ORDERED: Piperacillin/Tazobactam 4.5 GM VIAL ONE (14:43)
[2019-02-18 15:01] LABS: ALT (SGPT) 34 U/L (8-55); AST (SGOT) 44 U/L (5-34); Albumin 2.8 g/dL (3.5-5.0); Alkaline Phosphatase 342 U/L (40-110); Anion Gap 14 mmol/L (10-20); BUN (Urea Nitrogen) 16 mg/dL (9.8-20.1); Bilirubin, Total 0.5 mg/dL (0.2-1.2); Calc. Creatinine Clearance 0 mL/min (70-130); Calcium 8.7 mg/dL (7.8-10.44); Carbon Dioxide 21 mmol/L (22-29); Chloride 108 mmol/L (98-107); Estimated GFR-MDRD 82; Globulin 4.5 g/dL (2.4-3.5); Glucose 205 mg/dL (70-105); Potassium 3.9 mmol/L (3.5-5.1); Protein, Total 7.3 g/dL (6.0-8.3); Sodium 139 mmol/L (136-145)
[2019-02-18] MEDS ORDERED: Lidocaine 1% w/Epinephrine 1:100K 20 ML VIAL ONE (15:26)
[2019-02-18] MEDS ORDERED: Fentanyl 100 MCG/2 ML VIAL ONE (15:30)
--- NOTE | 2019-02-18 15:32 | RAD ---
Exam: Chest one view HISTORY:Shortness of breath. Left leg cellulitis. Comparison: 02/14/2019 FINDINGS: Cardiac silhouette:Cardiomegaly. Aorta: Atherosclerosis of the aorta Pulmonary vessels: Slightly prominent Costophrenic angles: Right-sided pleural effusion, unchanged. LUNGS: Patchy bibasilar opacities, similar to the previous exam. Pneumothorax: None Osseous abnormalities: None IMPRESSION: Congestive heart failure. No significant interval change.
--- NOTE | 2019-02-18 15:39 | PDOC.FPRHP ---
- History of Present Illness Chief Complaint: Left leg cellulitis History of Present Illness: Patient is a 54F with PMHx of DM2, CHF, COPD, HTN, chronic back pain, tobacco abuse who was recently seen for L leg cellulitis and left the hospital AMA the morning of 02/15/2019. She was discharged with a PO Augmentin which she never picked up from the pharmacy because she states that the pharmacy "was out." ED Course: 1.5g vanc, 100mcg fentanyl, 4.5g zosyn, 1L NS - Allergies/Adverse Reactions Allergies Allergy/AdvReac Type Severity Reaction Status Date / Time latex Allergy Hives Verified 02/14/19 22:52 morphine AdvReac Emesis Verified 02/14/19 22:52 TIDE LAUNDRY DETERGENT Allergy Hives Uncoded 02/14/19 22:52 - Home Medications Medication Instructions Recorded Confirmed Type Albuterol Sulfate [Proair HFA] 2 puff INH PRN PRN 08/04/18 02/18/19 History Sertraline HCl 100 mg PO DAILY 08/04/18 02/18/19 History glipiZIDE [glipiZIDE ER] 5 mg PO DAILY 08/04/18 02/18/19 History Budesonide-Formoterol [Symbicort 2 puff INH BID 08/22/18 02/18/19 History 160-4.5] tiZANidine HCl [Tizanidine HCl] 4 mg PO HS 08/22/18 02/18/19 History Albuterol Sulfate [Albuterol 0.63 mg NEB Q4HR PRN 02/05/19 02/18/19 History Sulfate Neb] Furosemide 40 mg PO DAILY #30 tablet 02/08/19 02/18/19 Rx Acetaminophen ER (8hr) [TYLENOL ER 1 tab PO BID #0 02/09/19 02/18/19 Rx (8hr ARTHRITIS PAIN)] - History PMHx: HFpEF COPD DM II Chronic pain HTN Depression Tobacco use PSHx: hysterectomy for cervical/uterine cancer FHx: non-contributory Social: 1 ppd, denies drugs/alcohol, lives with son and ex-boyfriend - Review of Systems General: denies: fever/chills, fatigue Eyes: denies: eye pain, vision changes ENT: denies: nasal congestion, rhinorrhea Respiratory: denies: congestion, shortness of breath Cardiovascular: denies: chest pain, palpitation Gastrointestinal: denies: nausea, vomiting Genitourinary: denies: dysuria, discharge Skin: reports: lesions. denies: rashes Musculoskeletal: denies: pain, tenderness Neurological: denies: syncope, seizure Psychological: denies: anxiety, depression - Vital signs BP: 162/88, Pulse: 102, Resp: 20, Temp: 98.4 (Oral), Pain: 8 (Constant), O2 sat : 100 on (Room Air), Time: 02/18/2019 15:51. weight 115kg - Physical Exam Constitutional: NAD, awake, alert and oriented HEENT: EOMI, grossly normal vision, grossly normal hearing Neck: trachea midline Heart: RRR, normal S1/S2 Lungs: no respiratory distress, other (crackles RLL, chronic) Abdomen: soft, non-tender Musculoskeletal: normal structure, normal tone Neurological: no focal deficit Skin: no rash/lesions, good turgor -Skin: erythema and TTP on LLE extending around the leg and down knee, bandaged wound from drained abscess Psychiatric: normal mood and affect, intact recent and remote memory FMR H&P: Results - Labs Result Diagrams: 02/18/19 14:28 02/18/19 14:14 Lab results: WBC 9.2 thou/uL (4.8-10.8) 02/18/19 14:28 Hgb 12.0 g/dL (12.0-16.0) 02/18/19 14:28 Hct 38.1 % (36.0-47.0) 02/18/19 14:28 MCV 88.5 fL (78.0-98.0) 02/18/19 14:28 Plt Count 239 thou/uL (130-400) 02/18/19 14:28 Neutrophils % 83.6 % (42.0-75.0) H 02/18/19 14:28 Sodium 139 mmol/L (136-145) 02/18/19 14:14 Potassium 3.9 mmol/L (3.5-5.1) 02/18/19 14:14 Chloride 108 mmol/L (98-107) H 02/18/19 14:14 Carbon Dioxide 21 mmol/L (22-29) L 02/18/19 14:14 BUN 16 mg/dL (9.8-20.1) 02/18/19 14:14 Creatinine 0.74 mg/dL (0.6-1.1) 02/18/19 14:14 Glucose 205 mg/dL (70-105) H 02/18/19 14:14 Lactic Acid 2.1 mmol/L (0.5-2.2) 02/18/19 14:06 Calcium 8.7 mg/dL (7.8-10.44) 02/18/19 14:14 Total Bilirubin 0.5 mg/dL (0.2-1.2) 02/18/19 14:14 AST 44 U/L (5-34) H 02/18/19 14:14 ALT 34 U/L (8-55) 02/18/19 14:14 Alkaline Phosphatase 342 U/L (40-110) H 02/18/19 14:14 Serum Total Protein 7.3 g/dL (6.0-8.3) 02/18/19 14:14 Albumin 2.8 g/dL (3.5-5.0) L 02/18/19 14:14 - EKG Interpretation EKG: NSR, RBBB - Radiology Interpretation Chest x-ray Status: report reviewed by me (CHF, no significant interval change) Other Status: report reviewed by me (LLE CT: relatively large abscess in the anterior subcutaneous fat above the knee. No evidence for pyomyositis or extension across the superficial fascia. Extensive cellulitic change. Fibular head/neck fracture with periosteal new bone formation) FMR H&P: A/P - Problem List (1) CHF (congestive heart failure) Current Visit: No Status: Chronic Code(s): I50.9 - HEART FAILURE, UNSPECIFIED (2) COPD (chronic obstructive pulmonary disease) Current Visit: No Status: Chronic (3) Cellulitis and abscess of left leg Current Visit: No Status: Acute Code(s): L03.116 - CELLULITIS OF LEFT LOWER LIMB; L02.416 - CUTANEOUS ABSCESS OF LEFT LOWER LIMB (4) DM type 2 (diabetes mellitus, type 2) Current Visit: No Status: Chronic Qualifiers: Diabetes mellitus terminal supervisor insulin use: without terminal supervisor use Diabetes mellitus complication status: without complication Qualified Code(s): E11.9 - Type 2 diabetes mellitus without complications (5) HTN (hypertension) Current Visit: No Status: Chronic Code(s): I10 - ESSENTIAL (PRIMARY) HYPERTENSION Qualifiers: Hypertension type: essential hypertension Qualified Code(s): I10 - Essential (primary) hypertension (6) Morbid obesity with BMI of 45.0-49.9, adult Current Visit: No Status: Chronic Code(s): E66.01 - MORBID (SEVERE) OBESITY DUE TO EXCESS CALORIES; Z68.42 - BODY MASS INDEX (BMI) 45.0-49.9, ADULT - Plan Patient is a 54F with PMHx of DM2, CHF, COPD, HTN, chronic back pain, tobacco abuse who was recently seen for L leg cellulitis and left the hospital AMA the morning of 02/15/2019, admitted for new L leg abscess and worsening cellulitis #Sepsis due to L leg abscess and cellulitis -CT shows abscess of L leg -I&D in ED -wound culture sent from ED, will utilize sensitivities for abx de-escalation -Started on vanc/zosyn in ED, continue -cellulitis area marked, will continue to monitor for improvement -if lesion worsens can consider repeat imaging for monitoring of abscess recurrence -tachy and rr 20 in ED, WBC wnl -patient does not appear to be in septic shock at this time; not hypotensive -will encourage PO intake for now #Hx of HTN -normotensive currently -not on home meds -will continue to monitor #CHF -EF 50-55% in 07/2018. -chronic RLL crackles; s/p thoracentesis 02/06 that demonstrated transudative findings -CXR stable -will continue home meds at this time and continue to monitor #COPD -continue home meds #DM2 -continue home meds -ACHS -ISS #Tobacco Abuse -nicotine patch -smoking cessation counseling -has been prescribed chantix in the past, uncertain if she is currently taking this -can consider on discharge DVT ppx: lovenox Dispo: inpatient medical for IV abx for worsening left leg abscess and cellulitis; will monitor for improvement and de-escalate abx accordingly Code: Cardiac only-DNI PCP: Audra FMR H&P: Upper Level - Pertinent history 54yo F presents after leaving AMA on 02/15 from previous hospitalization for cellulitis. Was sent augmentin but pt was not able to pick it up. Reports worsening LLE cellulitis since then. PE: vitals notable for hypertension SBP 150s, HR 105, RR20 SKIN: erythema and TTP of LLE surrounding a bandaged wound where abscess was drained, marked, extends past knee - Plan Date/Time: 02/18/191538 I, Girma Bryant pgy2, have evaluated this patient and agree with findings/ plan as outlined by landscape maintenance internship resident. Pertinent changes/additions are listed here. sepsis 2/2 Cellulitis of LLE s/p abcess drainage A- Pt meets sirs criteria by mild tachycardia and RR 20 in ED, WBC wnl. BPs are hypertensive so pt does not require fluids. Abscess is s/p drainage in ED, cultures sent. Pt states that at this time she intends to stay in hospital to completion of her treatment. Venous dopplers and CT were negative for DVT on 02/14. P- Vanc and Zosyn given in ED, will continue -main area and monitor for improvement with antibiotic therapy -f/u wound cultures, will plan to send out on PO ABX per them -PO fluid hydration R pleural effusion A- Likely 2/2 fluid overload considering pt Hx of CHF. S/p thoracentesis 02/06 shows transudative studies, not concerned for infectious etiology. She is asymptomatic, not complaining of any respiratory symptoms. P- monitor pulmonary symptoms HFpEF A- EF 50-55% in 07/2018. P- home lasix po 40mg daily COPD - continue home meds - duonebs prn DM II - continue home meds - SSI initiated Chronic Back Pain - continued home tizanidine H/o HTN, currently normotensive - No home medications. Will monitor VS. Depression - continue sertraline Tobacco Abuse - She was discharged with Chantix, unclear whether she started it or not. Consider restarting on discharge. Addendum - Attending - Attending Attestation Date/Time: 02/18/191920 I personally evaluated the patient and discussed the management with Dr. Giordano/ Renee I agree with the History, Examination, Assessment and Plan documented above with any addition or exceptions noted below. See my event note for details.
[2019-02-18] MEDS ORDERED: Vancomycin 1.5 GRAM/300 ML BAG 1.5 GM in Premix Bag 1 BAG IVPB SCH (16:15)
[2019-02-18] MEDS ORDERED: Dextrose 5% in Water 1,000 ML IV PRN (16:23)
[2019-02-18] MEDS ORDERED: Dextrose 50% Abboject 50 ML SYRINGE SLOW IVP PRN (16:23)
--- NOTE | 2019-02-18 16:28 | CT ---
CT LEFT LOWER EXTREMITY WITH CONTRAST: 02/18/19 HISTORY: Pain. COMPARISON: CT exam 02/14/19. FINDINGS: Within the anterior subcutaneous fat axial image [id number] is a peripherally enhancing abscess measuring 4.1 cm in transverse by an AP dimension of 1.7 cm with a craniocaudal length of nearly 6 cm. Extensiv e cellulitic changes in the superficial fat. The abscess appears to be contained by the overlying in vesting fascia of the musculature. There is some mass effect along the vastus medialis muscle due to this abscess. No definite intramuscular extension or evidence that this abscess has crossed the fasci a. The visualized femur is intact. Mild medial compartment joint space narrowing. There is a fibular head/neck fracture extending to the styloid process. IMPRESSION: 1. Relatively large abscess in the anterior subcutaneous fat above the knee as described. No татьяна dence for pyomyositis or extension across the superficial investing fascia of the anterior compartmen t of the leg. 2. Extensive cellulitic changes. 3. Fibular head/neck fracture with some periosteal new bone formation. POS: CET
[2019-02-18] MEDS ORDERED: HumaLOG 300 UNITS/3 ML VIAL SC PRN (16:29)
--- NOTE | 2019-02-18 16:47 | PDOC.EVN ---
Addendum - Attending - Attending Attestation Date/Time: 02/18/19 9527 I personally evaluated the patient and discussed the management with Dr. Bryant /Pasquale I agree with the History, Examination, Assessment and Plan documented above with any addition or exceptions noted below. 54 yo WF DM2 and recently admitted 3 days ago for cellulitis of left leg and started on IV Abx. Left AMA 2 days ago after she became frustrated with nursing staff. Pain and swelling worsened at home. returned to ER today because of pain. Had abscess on left thigh that was I&D. Exam remarkable for anterior thigh and leg redness. Based on wound photos from previous hospitalization, ulcers unchanged. Admit for IV antibiotics of vanc and zosyn. Monitor swelling and erythema progression. inpatient. >2 midnights.
[2019-02-18] MEDS ORDERED: PROVENTIL INHALER 6.7 G (200 INHALATIONS) INH PRN (17:14)
[2019-02-18] MEDS ORDERED: Ibuprofen 800 MG TAB PO PRN (17:23)
[2019-02-18 17:36] VITALS: BMI 41.3
[2019-02-18 17:53] LABS: Lactic Acid 2.4 mmol/L (0.5-2.2)
[2019-02-18] MEDS ORDERED: Calcium Carbonate 500 MG ChewTAB PO PRN (18:23)
[2019-02-18] MEDS ORDERED: Ondansetron ODT 4 MG TAB PO PRN (18:23)
[2019-02-18] MEDS: Acetaminophen 325 MG TAB PO PRN (19:10)
[2019-02-18] MEDS: Piperacillin/Tazobactam 3.375 GM in Sodium Chloride 0.9% 100 ML IVPB SCH (20:22)
[2019-02-18] MEDS: tiZANidine HCl 4 MG TAB PO SCH (20:23)
[2019-02-18] MEDS: Nicotine 21 MG PATCH TD SCH (20:23)
[2019-02-18] MEDS: Mometasone/Formoterol 120 PUFF INHALER INH SCH (20:36)
[2019-02-19] MEDS: Piperacillin/Tazobactam 3.375 GM in Sodium Chloride 0.9% 100 ML IVPB SCH ×2 (03:08→08:54)
[2019-02-19] MEDS: Acetaminophen 325 MG TAB PO PRN (03:49)
[2019-02-19] MEDS: Vancomycin HCl 1.25 GM in Sodium Chloride 0.9% 250 ML 250 ML IVPB SCH ×2 (03:49→13:20)
--- NOTE | 2019-02-19 05:16 | PDOC.FM ---
- Subjective Subjective: Patient doing well this morning. Had difficulty sleeping last night. Reports that the wound where the abscess was drained drained some serosanguinous fluid last night. Area of cellulitis is not as ttp as it was yesterday, patient believes it has improved. - Objective Vital Signs & Weight: Vital Signs (12 hours) Temp Pulse Resp BP Pulse Ox 02/19/19 04:33 97.8 F 85 18 129/84 100 02/19/19 00:10 97.6 F 90 18 116/66 99 02/18/19 20:36 92 18 98 02/18/19 20:04 99 02/18/19 19:25 97.6 F 95 20 151/70 H 99 02/18/19 17:35 69 18 141/91 H 98 Weight Weight 116.074 kg Result Diagrams: 02/19/19 05:18 02/19/19 05:18 Phys Exam - Physical Examination Constitutional: NAD HEENT: moist MMs, sclera anicteric Neck: supple, full ROM Respiratory: no wheezing slight bibasilar crackles, improved Cardiovascular: RRR, no significant murmur Gastrointestinal: soft, non-tender 1+ pitting edema LLE Neurological: non-focal, moves all 4 limbs Psychiatric: normal affect, A&O x 3 Deviation from normal: Bandaging over abscess c/d/i -: Skin: Left upper thigh: circumferential erythema within margins, pustules Dx/Plan (1) CHF (congestive heart failure) Code(s): I50.9 - HEART FAILURE, UNSPECIFIED Status: Chronic (2) COPD (chronic obstructive pulmonary disease) Status: Chronic (3) Cellulitis and abscess of left leg Code(s): L03.116 - CELLULITIS OF LEFT LOWER LIMB; L02.416 - CUTANEOUS ABSCESS OF LEFT LOWER LIMB Status: Acute (4) DM type 2 (diabetes mellitus, type 2) Status: Chronic Qualifiers: Diabetes mellitus [facility] insulin use: without [facility] use Diabetes mellitus complication status: without complication Qualified Code(s): E11.9 - Type 2 diabetes mellitus without complications (5) HTN (hypertension) Code(s): I10 - ESSENTIAL (PRIMARY) HYPERTENSION Status: Chronic Qualifiers: Hypertension type: essential hypertension Qualified Code(s): I10 - Essential (primary) hypertension (6) Morbid obesity with BMI of 45.0-49.9, adult Code(s): E66.01 - MORBID (SEVERE) OBESITY DUE TO EXCESS CALORIES; Z68.42 - BODY MASS INDEX (BMI) 45.0-49.9, ADULT Status: Chronic - Plan Plan: Patient is a 54F with PMHx of DM2, CHF, COPD, HTN, chronic back pain, tobacco abuse who was recently seen for L leg cellulitis and left the hospital AMA the morning of 02/15/2019, admitted for new L leg abscess and worsening cellulitis #Sepsis due to L leg abscess and cellulitis -CT shows abscess of L leg -I&D in ED -wound culture sent from ED, will utilize sensitivities for abx de-escalation -no organisms seen at this time, will continue to follow -Started on vanc/zosyn in ED, continue -cellulitis area marked, erythema within margins today without expansion; decreased ttp, pustules left inner thigh still present; overall clinical picture appears to be improved -will encourage PO intake for now #Hx of HTN -normotensive currently -not on home meds -will continue to monitor #CHF -EF 50-55% in 07/2018. -respiratory exam improved today -CXR stable -will continue home meds at this time and continue to monitor #COPD -continue home meds #DM2 -continue home meds -ACHS -ISS #Tobacco Abuse -nicotine patch -smoking cessation counseling -has been prescribed chantix in the past, uncertain if she is currently taking this -can consider on discharge DVT ppx: lovenox Dispo: inpatient medical for IV abx for worsening left leg abscess and cellulitis; will monitor for improvement and de-escalate abx accordingly; final wound culture results pending Code: Cardiac only-DNI PCP: Audra
[2019-02-19 05:35] LABS: #Basophils 0.1 thou/uL (0.0-0.2); #Eosinphils 0.2 thou/uL (0.0-0.7); #Lymphocytes 0.9 thou/uL (1.20-3.40); #Monocytes 0.5 thou/uL (0.11-0.59); #Neutrophils 5.2 thou/uL (1.40-6.50); %Basophils 1.1 % (0.0-1.0); %Eosinophils 2.8 % (0.0-10.0); %Lymphocytes 12.6 % (21.0-51.0); %Neutrophils 76.5 % (42.0-75.0); Hemoglobin 11.1 g/dL (12.0-16.0); Mean Corpuscular Hemoglobin 27.3 pg (27.0-31.0); Mean Corpuscular Volume 87.9 fL (78.0-98.0); Mean Platelet Volume 7.5 fL (7.4-10.4); Platelet Count 237 thou/uL (130-400); RBC Distribution Width 15.2 % (11.5-14.5); Red Blood Cell (RBC) Count 4.07 mill/uL (4.20-5.40); White Blood Cell (WBC) Count 6.8 thou/uL (4.8-10.8)
[2019-02-19 06:00] LABS: Anion Gap 14 mmol/L (10-20); BUN (Urea Nitrogen) 17 mg/dL (9.8-20.1); Calc. Creatinine Clearance 181 mL/min (70-130); Calcium 8.6 mg/dL (7.8-10.44); Carbon Dioxide 20 mmol/L (22-29); Chloride 109 mmol/L (98-107); Estimated GFR-MDRD Greater than 90; Glucose 90 mg/dL (70-105); Potassium 3.7 mmol/L (3.5-5.1); Sodium 139 mmol/L (136-145)
[2019-02-19] MEDS: Mometasone/Formoterol 120 PUFF INHALER INH SCH ×2 (07:53→20:03)
[2019-02-19] MEDS: Furosemide 40 MG TAB PO SCH (08:53)
[2019-02-19] MEDS: Enoxaparin Sodium 40 MG/0.4 ML SYRINGE SC SCH (08:53)
[2019-02-19] MEDS ORDERED: FLU VACC QS2019-20(6MOS UP)/PF 60 MCG/0.5 ML SYRINGE IM ONE (09:00)
--- NOTE | 2019-02-19 12:04 | PRG ---
DATE OF SERVICE: 02/19/2019 ADDENDUM: Addendum to the note of Dr. Sarahi Giordano. I have examined the patient and agree with the assessment and plan of Dr. Giordano. Ms. Terrazas is a 54-year-old lady, who left the hospital AMA several days ago with a cellulitis of her left lower thigh. She presented again to our ER yesterday and subsequently readmitted for antibiotics as she had now developed a small abscess in this area of initial cellulitis. This morning, she is still in a great deal of discomfort, but her early abscess has been I and D'd. She is on intravenous vancomycin. Right now, her vital signs are stable and that she is afebrile. Pulse rate 85, blood pressure 145/78, and her room air pulse ox is 99%. For now, we will continue with wound care and IV antibiotics. Job ID: [id number]
[2019-02-19] MEDS: Nicotine 21 MG PATCH TD SCH (18:04)
[2019-02-19 19:09] LABS: Vancomycin, Trough 21.9 ug/mL
[2019-02-19] MEDS: Ketorolac Tromethamine 30 MG/ML VIAL IVP SCH (19:25)
[2019-02-19] MEDS: tiZANidine HCl 4 MG TAB PO SCH (19:25)
[2019-02-19] MEDS: Vancomycin 1.5 GRAM/300 ML BAG 1.5 GM in Premix Bag 1 BAG IVPB SCH (20:27)
[2019-02-20] MEDS: Ketorolac Tromethamine 30 MG/ML VIAL IVP SCH ×4 (01:04→18:16)
--- NOTE | 2019-02-20 05:56 | PDOC.FM ---
- Subjective Subjective: pt denies any complaints this morning. toradol has been addressing her pain. States that the cellulitis area is less tender today and is feeling better. pt is concerned about her dx of sepsis as her mother from this. Explained the disease process and her current medical status. She is agreeable to continue IV abx to address her cellulitis and bacteremia. - Objective Vital Signs & Weight: Vital Signs (12 hours) Temp Pulse Resp BP Pulse Ox 02/19/19 20:05 96 02/19/19 20:03 97 02/19/19 20:00 97 02/19/19 19:59 98.3 F 101 H 20 137/84 97 Weight Admit Weight 116.074 kg Weight 116.074 kg I&O: 02/18/19 02/19/19 02/20/19 06:59 06:59 06:59 Intake Total 1200 Balance 1200 Result Diagrams: 02/19/19 05:18 02/19/19 05:18 Phys Exam - Physical Examination Constitutional: NAD HEENT: moist MMs Neck: full ROM Respiratory: no wheezing, no rales, no rhonchi, clear to auscultation bilateral Cardiovascular: RRR, no significant murmur Gastrointestinal: soft Obese edema of LLE Neurological: moves all 4 limbs Psychiatric: normal affect, A&O x 3 Deviation from normal: 2 areas of erythema to left mid thigh and left lower extremity -: folliculitis of left medial thigh improving, erythema margins retreating Dx/Plan (1) Cellulitis and abscess of left leg Code(s): L03.116 - CELLULITIS OF LEFT LOWER LIMB; L02.416 - CUTANEOUS ABSCESS OF LEFT LOWER LIMB Status: Acute (2) CHF (congestive heart failure) Code(s): I50.9 - HEART FAILURE, UNSPECIFIED Status: Chronic (3) COPD (chronic obstructive pulmonary disease) Status: Chronic (4) DM type 2 (diabetes mellitus, type 2) Status: Chronic Qualifiers: Diabetes mellitus termite helper insulin use: without intermediate use Diabetes mellitus complication status: without complication Qualified Code(s): E11.9 - Type 2 diabetes mellitus without complications (5) HTN (hypertension) Code(s): I10 - ESSENTIAL (PRIMARY) HYPERTENSION Status: Chronic Qualifiers: Hypertension type: essential hypertension Qualified Code(s): I10 - Essential (primary) hypertension (6) Morbid obesity with BMI of 45.0-49.9, adult Code(s): E66.01 - MORBID (SEVERE) OBESITY DUE TO EXCESS CALORIES; Z68.42 - BODY MASS INDEX (BMI) 45.0-49.9, ADULT Status: Chronic - Plan Plan: Patient is a 54F with PMHx of DM2, CHF, COPD, HTN, chronic back pain, tobacco abuse who was recently seen for L leg cellulitis and left the hospital AMA the morning of 02/15/2019, admitted for new L leg abscess and worsening cellulitis Sepsis due to L leg abscess / cellulitis, Bacteremia -CT shows abscess of L leg, I&D in ED - wound culture growing MRSA, susceptibilties resulted - will continue vanc for now and plan for transition to [facility] -Blood cultures + for G+ cocci x2 -Continue IV Vanc -cellulitis area marked, erythema within margins today without expansion; decreased ttp, pustules left inner thigh still present; overall clinical picture appears to be improved -Echo ordered Hx of HTN -normotensive currently -not on home meds -will continue to monitor CHF -EF 50-55% in 07/2018. -will continue home meds at this time and continue to monitor COPD -continue home meds DM2 -continue home meds -ACHS -ISS Tobacco Abuse -nicotine patch -smoking cessation counseling -has been prescribed chantix in the past, uncertain if she is currently taking this, can consider on discharge DVT ppx: lovenox Dispo: inpatient medical for IV abx for worsening left leg abscess and cellulitis; abx de-escalated to vancomycin. Further evaluation of staph bacteremeia. Code: Cardiac only-DNI PCP: Audra Addendum - Attending - Attending Attestation Date/Time: 02/20/19 1203 I personally evaluated the patient and discussed the management with Dr. Harding I agree with the History, Examination, Assessment and Plan documented above with any addition or exceptions noted below. Patient for echocardiogram. I recommend with setting of acute infection basal insulin plus SS for improved BS control.
[2019-02-20] MEDS: Mometasone/Formoterol 120 PUFF INHALER INH SCH ×2 (06:36→19:31)
[2019-02-20] MEDS ORDERED: Morphine 2 MG/ML SYRINGE SLOW IVP SCH (09:00)
[2019-02-20] MEDS ORDERED: Ketorolac Tromethamine 30 MG/ML VIAL IVP SCH (09:00)
[2019-02-20] MEDS: Furosemide 40 MG TAB PO SCH (09:30)
[2019-02-20] MEDS: Enoxaparin Sodium 40 MG/0.4 ML SYRINGE SC SCH (09:30)
[2019-02-20] MEDS: metFORMIN 500 MG TAB PO SCH ×2 (10:00→18:15)
[2019-02-20] MEDS: Vancomycin 1.5 GRAM/300 ML BAG 1.5 GM in Premix Bag 1 BAG IVPB SCH ×2 (11:20→20:37)
[2019-02-20] MEDS: Nicotine 21 MG PATCH TD SCH (18:17)
[2019-02-20] MEDS: tiZANidine HCl 4 MG TAB PO SCH (20:37)
[2019-02-20] MEDS ORDERED: Insulin Glargine 24 UNITS in Pre-Filled Syringe 1 EACH SC SCH (21:00)
[2019-02-20] MEDS ORDERED: Insulin Glargine 35 UNITS in Pre-Filled Syringe 1 EACH SC SCH (21:00)
--- NOTE | 2019-02-20 21:28 | CON ---
DATE OF CONSULTATION: 02/20/2019 REASON FOR CONSULTATION: Bacteremia and soft tissue infection. HISTORY OF PRESENT ILLNESS: A 54-year-old, whom I had seen recently, when she presented with a history of morbid obesity; type 2 diabetes; cervical and uterine cancer, in remission; prior thromboembolism as well as COPD with pneumonia. In August last year, I saw her because of residual radiological changes associated with a presumed case of CAP. This time, she came in with inflammatory process in the left lower anterior thigh associated with erythema and purulent exudate. She had been admitted on February 14 and at that time, the diagnosis had been acute cellulitis. A lower extremity CT was done on February 14, which showed changes consistent with cellulitis. The patient left the hospital against medical advice. She was prescribed an oral antimicrobial because of the fact that she left against medical advice and this was Augmentin. After discharge, the patient developed worsening of the inflammatory changes associated with general malaise and fever. No headaches. No visual symptoms, sore throat, odynophagia, or dysphagia. No dental pain, although she has marked dental decay. She has chronic low back pain associated with previous fractures, which is reportedly unchanged from prior experience. No genitourinary symptoms. No diarrhea. No neurological symptoms. MEDICAL HISTORY: Morbid obesity; COPD; type 2 diabetes; osteoarthritis; community-acquired pneumonia; chronic smoking; cervical and uterine cancer, status post resection through hysterectomy. FAMILY HISTORY: Noncontributory. SOCIAL HISTORY: Still smoking. Does not drink alcoholic beverages. No drug use reported. CURRENT MEDICATIONS: 1. Proventil. 2. Tums. 3. Dextrose. 4. Lovenox. 5. Lasix. 6. Insulin. 7. Glucophage. 8. Dulera. 9. Ondansetron. 10. Vancomycin. PHYSICAL EXAMINATION: VITAL SIGNS: T-max 98.3, blood pressure 144/82, pulse 95, respirations 22, and O2 saturation 96%. SKIN: With the inflammatory area in the distal anterior thigh right above the knee on left side with circumferential band of erythema extending from that site. The area has been I and D'd in the emergency room. There is a small elliptical incision with surrounding erythema noted. She has a peripheral IV access and is voiding in the toilet. Some intertriginous maceration below the abdominal fold area. LYMPH: No lymphadenopathy. HEENT: Ocular movements conjugate. Sclerae white. Pupils are equal. Oral cavity with only few remaining teeth with marked decay and gum disease. No oral mucosal lesions noted. NECK: Supple. No jugular vein distention. BACK: No back tenderness. LUNGS: Symmetric. Clear breath sounds. HEART: S1 and S2, regular rate. No S3, S4, or murmurs. ABDOMEN: Soft, not distended or tender. No ascites. Abdominal subcutaneous panniculus is quite prominent. : No bladder distention. MUSCULOSKELETAL: No joint inflammatory activity noted. EXTREMITIES: The area above the knee soft tissues is less erythematous than previously noted. There is stasis dermatitis in the left leg distal aspect, which is not painful. Pulses are diminished in dorsalis pedis but palpable. Cap refill is normal. Able to move extremities without limitations. NEUROLOGIC: Cognitive function appears to be intact. LABORATORY DATA: White cell count, 9.2 and 6.8; hemoglobin 11; platelets 237 with initially 82% neutrophils and now 76%. Sodium 139 and creatinine 0.65. Bilirubin 0.5, AST 44, ALT 34, alkaline phosphatase 342 with albumin 2.8 and globulin 4.5. Vancomycin trough 21.9. Microbiology with 2 sets of blood cultures with Staphylococcus species, one in the left hand. The organism by Verigene identification appears to be Staph epidermidis. The organism from the abscess is MRSA. The organism is susceptible to the usual antimicrobials including vancomycin and vancomycin RENEA is 1. ASSESSMENT: 1. Morbid obesity. 2. Chronic obstructive pulmonary disease. 3. Prior pneumonia. 4. Abscess, left lower anterior thigh subcutaneous tissues secondary to methicillin-resistant Staphylococcus aureus. 5. Bacteremia. DISCUSSION: The bacteremia is likely a contamination of the sample rather than a true bacteremia since it has been identified as Staphylococcus epidermidis. I do not believe this is a meaningful finding. The organism in the abscess is MRSA and as soon as the inflammatory process improves further, then we will be able to switch her to oral antimicrobial therapy. I would advise a combination of rifampin and doxycycline for discharge planning for another seven days, maybe another 2 weeks. I do not see any evidence of distant dissemination from this strain, and we will have to continue monitoring her lower back to make sure that there is not an exacerbation since frequently lower backs become colonized by Staphylococcus aureus. Job ID: [id number]
[2019-02-21] MEDS: Ketorolac Tromethamine 30 MG/ML VIAL IVP SCH ×5 (00:58→23:38)
[2019-02-21 05:11] LABS: #Basophils 0.1 thou/uL (0.0-0.2); #Eosinphils 0.2 thou/uL (0.0-0.7); #Lymphocytes 0.8 thou/uL (1.20-3.40); #Monocytes 0.3 thou/uL (0.11-0.59); #Neutrophils 4.6 thou/uL (1.40-6.50); %Basophils 1.5 % (0.0-1.0); %Eosinophils 3.4 % (0.0-10.0); %Lymphocytes 12.7 % (21.0-51.0); %Monocytes 5.1 % (0.0-10.0); %Neutrophils 77.2 % (42.0-75.0); Hemoglobin 10.8 g/dL (12.0-16.0); Mean Corpuscular HGB CONC 31.7 g/dL (32.0-36.0); Mean Corpuscular Hemoglobin 28.1 pg (27.0-31.0); Mean Corpuscular Volume 88.4 fL (78.0-98.0); Platelet Count 217 thou/uL (130-400); RBC Distribution Width 15.1 % (11.5-14.5); Red Blood Cell (RBC) Count 3.85 mill/uL (4.20-5.40)
[2019-02-21 05:33] LABS: Anion Gap 12 mmol/L (10-20); BUN (Urea Nitrogen) 17 mg/dL (9.8-20.1); Calc. Creatinine Clearance 166 mL/min (70-130); Calcium 8.4 mg/dL (7.8-10.44); Carbon Dioxide 23 mmol/L (22-29); Chloride 108 mmol/L (98-107); Estimated GFR-MDRD 86; Glucose 195 mg/dL (70-105); Sodium 139 mmol/L (136-145)
--- NOTE | 2019-02-21 05:58 | PDOC.FM ---
- Subjective Subjective: Pt notes continued improvement in her LLE erythema and pain. States that it continues to swell because she is walking less. Denies any fevers, chills, SOB. She apparently refused her insulin again last night. After stressing the importance of glycemic control the pt was agreeable to receiving her dose this morning. - Objective Vital Signs & Weight: Vital Signs (12 hours) Temp Pulse Resp BP BP Pulse Ox 02/21/19 04:36 98.2 F 103 H 20 118/73 98 02/20/19 23:27 97.7 F 91 20 165/74 H 94 L 02/20/19 20:00 97.7 F 91 20 165/74 H 94 L 02/20/19 19:53 97.5 F L 93 18 124/65 96 Weight Admit Weight 116.074 kg Weight 116.074 kg I&O: 02/19/19 02/20/19 02/21/19 06:59 06:59 06:59 Intake Total 1200 1020 Balance 1200 1020 Result Diagrams: 02/21/19 04:51 02/21/19 04:51 Phys Exam - Physical Examination Constitutional: NAD HEENT: moist MMs, sclera anicteric Neck: full ROM Respiratory: no wheezing, no rales, no rhonchi, clear to auscultation bilateral Cardiovascular: RRR, no significant murmur, no rub Gastrointestinal: soft, non-tender Musculoskeletal: pulses present Left 3+, right 2+ pitting edema Neurological: non-focal, moves all 4 limbs Psychiatric: normal affect, A&O x 3 Deviation from normal: Erythema seems mostly unchanged from yesterday -: Pustules of left medial thigh have resolved, no spreading infection noted Dx/Plan (1) Cellulitis and abscess of left leg Code(s): L03.116 - CELLULITIS OF LEFT LOWER LIMB; L02.416 - CUTANEOUS ABSCESS OF LEFT LOWER LIMB Status: Acute (2) CHF (congestive heart failure) Code(s): I50.9 - HEART FAILURE, UNSPECIFIED Status: Chronic (3) COPD (chronic obstructive pulmonary disease) Status: Chronic (4) DM type 2 (diabetes mellitus, type 2) Status: Chronic Qualifiers: Diabetes mellitus half-way insulin use: without ocean transportation intermediary use Diabetes mellitus complication status: without complication Qualified Code(s): E11.9 - Type 2 diabetes mellitus without complications (5) HTN (hypertension) Code(s): I10 - ESSENTIAL (PRIMARY) HYPERTENSION Status: Chronic Qualifiers: Hypertension type: essential hypertension Qualified Code(s): I10 - Essential (primary) hypertension (6) Morbid obesity with BMI of 45.0-49.9, adult Code(s): E66.01 - MORBID (SEVERE) OBESITY DUE TO EXCESS CALORIES; Z68.42 - BODY MASS INDEX (BMI) 45.0-49.9, ADULT Status: Chronic - Plan Plan: Patient is a 54F with PMHx of DM2, CHF, COPD, HTN, chronic back pain, tobacco abuse who was recently seen for L leg cellulitis and left the hospital AMA the morning of 02/15/2019, admitted for new L leg abscess and worsening cellulitis Sepsis due to L leg abscess / cellulitis, Bacteremia -CT shows abscess of L leg, I&D in ED - wound culture growing MRSA, susceptibilties resulted - will continue vanc -Blood cultures + staph epi x2 - likely contaminant -Continue IV Vanc -Overall improved clinical picture, mild interval improvement from yesterday on exam -Dr. Kat consulted - feels the staph epi blood cultures were a contaminant. recommended transitioning to oral as cellulitis improves, 1-2 weeks of doxy and rifampin DM2 -poor control, glipizide held, metformin BID initiated with 24u lantus HS - pt has been refusing insulin, will continue to stress importance of glycemic control - will continue to increase long acting based on fasting glucose levels Hx of HTN -currently labile blood pressures, may be 2/2 to pain rxn -not on home meds -will continue to monitor CHF -EF 50-55% in 07/2018. -will continue home meds at this time and continue to monitor COPD -continue home meds Tobacco Abuse -nicotine patch -smoking cessation counseling -has been prescribed chantix in the past, uncertain if she is currently taking this, can consider on discharge DVT ppx: lovenox Dispo: inpatient medical for IV abx for worsening left leg abscess and cellulitis; abx de-escalated to vancomycin, continued wound management and monitoring. Code: Cardiac only-DNI PCP: Audra Addendum - Attending - Attending Attestation Date/Time: 02/21/19 1047 I personally evaluated the patient and discussed the management with Dr. Harding I agree with the History, Examination, Assessment and Plan documented above with any addition or exceptions noted below.Appreciate recommendations per Dr Kat wound appears improved from yesterday less erythema continue with wound care eventually transition po antibiotic
[2019-02-21] MEDS ORDERED: Insulin Glargine 28 UNITS in Pre-Filled Syringe 1 EACH SC SCH (06:02)
[2019-02-21] MEDS: Mometasone/Formoterol 120 PUFF INHALER INH SCH ×2 (06:52→19:48)
[2019-02-21] MEDS: Enoxaparin Sodium 40 MG/0.4 ML SYRINGE SC SCH (08:55)
[2019-02-21] MEDS: Furosemide 40 MG TAB PO SCH (08:56)
[2019-02-21] MEDS: metFORMIN 500 MG TAB PO SCH ×2 (08:56→17:42)
[2019-02-21] MEDS: Vancomycin 1.5 GRAM/300 ML BAG 1.5 GM in Premix Bag 1 BAG IVPB SCH (08:57)
[2019-02-21] MEDS ORDERED: Insulin Glargine 24 UNITS in Pre-Filled Syringe 1 EACH SC SCH ×2 (09:00→21:00)
[2019-02-21] MEDS ORDERED: Vancomycin HCl 1.25 GM in Sodium Chloride 0.9% 250 ML 250 ML IVPB SCH (11:00)
[2019-02-21] MEDS: Nicotine 21 MG PATCH TD SCH (17:43)
[2019-02-21] MEDS: tiZANidine HCl 4 MG TAB PO SCH (21:58)
[2019-02-21] MEDS: Vancomycin HCl 1.25 GM in Sodium Chloride 0.9% 250 ML 250 ML IVPB SCH (22:17)
[2019-02-22] MEDS: Ketorolac Tromethamine 30 MG/ML VIAL IVP SCH ×2 (06:13→12:45)
--- NOTE | 2019-02-22 06:18 | PDOC.FM ---
- Subjective Subjective: Pt notes continued improvement in her LLL erythema and pain. Denies any fevers or chills. Now agreeable for insulin therapy. - Objective Vital Signs & Weight: Vital Signs (12 hours) Temp Pulse Resp BP Pulse Ox 02/21/19 20:00 96 02/21/19 19:52 98.1 F 99 20 150/77 H 96 Weight Admit Weight 116.074 kg Weight 116.074 kg I&O: 02/20/19 02/21/19 02/22/19 06:59 06:59 06:59 Intake Total 1020 Balance 1020 Result Diagrams: 02/21/19 04:51 02/21/19 04:51 Phys Exam - Physical Examination Constitutional: NAD HEENT: moist MMs, sclera anicteric Neck: full ROM Respiratory: no wheezing, no rales, no rhonchi, clear to auscultation bilateral Cardiovascular: RRR, no significant murmur Gastrointestinal: soft, non-tender Musculoskeletal: pulses present, edema present (2+ left, 1+ right) Neurological: non-focal, moves all 4 limbs Psychiatric: normal affect, A&O x 3 Deviation from normal: LLE erythema continues to improve, less tender daily -: dressings CDI Dx/Plan (1) Cellulitis and abscess of left leg Code(s): L03.116 - CELLULITIS OF LEFT LOWER LIMB; L02.416 - CUTANEOUS ABSCESS OF LEFT LOWER LIMB Status: Acute (2) CHF (congestive heart failure) Code(s): I50.9 - HEART FAILURE, UNSPECIFIED Status: Chronic (3) COPD (chronic obstructive pulmonary disease) Status: Chronic (4) DM type 2 (diabetes mellitus, type 2) Status: Chronic Qualifiers: Diabetes mellitus halfway insulin use: without halfway use Diabetes mellitus complication status: without complication Qualified Code(s): E11.9 - Type 2 diabetes mellitus without complications (5) HTN (hypertension) Code(s): I10 - ESSENTIAL (PRIMARY) HYPERTENSION Status: Chronic Qualifiers: Hypertension type: essential hypertension Qualified Code(s): I10 - Essential (primary) hypertension (6) Morbid obesity with BMI of 45.0-49.9, adult Code(s): E66.01 - MORBID (SEVERE) OBESITY DUE TO EXCESS CALORIES; Z68.42 - BODY MASS INDEX (BMI) 45.0-49.9, ADULT Status: Chronic - Plan Plan: Sepsis due to L leg abscess / cellulitis -wound culture + MRSA -Currently on vanc, will plan for transition to oral today -Dr. Kat consulted - feels the staph epi blood cultures were a contaminant. recommended transitioning to oral as cellulitis improves, 1-2 weeks of doxy and rifampin -Overall improved clinical picture, mild interval improvement from yesterday on exam DM2 -poor control, glipizide discontinued, metformin BID initiated, increasing lantus today to 28u -Recent sugars around 180 Hx of HTN -currently labile blood pressures but consistently elevated -will start low dose lisinopril for BP and renal protection CHF -EF 50-55% in 07/2018. -will continue home meds at this time and continue to monitor COPD -continue home meds Tobacco Abuse -nicotine patch -smoking cessation counseling -has been prescribed chantix in the past, uncertain if she is currently taking this, can consider on discharge DVT ppx: lovenox Dispo: inpatient medical for IV abx for worsening left leg abscess and cellulitis; abx transition to PO today. Continue to monitor. Titrate insulin. Code: Cardiac only-DNI PCP: Audra Addendum - Attending - Attending Attestation Date/Time: 02/22/192027 I personally evaluated the patient and discussed the management with Dr. Harding I agree with the History, Examination, Assessment and Plan documented above with any addition or exceptions noted below. Patient with continued improvement much less erythema to leg today. Appreciate Dr Kat recommendation will start transition to po antibiotic.
[2019-02-22] MEDS: Mometasone/Formoterol 120 PUFF INHALER INH SCH ×2 (07:19→18:19)
[2019-02-22] MEDS: metFORMIN 500 MG TAB PO SCH ×2 (08:24→16:02)
[2019-02-22] MEDS: Furosemide 40 MG TAB PO SCH (08:24)
[2019-02-22] MEDS: Enoxaparin Sodium 40 MG/0.4 ML SYRINGE SC SCH (08:25)
[2019-02-22] MEDS ORDERED: Insulin Glargine 28 UNITS in Pre-Filled Syringe 1 EACH SC SCH (09:00)
[2019-02-22] MEDS: Vancomycin HCl 1.25 GM in Sodium Chloride 0.9% 250 ML 250 ML IVPB SCH (12:45)
[2019-02-22] MEDS ORDERED: Doxycycline 100 MG CAP PO SCH (13:30)
[2019-02-22] MEDS ORDERED: Ibuprofen 600 MG TAB PO PRN (14:16)
[2019-02-22] MEDS: Acetaminophen 325 MG TAB PO PRN ×2 (15:28→20:38)
[2019-02-22] MEDS: Nicotine 21 MG PATCH TD SCH (17:27)
[2019-02-22] MEDS: tiZANidine HCl 4 MG TAB PO SCH (20:35)
[2019-02-22] MEDS: Doxycycline 100 MG CAP PO SCH (20:35)
[2019-02-23] MEDS ORDERED: Insulin Glargine 30 UNITS in Pre-Filled Syringe 1 EACH SC SCH (06:14)
--- NOTE | 2019-02-23 06:20 | PDOC.FM ---
- Subjective Subjective: Pt notes continued improvement in her left leg pain and redness. Tolerated PO abx yesterday. Has continued to utilize insulin and is agreeable to continue as an outpt. Expresses understanding of importance of close followup as an outpt. - Objective Vital Signs & Weight: Vital Signs (12 hours) Temp Pulse Resp BP Pulse Ox 02/22/19 20:25 97.6 F 98 20 142/77 H 98 02/22/19 20:00 98 Weight Admit Weight 116.074 kg Weight 116.074 kg I&O: 02/21/19 02/22/19 02/23/19 06:59 06:59 06:59 Intake Total 730 Balance 730 Result Diagrams: 02/21/19 04:51 02/21/19 04:51 Phys Exam - Physical Examination Constitutional: NAD HEENT: moist MMs, sclera anicteric Neck: full ROM Respiratory: no wheezing, no rales, no rhonchi, clear to auscultation bilateral Cardiovascular: RRR, no significant murmur Gastrointestinal: soft morbidly obese Musculoskeletal: pulses present, edema present (2+ left, 1+ right) Neurological: non-focal, moves all 4 limbs Psychiatric: normal affect, A&O x 3 Deviation from normal: improving erythema of left lower leg, thigh looks greating improved -: left lower leg still has small foci of likely folliculitis that is improved Dx/Plan (1) Cellulitis and abscess of left leg Code(s): L03.116 - CELLULITIS OF LEFT LOWER LIMB; L02.416 - CUTANEOUS ABSCESS OF LEFT LOWER LIMB Status: Acute (2) CHF (congestive heart failure) Code(s): I50.9 - HEART FAILURE, UNSPECIFIED Status: Chronic (3) COPD (chronic obstructive pulmonary disease) Status: Chronic (4) DM type 2 (diabetes mellitus, type 2) Status: Chronic Qualifiers: Diabetes mellitus jail insulin use: without rat exterminator use Diabetes mellitus complication status: without complication Qualified Code(s): E11.9 - Type 2 diabetes mellitus without complications (5) HTN (hypertension) Code(s): I10 - ESSENTIAL (PRIMARY) HYPERTENSION Status: Chronic Qualifiers: Hypertension type: essential hypertension Qualified Code(s): I10 - Essential (primary) hypertension (6) Morbid obesity with BMI of 45.0-49.9, adult Code(s): E66.01 - MORBID (SEVERE) OBESITY DUE TO EXCESS CALORIES; Z68.42 - BODY MASS INDEX (BMI) 45.0-49.9, ADULT Status: Chronic - Plan Plan: Left leg abscess / cellulitis -transitioned to PO doxy yesterday, will add on PO rifampin this morning to continue as outpt -Overall clinical picture greatly improved, consider DC home today w/ close outpt f/u DM2 -poor control, glipizide discontinued, metformin BID initiated, increasing lantus today to 30u -Recent sugars around 160 Hx of HTN -currently labile blood pressures but consistently elevated -will start low dose lisinopril for BP and renal protection, f/u outpt CHF -EF 50-55% in 07/2018. -will continue home meds at this time and continue to monitor COPD -continue home meds Tobacco Abuse -smoking cessation counseling, chantix as outpt has been prescribed, resume on DC DVT ppx: lovenox Dispo: inpatient medical for abx. Transitioned to PO. Insulin titrating, added BP rx. Consider DC later today as clinical improvement in cellulitis. Code: Cardiac only-DNI PCP: Audra Addendum - Attending - Attending Attestation Date/Time: 02/23/19 9379 I personally evaluated the patient and discussed the management with Dr. Harding I agree with the History, Examination, Assessment and Plan documented above with any addition or exceptions noted below. D/C home today with 2 wk of doxy and rifampin per ID. F/U PCP.
[2019-02-23] MEDS: Mometasone/Formoterol 120 PUFF INHALER INH SCH (06:37)
[2019-02-23 07:29] VITALS: TEMP 97.7
[2019-02-23] MEDS ORDERED: Rifampin 300 MG CAP PO SCH (09:00)
[2019-02-23] MEDS ORDERED: Lisinopril 5 MG TAB PO SCH (09:00)
[2019-02-23] MEDS: Doxycycline 100 MG CAP PO SCH (09:11)
[2019-02-23] MEDS: metFORMIN 500 MG TAB PO SCH (09:11)
[2019-02-23 09:12] VITALS: BP 150/81
[2019-02-23] MEDS: Enoxaparin Sodium 40 MG/0.4 ML SYRINGE SC SCH (09:12)
[2019-02-23] MEDS: Furosemide 40 MG TAB PO SCH (09:12)
--- NOTE | 2019-02-23 13:40 | PQF ---
DATE: 02-23-19 ATTN: DR. JEFFERSON FERNANDEZ Please exercise your independent, professional judgment in responding to the clarification form. Clinical indicators are provided on the bottom of this form for your review Please check appropriate box(s) to clarify if the following diagnosis has been ruled in or ruled out: SEPSIS [ ] Ruled in diagnosis [ ] Continue to treat [X] Resolved [ ] Ruled out diagnosis [ ] Other diagnosis [ ] Unable to determine In addition, please specify: Present on Admission (POA): [X] Yes [ ] No [ ] Unable to determine For continuity of documentation, please document condition throughout progress notes and discharge summary. Thank You. CLINICAL INDICATORS - SIGNS / SYMPTOMS / LABS / RESULTS AND LOCATION IN MR: ER NOTES 02-18-19: RR: 24, PULSE: 121, ADMITTED FOR CELLULITIS ON 02/14 AND WAS HOSPITALIZED FOR TWO DAYS BEFORE SHE LEFT AMA ER DX 02-18-19: LEFT LEG CELLULITIS, LEFT LEG ABSCESS H&P 02-18-19: SEPSIS DUE TO L LEG ABSCESS AND CELLULITIS, SEPSIS 2/2 CELLULITIS OF LLE S/P ABSCESS DRAINAGE PN DR. FERNANDEZ 02-23-19: ACUTE CELLULITIS AND ABSCESS OF LEFT LEG LACTIC ACID: 02-18-19: 2.1 02-18-19: 2.4 PULSE: 02-18-19: 102 02-19-19: 102, 101 02-21-19: 103, 103 RISK FACTORS / RESULTS AND LOCATION IN MR: ER NOTES 02-18-19: RR: 24, PULSE: 121, ADMITTED FOR CELLULITIS ON 02/14 AND WAS HOSPITALIZED FOR TWO DAYS BEFORE SHE LEFT AMA TREATMENTS / RESULTS AND LOCATION IN MR: ER NOTES 02-18-19: VANCOMYCIN IV, ZOSYN IV, IVF NS (This form is maintained as a part of the permanent medical record) 2014 [employer]. All Rights Reserved [email or web address] Office: [phone] [facility] HOSPITALShivani
--- NOTE | 2019-02-24 06:01 | DIS ---
DATE OF ADMISSION: 02/18/2019 DATE OF DISCHARGE: 02/23/2019 ADMITTING ATTENDING: Mart Escudero MD. DISCHARGE ATTENDING: Mart Escudero MD. RESIDENT: Eren Harding DO CONSULTS: Infectious Disease, Dr. Aristeo Kat. PROCEDURES: Incision and drainage of left anterior thigh abscess on 02/18/2019. IMAGING: Chest x-ray, congestive heart failure with no significant interval change. Lower extremity CT, findings, relatively large abscess in the anterior subcutaneous fat above the knee with no evidence of pyomyositis or extension across the superficial investing fascia of the anterior compartment of the left leg. Extensive cellulitic changes. Fibular head neck fracture with some periosteal new bone formation. PRIMARY DIAGNOSES: Left leg cellulitis and abscess, uncontrolled diabetes, hypertension. SECONDARY DIAGNOSES: Congestive heart failure, chronic obstructive pulmonary disease, tobacco abuse. DISCHARGE MEDICATIONS: 1. Sertraline 100 mg daily. 2. ProAir two puffs inhalation q.4 hours p.r.n. 3. Symbicort two puffs b.i.d. 4. Tizanidine 4 mg at bedtime. 5. Albuterol sulfate nebs 0.63 mg q.4 hours p.r.n. 6. Furosemide 40 mg daily. 7. Acetaminophen 650 mg p.o. b.i.d. 8. Doxycycline 100 mg p.o. b.i.d. x14 days. 9. Lisinopril 5 mg daily. 10. Metformin 500 mg p.o. b.i.d. 11. Rifampin 300 mg p.o. b.i.d. x14 days. 12. Lantus 30 units subcu daily. 13. Bactrim DS one tablet p.o. b.i.d. x3 days. DISCONTINUED MEDICATIONS: Glipizide. HISTORY OF PRESENT ILLNESS AND HOSPITAL COURSE: A 54-year-old female, who was recently admitted for left leg cellulitis, who left the hospital [place] on 2019, returned to the ED with complaints of worsening left lower extremity pain and erythema. The patient was subsequently found to have an abscess in her left anterior thigh that was incised and drained in the emergency department with subsequent culture. The patient was then admitted for IV antibiotics and started on vancomycin pending cultures. The patient also had blood cultures drawn, which subsequently grew out Staph epidermidis, Dr. Kat was consulted for Infectious Disease recommendations, who felt that 2/2 cultures were likely both contaminant and gave recommendations for oral antibiotic therapy for the patient to continue as an outpatient. The patient was subsequently kept on IV vancomycin for a few days as her left leg pain and erythema improved on a daily basis. The patient was subsequently transitioned to p.o. doxycycline and rifampin, to continue as an outpatient. During the patient's admission, she was also found to have poor glycemic control, only taking glipizide prior to admission. The patient was transitioned to basal insulin and metformin with continued titration throughout her stay. The patient was discharged with these medications with recommendation to follow up with her PCP for continued titration of her basal insulin. The patient was also found to be hypertensive and was started on lisinopril for blood pressure management and renal protection of her uncontrolled diabetes. The patient was instructed on return precautions prior to discharge. After discharge we were notified the patient required a prior authorization for her doxycycline. Pt was given a short term script for bactrim to take while her prior authorization is processed and instructed to resume doxycycline treatment once this is obtained. DISCHARGE INSTRUCTIONS: 1. Location: Home. 2. Diet: Diabetic. 3. Activity: As tolerated. 4. Followup: PCP, Dr. Ballrad at [facility] within 3 to 7 days. Job ID: [id number] MTDD
== END 2019-02-23 15:01 | disposition home or self-care (01) | DRG 872 ==
LOC: ERS 13:33 → T4-A 15:35 → ERS 16:18
PROVIDERS: ADMIT Family Medicine; ATTEND Family Medicine
PROC: 0H9JXZZ Drainage of Left Upper Leg Skin, External Approach (ICD-10-PCS; principal; 2019-02-18)
DX: A41.9 Sepsis, unspecified organism (principal); L02.416 Cutaneous abscess of left lower limb; I50.32 Chronic diastolic (congestive) heart failure; Z68.41 Body mass index [BMI] 40.0-44.9, adult; L03.116 Cellulitis of left lower limb; E11.65 Type 2 diabetes mellitus with hyperglycemia; J44.9 Chronic obstructive pulmonary disease, unspecified; G89.29 Other chronic pain; I11.0 Hypertensive heart disease with heart failure; F32.9 Major depressive disorder, single episode, unspecified; E66.01 Morbid (severe) obesity due to excess calories; F17.200 Nicotine dependence, unspecified, uncomplicated; F41.9 Anxiety disorder, unspecified; M54.9 Dorsalgia, unspecified; Z91.040 Latex allergy status; Z88.5 Allergy status to narcotic agent; Z91.048 Other nonmedicinal substance allergy status; Z79.899 Other long term (current) drug therapy; Z79.51 Long term (current) use of inhaled steroids; Z79.84 Long term (current) use of oral hypoglycemic drugs; Z90.710 Acquired absence of both cervix and uterus; Z85.41 Personal history of malignant neoplasm of cervix uteri; Z28.21 Immunization not carried out because of patient refusal
CPT/HCPCS: 10060; 36415; 36416; 71045; 80048; 80053; 80202; 83605; 85025; 87040; 87070; 87077; 87149; 87186; 87205; 93005; 96361; 96365; 96375; J1650; J1815; J1885; J2543; J3010; J3370; J3490; J7050; Q9967

== ENCOUNTER 2019-02-28 10:55 | Inpatient (IN) | payer OTHER ==
[~2019-02-28 10:55] MED LIST changes: +Atropine Sulfate 1 mg/10 ml Syringe ONE; +EPINEPHRINE IN SOD CHLOR,ISO 1 MG/10 ML SYRINGE IV ONE; -Iopamidol-370 76% 500 ML 1 ML ONE; +Sodium Bicarb 50 MEQ/50 ML Abboject 8.4% SYRINGE ONE
[2019-02-28] MEDS ORDERED: cefTRIAXone\\ROCEPHIN 2 GM VIAL ONE (11:29)
[2019-02-28 11:41] LABS: #Lymphocytes 0.5 thou/uL (1.20-3.40); #Monocytes 0.4 thou/uL (0.11-0.59); #Neutrophils 4.8 thou/uL (1.40-6.50); %Eosinophils 0.2 % (0.0-10.0); %Lymphocytes 8.3 % (21.0-51.0); %Monocytes 6.7 % (0.0-10.0); %Neutrophils 84.8 % (42.0-75.0); Hemoglobin 12.8 g/dL (12.0-16.0); Mean Corpuscular HGB CONC 30.2 g/dL (32.0-36.0); Mean Corpuscular Hemoglobin 26.3 pg (27.0-31.0); Mean Corpuscular Volume 87.2 fL (78.0-98.0); Mean Platelet Volume 8.3 fL (7.4-10.4); Platelet Count 133 thou/uL (130-400); RBC Distribution Width 15.4 % (11.5-14.5); Red Blood Cell (RBC) Count 4.86 mill/uL (4.20-5.40); White Blood Cell (WBC) Count 5.7 thou/uL (4.8-10.8)
--- NOTE | 2019-02-28 11:48 | RAD ---
EXAM: XR Chest 1 View Portable PROVIDED CLINICAL HISTORY: Cough COMPARISON: 02/18/2019 FINDINGS: Cardiac and mediastinal silhouettes is unchanged in appearance. Prominence of the pulmonary vasculatu re and pulmonary interstitium are redemonstrated. Right basilar pleural and/or parenchymal opacity. No evidence for pneumothorax. Evaluation is limited by patient body habitus. Airspace disease in the right upper lung zone cannot be excluded. IMPRESSION: Cardiomegaly and findings compatible with congestive failure and probable right pleural effusion with adjacent atelectasis or infiltrate. Findings appear similar to prior. There is questioned new airspace disease within the right upper lung zone. Correlate with concerns for pulmonary edema or pne umonia. Follow-up is recommended.
[2019-02-28 11:55] LABS: ALT (SGPT) 40 U/L (8-55); AST (SGOT) 38 U/L (5-34); Albumin 3.2 g/dL (3.5-5.0); Alkaline Phosphatase 346 U/L (40-110); Anion Gap 17 mmol/L (10-20); BUN (Urea Nitrogen) 19 mg/dL (9.8-20.1); Bilirubin, Total 0.8 mg/dL (0.2-1.2); Calc. Creatinine Clearance 0 mL/min (70-130); Calcium 9.1 mg/dL (7.8-10.44); Carbon Dioxide 24 mmol/L (22-29); Chloride 100 mmol/L (98-107); Estimated GFR-MDRD 83; Glucose 132 mg/dL (70-105); Potassium 4.2 mmol/L (3.5-5.1); Protein, Total 8.2 g/dL (6.0-8.3); Sodium 137 mmol/L (136-145)
--- NOTE | 2019-02-28 12:55 | PDOC.FPRHP ---
- History of Present Illness Chief Complaint: shortness of breath, painful cough History of Present Illness: Ms. Terrazas is a 54yoF who was recently discharged from the hospital for treatment of a left thigh cellulitis presented to the ED complaining of malaise , subjective fevers, productive cough and shortness of breath. She states her symptoms worsened last night and she felt she needed to be evaluated. She complains of chest pain with coughing. She uses O2 at home as needed. She has been on Rifampin and Doxycycline for treatment of the MRSA cellulitis of her LLE. During her most recent hospital stay she was started on basal insulin and metformin for diabetes. She was also noted to have significant right sided pleural effusion that was tapped in January and noted to be transudative. She has a history of heart failure. ED Course: Tamiflu, Levaquin 750mg, Vancomycin 2g, 2L NS, 2g Rocephin, 2L NS - Allergies/Adverse Reactions Allergies Allergy/AdvReac Type Severity Reaction Status Date / Time latex Allergy Hives Verified 02/14/19 22:52 morphine AdvReac Emesis Verified 02/14/19 22:52 TIDE LAUNDRY DETERGENT Allergy Hives Uncoded 02/14/19 22:52 - Home Medications Medication Instructions Recorded Confirmed Type Albuterol Sulfate [Proair HFA] 2 puff INH PRN PRN 08/04/18 02/28/19 History Sertraline HCl 100 mg PO DAILY 08/04/18 02/28/19 History Budesonide-Formoterol [Symbicort 2 puff INH BID 08/22/18 02/28/19 History 160-4.5] tiZANidine HCl [Tizanidine HCl] 4 mg PO HS 08/22/18 02/28/19 History Albuterol Sulfate [Albuterol 0.63 mg NEB Q4HR PRN 02/05/19 02/28/19 History Sulfate Neb] Furosemide 40 mg PO DAILY #30 tablet 02/08/19 02/28/19 Rx Acetaminophen ER (8hr) [TYLENOL ER 1 tab PO BID #0 02/09/19 02/28/19 Rx (8hr ARTHRITIS PAIN)] Doxycycline [Vibramycin] 100 mg PO BID #28 cap 02/23/19 02/28/19 Rx Insulin Glargine,Hum.Rec.Anlog 30 unit SC DAILY #3 pen 02/23/19 02/28/19 Rx [Lantus Solostar] Lisinopril [Zestril] 5 mg PO DAILY #30 tab 02/23/19 02/28/19 Rx Rifampin [Rifadin] 300 mg PO 0900,2100 #28 cap 02/23/19 02/28/19 Rx metFORMIN [Glucophage] 500 mg PO BID-WM #60 tab 02/23/19 02/28/19 Rx - History PMHx: HFpEF COPD DM II Chronic pain HTN Depression Tobacco use PSHx: hysterectomy for cervical/uterine cancer C-sections x 2 Hernia repair Cholecystecomy FHx: Dad - prostate cancer Mom- from sepsis Social: Denies drugs/alcohol, lives with son Smoked 1ppd x 40 years. "Quit last night" - Review of Systems General: reports: fever/chills, weight/appetite/sleep changes. denies: night sweats, fatigue Eyes: denies: eye pain, vision changes ENT: reports: nasal congestion, rhinorrhea Respiratory: reports: cough, congestion, shortness of breath, exercise intolerance Cardiovascular: reports: chest pain. denies: palpitation, edema, paroxysmal nocturnal dyspnea, orthopnea Gastrointestinal: reports: diarrhea. denies: nausea, vomiting, constipation Genitourinary: denies: incontinence, dysuria, polyuria Skin: reports: lesions (s/p I&D last hospitalization). denies: rashes Musculoskeletal: denies: pain, tenderness Neurological: denies: numbness, syncope - Vital signs BP 160/85 | HR 102 | O2 95% on 2L | RR 14 | Weight 115kg - Physical Exam Constitutional: NAD, awake, alert and oriented, well developed HEENT: normocephalic and atraumatic, PERRLA, EOMI, conjunctiva clear, grossly normal vision, grossly normal hearing, MMM Neck: supple, trachea midline Heart: RRR, normal S1/S2, no murmurs/rubs/gallops Lungs: CTAB, no respiratory distress, no rales/rhonchi, no wheezing -Lungs: Poor air movement, decreased breath sounds on right side Abdomen: soft, non-tender, bowel sounds present Musculoskeletal: normal structure, normal tone Neurological: no focal deficit, CN II-XII intact Skin: good turgor, capillary refill <2 seconds -Skin: 1cm open wound on left thigh, s/p I&D Heme/Lymphatic: no unusual bruising or bleeding, no purpura, no petechia Psychiatric: normal mood and affect, good judgment and insight FMR H&P: Results - Labs Result Diagrams: 02/28/19 11:22 02/28/19 11:22 Lab results: WBC 5.7 thou/uL (4.8-10.8) 02/28/19 11:22 Hgb 12.8 g/dL (12.0-16.0) 02/28/19 11:22 Hct 42.4 % (36.0-47.0) 02/28/19 11:22 MCV 87.2 fL (78.0-98.0) 02/28/19 11:22 Plt Count 133 thou/uL (130-400) 02/28/19 11:22 Neutrophils % 84.8 % (42.0-75.0) H 02/28/19 11:22 Sodium 137 mmol/L (136-145) 02/28/19 11:22 Potassium 4.2 mmol/L (3.5-5.1) 02/28/19 11:22 Chloride 100 mmol/L (98-107) 02/28/19 11:22 Carbon Dioxide 24 mmol/L (22-29) 02/28/19 11:22 BUN 19 mg/dL (9.8-20.1) 02/28/19 11:22 Creatinine 0.73 mg/dL (0.6-1.1) 02/28/19 11:22 Glucose 132 mg/dL (70-105) H 02/28/19 11:22 Lactic Acid 3.2 mmol/L (0.5-2.2) H 02/28/19 11:22 Calcium 9.1 mg/dL (7.8-10.44) 02/28/19 11:22 Total Bilirubin 0.8 mg/dL (0.2-1.2) 02/28/19 11:22 AST 38 U/L (5-34) H 02/28/19 11:22 ALT 40 U/L (8-55) 02/28/19 11:22 Alkaline Phosphatase 346 U/L (40-110) H 02/28/19 11:22 Serum Total Protein 8.2 g/dL (6.0-8.3) 02/28/19 11:22 Albumin 3.2 g/dL (3.5-5.0) L 02/28/19 11:22 - Radiology Interpretation Chest x-ray Status: report reviewed by me (Cardiomegaly and findings compatible with congestive failure and probable right pleural effusion with adjacent atelectasis or infiltrate. Findings appear similar to prior. There is questioned new airspace disease within the right upper lung zone. Correlate with concerns for pulmonary edema or pne umonia. Follow-up is recommended.) FMR H&P: A/P - Problem List (1) Influenza Current Visit: Yes Status: Acute Code(s): J11.1 - FLU DUE TO UNIDENTIFIED INFLUENZA VIRUS W OTH RESP MANIFEST (2) Acute and chronic respiratory failure Current Visit: No Status: Acute Code(s): J96.20 - ACUTE AND CHR RESP FAILURE , UNSP W HYPOXIA OR HYPERCAPNIA (3) Acute on chronic diastolic HF (heart failure) Current Visit: No Status: Acute Code(s): I50.33 - ACUTE ON CHRONIC DIASTOLIC (CONGESTIVE) HEART FAILURE (4) COPD without exacerbation Current Visit: No Status: Acute Code(s): J44.9 - CHRONIC OBSTRUCTIVE PULMONARY DISEASE, UNSPECIFIED (5) Cellulitis and abscess of left leg Current Visit: No Status: Acute Code(s): L03.116 - CELLULITIS OF LEFT LOWER LIMB; L02.416 - CUTANEOUS ABSCESS OF LEFT LOWER LIMB (6) Compression fracture of T11 vertebra Current Visit: No Status: Acute Code(s): S22.080A - WEDGE COMPRESSION FRACTURE OF T11-T12 VERTEBRA, INIT (7) Pleural effusion, right Current Visit: No Status: Acute Code(s): J90 - PLEURAL EFFUSION, NOT ELSEWHERE CLASSIFIED (8) Pneumonia Current Visit: No Status: Acute Code(s): J18.9 - PNEUMONIA, UNSPECIFIED ORGANISM (9) COPD (chronic obstructive pulmonary disease) Current Visit: No Status: Chronic (10) DM type 2 (diabetes mellitus, type 2) Current Visit: No Status: Chronic Qualifiers: Diabetes mellitus nursing home insulin use: without lobsterman use Diabetes mellitus complication status: without complication Qualified Code(s): E11.9 - Type 2 diabetes mellitus without complications (11) HTN (hypertension) Current Visit: No Status: Chronic Code(s): I10 - ESSENTIAL (PRIMARY) HYPERTENSION Qualifiers: Hypertension type: essential hypertension Qualified Code(s): I10 - Essential (primary) hypertension (12) Morbid obesity with BMI of 45.0-49.9, adult Current Visit: No Status: Chronic Code(s): E66.01 - MORBID (SEVERE) OBESITY DUE TO EXCESS CALORIES; Z68.42 - BODY MASS INDEX (BMI) 45.0-49.9, ADULT - Plan Sepsis 2/2 pneumonia - Temp of 101.9F en route via EMS, given 1g Tylenol, Tachypneic and tachycardic. Source: pneumonia - S/p rocephin, vanc, and levaquin in ED. - Will continue Levaquin for pneumonia, she has risk factors for pseudomonas. - Tested Flu positive, droplet precautions. Acute hypoxic respiratory failure 2/2 COPD vs Pneumonia vs influenza - Scheduled DuoNebs - O2 prn for sats >90% - Start Tamiflu - BNP 300, likely not respiratory failure 2/2 CHF - Will restart home lasix tomorrow morning. LLE Cellulitis - Vancomycin - Consult wound care DM II - continue Lantus 30u qAM w/ SSI. Will continue to titrate insulin - Continue metformin HTN - Continue Lisinopril Compression fractures - on Tizanidine - During last hospitalization Toradol worked well for pain, if she complains of pain. FMR H&P: Upper Level - Plan Date/Time: 02/28/19 1253 IRubio DO, have evaluated this patient and agree with findings/plan as outlined by applications intern resident. Pertinent changes/additions are listed here. Subjective: This is a 54 yo female with a pmh of DM2, cervical cancer, morbid obesity, COPD who presents to the ed with a cc of chest pain and coughing. She states these symptoms started overnight. She states the pain is worse on the left and is made worse with movement. In regards to the cough, she has been coughing up yellow phlegm. She denies fever or chills. She does report home use of O2. She denies any previous CAD. Pt does have a smoking history. Pt was recently admitted for cellulitis of her left lower extremity. Cultures grew MRSA and pt was discharged (02/23/19) on doxycycline and rifampin for 14 days. At that time, she was found to have poor glycemic control and was started on basal insulin and metformin with plans to titrate with her PCP in outpt setting. Pt was admitted 02/05/19 for acute hypoxic respiratory failure 2/2 CHF exacerbation. At that time she was found to have a right pleural effusion, which is present and stable on xray today. This fluid was analyzed and found to be free of malignancy and was also transudative, suggesting a cardiac source to her problem. Pt has a history of non-compliance,which may have led in part to today's admission. Objective: General: NAD HEENT: MMM, AT/NC Respiratory: Decreased air movement, mild wheezing, crackles in the right mid lung Cardio: RRR, no murmurs Skin: Healing abscess and wound on her left thigh, no erythema or discharge present. Pt has a diabetic ulcer on her right lateral malleolus A/P Acute hypoxic respiratory failure 2/2 multifocal etiology including COPD, and PNA, Influenza B -Admit to medical -Start Levaquin, vancomycin, and tamiflu -Duonebs, steroids -Respiratory support as needed -Echo 08/06/18 shows EF 50-55% -BNP is 300, pointing away from CHF exacerbation at this time. Sepsis 2/2 PNA -As above Cellulitis -Vancomycin -Consult wound care Other chronic conditions as detailed by the applications intern note. Addendum - Attending - Attending Attestation Date/Time: 02/28/19 8656 I personally evaluated the patient and discussed the management with Dr. Live/ Malini. I agree with the History, Examination, Assessment and Plan documented above with any addition or exceptions noted below. Patient is 54-year-old female with recent hospitalization for left thigh cellulitis here with one day onset of chest pain, body aches, fever, and upper respiratory infection symptoms. Patient reports sudden onset. She reports her symptoms have been progressive since that time. Presented to the emergency room due to the chest pain. Chest x-ray obtained which showed stable findings. Influenza swab was positive. Her lab work is overall stable from the previous admission. she is currently on 2 L of oxygen but vital signs are otherwise normal. Patient is being admitted for sepsis secondary to influenza with possible viral pneumonia included. Patient is been placed on Levaquin and Tamiflu and will continue that for now. Continued mild fluid hydration. She will also be restarted on Vancomycin for the continued treatment of her thigh cellulitis, though she admits this continues to improve with her outpatient antibiotic regimen. otherwise continue symptomatic treatment as well as chronic medications for her chronic conditions.
[2019-02-28] MEDS ORDERED: Oseltamivir 75 MG CAP PO SCH ×2 (13:00→17:15)
[2019-02-28] MEDS ORDERED: HumaLOG 300 UNITS/3 ML VIAL SC PRN ×2 (13:16)
[2019-02-28] MEDS ORDERED: Dextrose 50% Abboject 50 ML SYRINGE SLOW IVP PRN (13:16)
[2019-02-28] MEDS ORDERED: Dextrose 5% in Water 1,000 ML IV PRN (13:16)
[2019-02-28] MEDS ORDERED: Acetaminophen 325 MG TAB PO PRN (13:32)
[2019-02-28] MEDS ORDERED: Ondansetron ODT 4 MG TAB PO PRN (13:32)
[2019-02-28 14:34] LABS: Lactic Acid 1.8 mmol/L (0.5-2.2)
[2019-02-28 14:56] VITALS: BMI 39.2
[2019-02-28] MEDS: metFORMIN 500 MG TAB PO SCH (17:31)
[2019-02-28 18:39] LABS: Troponin I 0.016 ng/mL (< 0.028)
[2019-02-28] MEDS: Ketorolac Tromethamine 30 MG/ML VIAL IVP PRN (20:27)
[2019-02-28] MEDS ORDERED: tiZANidine HCl 4 MG TAB PO SCH (21:00)
[2019-02-28 21:04] LABS: Troponin I 0.027 ng/mL (< 0.028)
[2019-03-01 00:27] VITALS: BP 143/59; TEMP 98.2
[2019-03-01] MEDS: Ketorolac Tromethamine 30 MG/ML VIAL IVP PRN (02:23)
[2019-03-01 05:58] LABS: #Basophils 0.1 thou/uL (0.0-0.2); #Lymphocytes 0.5 thou/uL (1.20-3.40); #Monocytes 0.3 thou/uL (0.11-0.59); %Basophils 1.6 % (0.0-1.0); %Eosinophils 0.3 % (0.0-10.0); %Lymphocytes 11.7 % (21.0-51.0); %Monocytes 8.9 % (0.0-10.0); %Neutrophils 77.6 % (42.0-75.0); Hemoglobin 10.8 g/dL (12.0-16.0); Mean Corpuscular HGB CONC 31.7 g/dL (32.0-36.0); Mean Corpuscular Hemoglobin 27.9 pg (27.0-31.0); Mean Corpuscular Volume 87.9 fL (78.0-98.0); Mean Platelet Volume 8.6 fL (7.4-10.4); Platelet Count 108 thou/uL (130-400); Platelet Morphology Comment Appears Decreased; RBC Distribution Width 15.4 % (11.5-14.5); Red Blood Cell (RBC) Count 3.87 mill/uL (4.20-5.40); White Blood Cell (WBC) Count 3.9 thou/uL (4.8-10.8)
[2019-03-01 06:08] LABS: Anion Gap 14 mmol/L (10-20); BUN (Urea Nitrogen) 22 mg/dL (9.8-20.1); Calc. Creatinine Clearance 154 mL/min (70-130); Calcium 8.1 mg/dL (7.8-10.44); Carbon Dioxide 23 mmol/L (22-29); Chloride 103 mmol/L (98-107); Estimated GFR-MDRD 78; Glucose 181 mg/dL (70-105); Potassium 4.3 mmol/L (3.5-5.1); Sodium 136 mmol/L (136-145)
--- NOTE | 2019-03-01 06:17 | PDOC.FM ---
- Subjective Subjective: Pt complains of worsening shortness of breath this morning. She is satting mid 90's on now 4L. She again noted that she does not wish to be intubated, we discussed the possibility of bipap, she states she would like to avoid it but if it needed to be done she would be amenable. Denies any fevers or chills over the night. She has not been coughing much. - Objective Vital Signs & Weight: Vital Signs (12 hours) Temp Pulse Resp BP Pulse Ox 03/01/19 05:28 107 H 24 H 94 L 03/01/19 01:44 97 20 97 03/01/19 00:26 98.2 F 100 22 H 143/59 H 97 02/28/19 20:58 103 H 22 H 95 02/28/19 19:32 97.5 F L 106 H 22 H 159/66 H 96 Weight Weight 117.027 kg I&O: 02/27/19 02/28/19 03/01/19 06:59 06:59 06:59 Intake Total 740 Balance 740 Result Diagrams: 03/01/19 04:54 03/01/19 04:54 Phys Exam - Physical Examination Mild-Mod respiratory distress HEENT: moist MMs Neck: supple, full ROM Tachypneic, crackles/rhonchi throughout Slightly tachycardic, no murmur Gastrointestinal: soft, non-tender, no distention 2-3+ pitting edema of BLE Neurological: non-focal, moves all 4 limbs Psychiatric: normal affect, A&O x 3 Skin: no rash, cap refill <2 seconds Dx/Plan (1) Influenza Code(s): J11.1 - FLU DUE TO UNIDENTIFIED INFLUENZA VIRUS W OTH RESP MANIFEST Status: Acute (2) Acute and chronic respiratory failure Code(s): J96.20 - ACUTE AND CHR RESP FAILURE, UNSP W HYPOXIA OR HYPERCAPNIA Status: Acute (3) Cellulitis and abscess of left leg Code(s): L03.116 - CELLULITIS OF LEFT LOWER LIMB; L02.416 - CUTANEOUS ABSCESS OF LEFT LOWER LIMB Status: Acute (4) Pneumonia Code(s): J18.9 - PNEUMONIA, UNSPECIFIED ORGANISM Status: Acute (5) COPD (chronic obstructive pulmonary disease) Status: Chronic (6) DM type 2 (diabetes mellitus, type 2) Status: Chronic Qualifiers: Diabetes mellitus fci insulin use: without watermaster use Diabetes mellitus complication status: without complication Qualified Code(s): E11.9 - Type 2 diabetes mellitus without complications (7) HTN (hypertension) Code(s): I10 - ESSENTIAL (PRIMARY) HYPERTENSION Status: Chronic Qualifiers: Hypertension type: essential hypertension Qualified Code(s): I10 - Essential (primary) hypertension (8) Morbid obesity with BMI of 45.0-49.9, adult Code(s): E66.01 - MORBID (SEVERE) OBESITY DUE TO EXCESS CALORIES; Z68.42 - BODY MASS INDEX (BMI) 45.0-49.9, ADULT Status: Chronic - Plan Plan: Sepsis 2/2 pneumonia and influenza - Will continue Levaquin for pneumonia, she has risk factors for pseudomonas. - Tested Flu positive, droplet precautions. Acute hypoxic respiratory failure 2/2 COPD vs Pneumonia vs influenza - Scheduled DuoNebs - Continued hypoxia this morning, requiring 3-4L NC - O2 94% - Continue Tamiflu - Due to wet breath sounds and BLE edema will transition to BID lasix IV - Repeat CXR this morning - Will plan for ABG pending CXR read and duoneb tx - Resume home inhaler regimen LLE Cellulitis - Vancomycin - Consult wound care DM II - continue Lantus 30u qAM w/ SSI. Will continue to titrate insulin - Continue metformin HTN - Continue Lisinopril Compression fractures - on Tizanidine - During last hospitalization Toradol worked well for pain, if she complains of pain. Code: DNI - cardiac only IVF: SL VTE: Lovenox Diet: [facility], and wound management. ELOS 2-3d PCP: Dr. Jaylyn Ballard - [facility] Addendum - Attending - Attending Attestation Date/Time: 03/01/19 1051 I personally evaluated the patient and discussed the management with Dr. Harding. I agree with the History, Examination, Assessment and Plan documented above with any addition or exceptions noted below. Patient admitted for influenza and possible pneumonia. She was on Tamiflu and Levaquin for treatment. This morning, she had worsening of her respiratory status. DNI confirmed explicitly by patient. Code green called and subsequently CODE BLUE. CPR in progress on my arrival to the room. Patient underwent multiple rounds of ACLS algorithm including defib x1 for vfib. She then converted to a bradycardic agonal rhythm. I suspect this was due to hypoxia that could not be improved with BVM as the patient declined intubation. Code called at 0804 and patient . due to Influenza B, Pneumonia, Acute hypoxic respiratory failure 2/2 above, HFpEF, COPD.
[2019-03-01] MEDS ORDERED: PROVENTIL INHALER 6.7 G (200 INHALATIONS) INH PRN (07:27)
[2019-03-01] MEDS ORDERED: Furosemide 40 MG/4 ML VIAL SLOW IVP SCH ×2 (07:30→14:00)
[2019-03-01] MEDS ORDERED: Non-Formulary Item 1 EACH (Insulin Glargine,Hum.Rec.Anlog [Lantus Solostar] 30 UNIT) SC SCH (09:00)
[2019-03-01] MEDS ORDERED: FLU VACC QS2019-20(6MOS UP)/PF 60 MCG/0.5 ML SYRINGE IM ONE (09:00)
[2019-03-01] MEDS ORDERED: Furosemide 40 MG TAB PO SCH (09:00)
[2019-03-01] MEDS ORDERED: Lisinopril 5 MG TAB PO SCH (09:00)
[2019-03-01] MEDS ORDERED: Insulin Glargine 30 UNITS in Pre-Filled Syringe 1 EACH SC SCH (09:00)
[2019-03-01] MEDS ORDERED: Oseltamivir 75 MG CAP PO SCH (09:00)
[2019-03-01] MEDS ORDERED: Enoxaparin Sodium 40 MG/0.4 ML SYRINGE SC SCH (09:00)
[2019-03-01] MEDS: metFORMIN 500 MG TAB PO SCH ×2 (09:43→09:48)
--- NOTE | 2019-03-01 10:10 | PDOC.BPN ---
- Brief Progress Note Progress note of : PE: HEENT: Pupils fixed and dilated CARD: No pulse, no auscultated heart sounds RESP: No spontaneous respirations NEURO: No withdrawal to painful stimuli TOD: 03/01/2019 @ 0804 Family does not request an autopsy Orders: 1. TOD 0804 03/01/2019 2. Ok to remove all lines 3. Ok to release to temple marker
--- NOTE | 2019-03-01 17:54 | DIS ---
DATE OF ADMISSION: 02/28/2019 DATE OF DISCHARGE: 03/01/2019 summary. ATTENDING: Dr. Kaiden Bullard. RESIDENT: Eren Harding DO DATE OF : 03/01/2019. TIME OF : 0804 hours. CAUSE OF : Influenza B with associated acute hypoxic respiratory failure. SECONDARY DIAGNOSES: 1. Chronic obstructive pulmonary disease. 2. Left leg cellulitis. 3. Type 2 diabetes. 4. Hypertension. 5. Morbid obesity. 6. Tobacco abuse. HOSPITAL COURSE: A 54-year-old female was recently discharged from the hospital for treatment of left thigh cellulitis, presented to the ED complaining of malaise, subjective fevers, productive cough, and shortness of breath. She stated that it worsened the previous night, and she felt that need to be evaluated. The patient utilizes home O2 p.r.n. and has a history of COPD and tobacco abuse. ED workup showed the patient be positive for influenza B with chest x-ray findings of right-sided lower lobe pleural effusion that is chronic and a questionable right upper lobe infiltrate. The patient was started on Tamiflu, Levaquin, and vancomycin, and received 2 L normal saline and was subsequently admitted to the hospital. Due to the patient's history of congestive heart failure, IV fluids were stopped, and her home Lasix dose was scheduled to be started the following morning and converted to intravenous route and b.i.d. Over the night, the patient's oxygen requirement gradually increased. By the morning and time of evaluation, the patient was on 4 L, saturating mid 90s, and tachypneic in the low 20s. Chest x-ray was ordered, and morning Lasix dose was given early due to the patient having wet breath sounds and increased lower extremity edema. Around 7 a.m., the patient started become more short of breath and hypoxic, requiring a non-rebreather. The patient eventually was saturating in the low 80s while on the non-rebreather, and code green was called. Personnel responded, and the patient began receiving bag ventilation. The patient then became unresponsive, and a code blue was called. The patient subsequently lost a pulse and CPR was initiated. On admission and that morning the patient had expressed her wishes to not be intubated in the event that she were to decompensate. ACS algorithm was then initiated with continuation of bag ventilation. The patient received 3 rounds of epinephrine and 3 rounds of atropine as well as one 200-joule shock. After 20 minutes of resuscitation attempt, the patient remained asystole and at 0804 hours, the patient was pronounced . The patient's significant other and next of kin were notified and did not request autopsy. Job ID: [id number] MTDD
[2019-03-01] MEDS ORDERED: Mometasone/Formoterol 120 PUFF INHALER INH SCH (18:30)
== END 2019-03-01 08:05 | disposition expired | DRG 871 ==
LOC: ERS 10:55 → T4-B 14:29
PROVIDERS: ADMIT Student in an Organized Health Care Education/Training Program; ATTEND Student in an Organized Health Care Education/Training Program
PROC: 5A2204Z Restoration of Cardiac Rhythm, Single (ICD-10-PCS; principal; 2019-03-01)
PROC: 5A12012 Performance of Cardiac Output, Single, Manual (ICD-10-PCS; 2019-03-01)
PROC: 3E033XZ Introduction of Vasopressor into Peripheral Vein, Percutaneous Approach (ICD-10-PCS; 2019-03-01)
DX: A41.89 Other specified sepsis (principal); I50.33 Acute on chronic diastolic (congestive) heart failure; J10.00 Influenza due to other identified influenza virus with unspecified type of pneumonia; J96.21 Acute and chronic respiratory failure with hypoxia; L03.116 Cellulitis of left lower limb; J44.0 Chronic obstructive pulmonary disease with (acute) lower respiratory infection; I11.0 Hypertensive heart disease with heart failure; E11.9 Type 2 diabetes mellitus without complications; E66.01 Morbid (severe) obesity due to excess calories; G89.29 Other chronic pain; F32.9 Major depressive disorder, single episode, unspecified; B95.62 Methicillin resistant Staphylococcus aureus infection as the cause of diseases classified elsewhere; F17.200 Nicotine dependence, unspecified, uncomplicated; I46.9 Cardiac arrest, cause unspecified; Z68.39 Body mass index [BMI] 39.0-39.9, adult; Z91.040 Latex allergy status; Z88.5 Allergy status to narcotic agent; Z91.048 Other nonmedicinal substance allergy status; Z79.899 Other long term (current) drug therapy; Z79.51 Long term (current) use of inhaled steroids; Z79.4 Long term (current) use of insulin; Z90.49 Acquired absence of other specified parts of digestive tract; Z90.710 Acquired absence of both cervix and uterus; Z85.41 Personal history of malignant neoplasm of cervix uteri
CPT/HCPCS: 36415; 36416; 71045; 80048; 80053; 83605; 83880; 84145; 84484; 85025; 87040; 87070; 87205; 87324; 87449; 87804; 93005; 94640; 96361; 96365; 96367; J0461; J0696; J1815; J1885; J1940; J1956; J3370; J7050; J7620